=== PATIENT | male | born 1970 | race Caucasian/White ===

== ENCOUNTER 2016-07-08 20:59 | Inpatient (IN) | payer MEDICARE, OTHER ==
[2016-07-08] MEDS ORDERED: LEVOFLOXACIN 750MG-D5W PMX 750 MG in DEXTROSE/WATER 1 150ML.BAG IVPB STA (21:14)
[2016-07-08] MEDS ORDERED: SODIUM CHLORIDE 0.9% 2,000 ML IV STA (21:15)
[2016-07-08] MEDS ORDERED: DEXTROSE 50%-WATER 50 ML SYRINGE IVP STA (21:16)
[2016-07-08] MEDS ORDERED: SODIUM CHLORIDE 0.9% 1,000 ML IV ONE (21:19)
--- NOTE | 2016-07-08 21:19 | XR ---
EXAMINATION TYPE: XR chest 1V DATE OF EXAM: 07/08/2016 9:13 PM COMPARISON: 07/25/15 HISTORY: Chest pain TECHNIQUE: Single frontal view of the chest is obtained. FINDINGS: There is no focal air space opacity, pleural effusion, or pneumothorax seen. There is evidence of cardiomegaly. Pacer device is in place. The osseous structures are intact. IMPRESSION: 1. Cardiomegaly without evidence for acute pulmonary disease.
[2016-07-08] MEDS: ONDANSETRON 4 MG/2 ML VIAL IVP STA ×2 (21:41→22:38)
[2016-07-08 21:43] LABS: Calcium 8.8 mg/dL (8.4-10.2); Magnesium 2.4 mg/dL (1.6-2.3); Phosphorous 7.9 mg/dL (2.5-4.5); Potassium 5.1 mmol/L (3.5-5.1); Total Bilirubin 7.2 mg/dL (0.2-1.3); Total Protein 6.6 g/dL (6.3-8.2)
[2016-07-08 21:44] LABS: Basophils % (A) 0 %; CH 32.3; CHCM 31.7; Eosinophils % (A) 0 %; HDW 2.86; HGB 13.6 gm/dL (13.0-17.5); Hypochromasia Slight; Luc # (Auto) 0.19; Luc % (Auto) 2; Lymphocytes % (A) 22 %; MCH 32.5 pg (25.0-35.0); MCHC 31.7 g/dL (31.0-37.0); MCV 102.4 fL (80.0-100.0); Macrocytosis Slight; Mean Platelet Volume 9.5; Monocytes # (A) 0.6 k/uL (0-1.0); Monocytes % (A) 6 %; Neutrophils # (A) 6.3 k/uL (1.3-7.7); Neutrophils % (A) 69 %; RDW 14.5 % (11.5-15.5); WBC 9.1 k/uL (3.8-10.6); WBC (Perox) 9.18
--- NOTE | 2016-07-08 21:52 | ED ---
SOB HPI - General Chief Complaint: Shortness of Breath Stated Complaint: DINAH Time Seen by Provider: 07/08/16 21:17 Source: patient, family, EMS Mode of arrival: EMS Limitations: altered mental status - History of Present Illness Initial Comments: This patient is a 45-year-old man with history of cardiomyopathy and congestive heart failure, who comes into the emergency department by ambulance to be evaluated for shortness of breath. The patient does appear moderately delirious and most of the history I was able to obtain comes from the patient's parents. They state that the patient had a routine cardiology appointment at [facility] on Wednesday. While he was at the appointment the physician there felt that he was dehydrated and gave him IV fluids for about 2 hours, and he was released home following. Since that time the patient has not been very active, spending most of the his time resting. The following day he started having a little bit of shortness of breath and he was also having some dry heaves his parents report. He has not been out of bed much since that time and is respiratory status worsened tonight so they called the ambulance. The patient is denying chest pain. He is not having a productive cough. He denies fever. He also denies abdominal pain, change in bowel movements, but he does acknowledge having nausea and multiple rounds of vomiting. MD Complaint: shortness of breath -: days(s) - Related Data Home Medications Medication Instructions Recorded Confirmed Carvedilol [Coreg] 3.125 mg PO BID 07/25/15 07/25/15 Digoxin [Lanoxin] 250 mcg PO DAILY 07/25/15 07/25/15 Lisinopril [Prinivil] 5 mg PO DAILY 07/25/15 07/25/15 Potassium Chloride ER [K-Dur 20] 20 meq PO DAILY 07/25/15 07/25/15 Spironolactone [Aldactone] 25 mg PO DAILY 07/25/15 07/25/15 Torsemide [Demadex] 40 mg PO DAILY 07/25/15 07/25/15 Warfarin [Coumadin] 10 mg PO MOWEFR 07/25/15 07/26/15 Warfarin [Coumadin] 7.5 mg PO SUTUTHSA 07/26/15 07/26/15 Previous Rx's Medication Instructions Recorded HYDROcodone/APAP 5-325MG [Olpe 1 tab PO Q6HR PRN #20 tab 07/28/15 5-325] Pantoprazole [Protonix] 40 mg PO AC-BRKFST #30 tablet. 07/28/15 metroNIDAZOLE [Flagyl] 500 mg PO TID #21 tab 07/28/15 Allergies Allergy/AdvReac Type Severity Reaction Status Date / Time codeine Allergy Unknown Dyspnea Verified 07/08/16 22:15 Penicillins Allergy Unknown Dyspnea Verified 07/08/16 22:15 Review of Systems ROS Statement: Those systems with pertinent positive or pertinent negative responses have been documented in the HPI. ROS Other: All systems not noted in ROS Statement are negative. Limitations: ROS unobtainable due to patients medical condition Constitutional: Denies: fever Respiratory: Reports: cough, dyspnea. Denies: hemoptysis Cardiovascular: Denies: chest pain, palpitations, orthopnea, edema Gastrointestinal: Reports: nausea, vomiting. Denies: abdominal pain, diarrhea, melena, hematochezia Genitourinary: Denies: dysuria Musculoskeletal: Denies: back pain Neurological: Denies: headache Past Medical History Past Medical History: Atrial Fibrillation, Heart Failure, Pneumonia History of Any Multi-Drug Resistant Organisms: None Reported Past Surgical History: Cholecystectomy Additional Past Surgical History / Comment(s): pacemaker/defib, cardiac cath 2016 Past Anesthesia/Blood Transfusion Reactions: No Reported Reaction Past Psychological History: No Psychological Hx Reported Smoking Status: Current every day smoker Past Alcohol Use History: None Reported Past Drug Use History: None Reported - Past Family History Mother Family Medical History: Congestive Heart Failure (CHF) Father Family Medical History: Hyperlipidemia General Exam Limitations: no limitations General appearance: alert, in distress, cachectic, other (This patient is a middle-aged white man who appears older than his stated age, and does appear to be in respiratory distress, being moderately tachypneic. He also appears dehydrated.) Head exam: Present: atraumatic, normocephalic Eye exam: Present: normal appearance, PERRL. Absent: scleral icterus, conjunctival injection ENT exam: Present: mucous membranes dry Neck exam: Present: normal inspection, full ROM Respiratory exam: Present: respiratory distress, rhonchi. Absent: wheezes, rales, stridor, accessory muscle use, decreased breath sounds, prolonged expiratory Cardiovascular Exam: Present: tachycardia, normal heart sounds. Absent: systolic murmur, diastolic murmur, rubs, gallop GI/Abdominal exam: Present: soft. Absent: distended, tenderness, guarding, rebound, mass Extremities exam: Present: normal inspection. Absent: normal capillary refill ( Capillary refill is delayed), pedal edema, calf tenderness Back exam: Absent: CVA tenderness (R), CVA tenderness (L) Neurological exam: Present: alert. Absent: motor sensory deficit Skin exam: Present: dry, intact, mottled, other (Skin is cool and mottled). Absent: rash, cyanosis, diaphoretic, erythema, urticaria, vesicles, petechiae, pallor Course Vital Signs 07/08/16 07/08/16 07/08/16 21:06 21:21 21:30 Temperature 100.6 F H Pulse Rate 123 H 119 H Pulse Rate [ 112 H Strapping Machine Tender ] Respiratory 24 24 Rate Blood Pressure 82/54 111/75 O2 Sat by Pulse Oximetry 07/08/16 07/08/16 07/08/16 22:00 22:08 23:18 Temperature 98.5 F Pulse Rate 118 H 111 H Pulse Rate [ Strapping Machine Tender ] Respiratory 26 H 24 24 Rate Blood Pressure 121/57 185/102 O2 Sat by Pulse 100 96 Oximetry 07/09/16 07/09/16 07/09/16 00:14 00:31 01:13 Temperature 98.2 F Pulse Rate 108 H 107 H 106 H Pulse Rate [ Strapping Machine Tender ] Respiratory 26 H 24 20 Rate Blood Pressure 92/62 104/55 98/68 O2 Sat by Pulse 98 97 100 Oximetry 07/09/16 07/09/16 07/09/16 02:19 03:00 03:40 Temperature 98.1 F 97.9 F Pulse Rate 101 H 100 100 Pulse Rate [ Strapping Machine Tender ] Respiratory 24 20 20 Rate Blood Pressure 76/52 125/75 105/53 O2 Sat by Pulse 97 99 98 Oximetry 07/09/16 07/09/16 07/09/16 04:17 04:23 04:38 Temperature Pulse Rate 96 99 95 Pulse Rate [ Strapping Machine Tender ] Respiratory 20 20 Rate Blood Pressure 89/55 94/56 88/52 O2 Sat by Pulse 100 99 Oximetry 07/09/16 07/09/16 07/09/16 04:53 05:08 05:23 Temperature 97.4 F L Pulse Rate 96 97 93 Pulse Rate [ Strapping Machine Tender ] Respiratory 20 20 20 Rate Blood Pressure 83/55 90/59 93/72 O2 Sat by Pulse 98 99 96 Oximetry 07/09/16 07/09/16 07/09/16 05:47 05:53 06:07 Temperature Pulse Rate 97 95 97 Pulse Rate [ Strapping Machine Tender ] Respiratory 20 20 20 Rate Blood Pressure 97/57 95/62 103/70 O2 Sat by Pulse 98 95 97 Oximetry 07/09/16 07/09/16 06:23 06:38 Temperature Pulse Rate 98 97 Pulse Rate [ Strapping Machine Tender ] Respiratory 20 20 Rate Blood Pressure 96/68 95/65 O2 Sat by Pulse 94 L 97 Oximetry Procedures - Central Line Placement Right Femoral Consent Obtained: verbal consent Time Out Performed: Yes Patient Placed on Monitor/Pulse Ox: Yes Prep: mask, gown, gloves Central Line Prep: Chlorhexidine scrub Local Anesthesia Used: Lidocaine 1% Central Line Lumen Inserted: triple Central Line Position: good blood return, all ports aspirated, flushed, capped, sutured in place with 2-0 silk Dressing Applied: Tegaderm Patient Tolerated Procedure: well Additional Comments: Patient continued to have some oozing from the site of the central line insertion. I did remove the dressing, apply some skin adhesive at the insertion site which stop the oozing, and then replace the sterile dressing after cleansing began with chlorhexidine. - Sepsis Sepsis Focused Exam #1 Sepsis Focused Exam Date: 07/09/16 Sepsis Focused Exam Time: 02:30 Sepsis Focused Exam Complete: Yes Vital Signs & RN Notes Reviewed: Yes Capillary Refill: < 2 Seconds: Fingers, > 2 Seconds: Toes Peripheral Pulses: Weak: Radial (R), Posterior Tibialis (R) Skin Color: Mottled Respiratory Exam: rhonchi Cardiovascular Exam: tachycardia Medical Decision Making - Medical Decision Making patient is a 45-year-old man with underlying cardiomyopathy, who presents emergency Department with what appears to be severe sepsis. The patient received fluid resuscitation and broad-spectrum antibiotics. The patient's blood pressure did respond to fluids initially and then it did trend hypotensive again. In light of this a central line was placed and the patient had additional fluids and pressors started. Patient case discussed with the third rail installer, with the admitting physician, and recommendations are incorporated. Patient initially not producing urine however after fluids we did obtain urine that does appear to show significant pyuria. The patient's serial exams do appear to be improving. The mottling of the skin is improving and his mentation is better. Patient admitted for further ICU care. Remains in critical but slightly improved condition. - Lab Data Result diagrams: 07/08/16 21:03 07/08/16 21:03 Lab Results 07/08/16 07/08/16 07/08/16 Range/Units 21:03 21:03 21:03 WBC 9.1 (3.8-10.6) k/uL RBC 4.20 L (4.30-5.90) m/uL Hgb 13.6 (13.0-17.5) gm/dL Hct 43.0 (39.0-53.0) % MCV 102.4 H (80.0-100.0) fL MCH 32.5 (25.0-35.0) pg MCHC 31.7 (31.0-37.0) g/dL RDW 14.5 (11.5-15.5) % Plt Count 169 (150-450) k/uL Neutrophils % 69 % Lymphocytes % 22 % Monocytes % 6 % Eosinophils % 0 % Basophils % 0 % Neutrophils # 6.3 (1.3-7.7) k/uL Lymphocytes # 2.0 (1.0-4.8) k/uL Monocytes # 0.6 (0-1.0) k/uL Eosinophils # 0.0 (0-0.7) k/uL Basophils # 0.0 (0-0.2) k/uL Hypochromasia Slight Macrocytosis Slight PT (9.0-12.0) sec INR (<1.1) APTT (22.0-30.0) sec D-Dimer 3.99 H (<0.60) mg/L FEU Sample Site ABG pH (7.35-7.45) ABG pCO2 (35-45) mmHg ABG pO2 (83-108) mmHg ABG HCO3 (21-25) mmol/L ABG Total CO2 (19-24) mmol/L ABG O2 Saturation (94-97) % ABG Base Excess mmol/L FiO2 % Sodium (137-145) mmol/L Potassium (3.5-5.1) mmol/L Chloride (98-107) mmol/L Carbon Dioxide (22-30) mmol/L Anion Gap mmol/L BUN (9-20) mg/dL Creatinine (0.66-1.25) mg/dL Est GFR (MDRD) Af Amer (>60 ml/min/1.73 sqM) Est GFR (MDRD) Non-Af (>60 ml/min/1.73 sqM) Glucose (74-99) mg/dL POC Glucose (mg/dL) (75-99) mg/dL POC Glu Staff Nurse ID Plasma Lactic Acid Magdi (0.7-2.0) mmol/L Calcium (8.4-10.2) mg/dL Phosphorus (2.5-4.5) mg/dL Magnesium (1.6-2.3) mg/dL Total Bilirubin (0.2-1.3) mg/dL AST (17-59) U/L ALT (21-72) U/L Alkaline Phosphatase (38-126) U/L Total Creatine Kinase 494 H (55-170) U/L CK-MB (CK-2) 5.0 H* (0.0-2.4) ng/mL CK-MB (CK-2) Rel Index 1.0 Troponin I 0.079 H* (0.000-0.034) ng/mL NT-Pro-B Natriuret Pep pg/mL Total Protein (6.3-8.2) g/dL Albumin (3.5-5.0) g/dL Amylase (30-110) U/L Lipase (23-300) U/L Urine Color Urine Appearance (Clear) Urine pH (5.0-8.0) Ur Specific [place] (1.001-1.035) Urine Protein (Negative) Urine Glucose (UA) (Negative) Urine Ketones (Negative) Urine Blood (Negative) Urine Nitrite (Negative) Urine Bilirubin (Negative) Urine Urobilinogen (<2.0) mg/dL Ur Leukocyte Esterase (Negative) Urine RBC (0-5) /hpf Urine WBC (0-5) /hpf Ur Squamous Epith Cells (0-4) /hpf Urine Bacteria (None) /hpf Digoxin ng/mL Serum Alcohol mg/dL Blood Type Blood Type Recheck Antibody Screen Spec Expiration Date 07/08/16 07/08/16 07/08/16 Range/Units 21:03 21:03 21:03 WBC (3.8-10.6) k/uL RBC (4.30-5.90) m/uL Hgb (13.0-17.5) gm/dL Hct (39.0-53.0) % MCV (80.0-100.0) fL MCH (25.0-35.0) pg MCHC (31.0-37.0) g/dL RDW (11.5-15.5) % Plt Count (150-450) k/uL Neutrophils % % Lymphocytes % % Monocytes % % Eosinophils % % Basophils % % Neutrophils # (1.3-7.7) k/uL Lymphocytes # (1.0-4.8) k/uL Monocytes # (0-1.0) k/uL Eosinophils # (0-0.7) k/uL Basophils # (0-0.2) k/uL Hypochromasia Macrocytosis PT (9.0-12.0) sec INR (<1.1) APTT (22.0-30.0) sec D-Dimer (<0.60) mg/L FEU Sample Site ABG pH (7.35-7.45) ABG pCO2 (35-45) mmHg ABG pO2 (83-108) mmHg ABG HCO3 (21-25) mmol/L ABG Total CO2 (19-24) mmol/L ABG O2 Saturation (94-97) % ABG Base Excess mmol/L FiO2 % Sodium 133 L (137-145) mmol/L Potassium 5.1 (3.5-5.1) mmol/L Chloride 100 (98-107) mmol/L Carbon Dioxide 8 L* (22-30) mmol/L Anion Gap 25 mmol/L BUN 32 H (9-20) mg/dL Creatinine 1.80 H (0.66-1.25) mg/dL Est GFR (MDRD) Af Amer 49 (>60 ml/min/1.73 sqM) Est GFR (MDRD) Non-Af 41 (>60 ml/min/1.73 sqM) Glucose 59 L (74-99) mg/dL POC Glucose (mg/dL) (75-99) mg/dL POC Glu Staff Nurse ID Plasma Lactic Acid Magdi 13.6 H* (0.7-2.0) mmol/L Calcium 8.8 (8.4-10.2) mg/dL Phosphorus 7.9 H (2.5-4.5) mg/dL Magnesium 2.4 H (1.6-2.3) mg/dL Total Bilirubin 7.2 H (0.2-1.3) mg/dL AST 578 H (17-59) U/L ALT 490 H (21-72) U/L Alkaline Phosphatase 86 (38-126) U/L Total Creatine Kinase (55-170) U/L CK-MB (CK-2) (0.0-2.4) ng/mL CK-MB (CK-2) Rel Index Troponin I (0.000-0.034) ng/mL NT-Pro-B Natriuret Pep 04617 pg/mL Total Protein 6.6 (6.3-8.2) g/dL Albumin 4.0 (3.5-5.0) g/dL Amylase 42 (30-110) U/L Lipase 145 (23-300) U/L Urine Color Urine Appearance (Clear) Urine pH (5.0-8.0) Ur Specific Whitefield (1.001-1.035) Urine Protein (Negative) Urine Glucose (UA) (Negative) Urine Ketones (Negative) Urine Blood (Negative) Urine Nitrite (Negative) Urine Bilirubin (Negative) Urine Urobilinogen (<2.0) mg/dL Ur Leukocyte Esterase (Negative) Urine RBC (0-5) /hpf Urine WBC (0-5) /hpf Ur Squamous Epith Cells (0-4) /hpf Urine Bacteria (None) /hpf Digoxin ng/mL Serum Alcohol mg/dL Blood Type Blood Type Recheck Antibody Screen Spec Expiration Date 07/08/16 07/08/16 07/08/16 Range/Units 21:03 21:03 22:00 WBC (3.8-10.6) k/uL RBC (4.30-5.90) m/uL Hgb (13.0-17.5) gm/dL Hct (39.0-53.0) % MCV (80.0-100.0) fL MCH (25.0-35.0) pg MCHC (31.0-37.0) g/dL RDW (11.5-15.5) % Plt Count (150-450) k/uL Neutrophils % % Lymphocytes % % Monocytes % % Eosinophils % % Basophils % % Neutrophils # (1.3-7.7) k/uL Lymphocytes # (1.0-4.8) k/uL Monocytes # (0-1.0) k/uL Eosinophils # (0-0.7) k/uL Basophils # (0-0.2) k/uL Hypochromasia Macrocytosis PT 55.1 H (9.0-12.0) sec INR 5.5 H* (<1.1) APTT 25.9 (22.0-30.0) sec D-Dimer (<0.60) mg/L FEU Sample Site ABG pH (7.35-7.45) ABG pCO2 (35-45) mmHg ABG pO2 (83-108) mmHg ABG HCO3 (21-25) mmol/L ABG Total CO2 (19-24) mmol/L ABG O2 Saturation (94-97) % ABG Base Excess mmol/L FiO2 % Sodium (137-145) mmol/L Potassium (3.5-5.1) mmol/L Chloride (98-107) mmol/L Carbon Dioxide (22-30) mmol/L Anion Gap mmol/L BUN (9-20) mg/dL Creatinine (0.66-1.25) mg/dL Est GFR (MDRD) Af Amer (>60 ml/min/1.73 sqM) Est GFR (MDRD) Non-Af (>60 ml/min/1.73 sqM) Glucose (74-99) mg/dL POC Glucose (mg/dL) (75-99) mg/dL POC Glu Staff Nurse ID Plasma Lactic Acid Magdi (0.7-2.0) mmol/L Calcium (8.4-10.2) mg/dL Phosphorus (2.5-4.5) mg/dL Magnesium (1.6-2.3) mg/dL Total Bilirubin (0.2-1.3) mg/dL AST (17-59) U/L ALT (21-72) U/L Alkaline Phosphatase (38-126) U/L Total Creatine Kinase (55-170) U/L CK-MB (CK-2) (0.0-2.4) ng/mL CK-MB (CK-2) Rel Index Troponin I (0.000-0.034) ng/mL NT-Pro-B Natriuret Pep pg/mL Total Protein (6.3-8.2) g/dL Albumin (3.5-5.0) g/dL Amylase (30-110) U/L Lipase (23-300) U/L Urine Color Urine Appearance (Clear) Urine pH (5.0-8.0) Ur Specific [place] (1.001-1.035) Urine Protein (Negative) Urine Glucose (UA) (Negative) Urine Ketones (Negative) Urine Blood (Negative) Urine Nitrite (Negative) Urine Bilirubin (Negative) Urine Urobilinogen (<2.0) mg/dL Ur Leukocyte Esterase (Negative) Urine RBC (0-5) /hpf Urine WBC (0-5) /hpf Ur Squamous Epith Cells (0-4) /hpf Urine Bacteria (None) /hpf Digoxin 0.5 ng/mL Serum Alcohol <10 mg/dL Blood Type B Positive Blood Type Recheck B Pos Antibody Screen NEGATIVE Spec Expiration Date 07/11/2016230207/08/16 07/09/16 07/09/16 Range/Units 23:21 01:10 02:15 WBC (3.8-10.6) k/uL RBC (4.30-5.90) m/uL Hgb (13.0-17.5) gm/dL Hct (39.0-53.0) % MCV (80.0-100.0) fL MCH (25.0-35.0) pg MCHC (31.0-37.0) g/dL RDW (11.5-15.5) % Plt Count (150-450) k/uL Neutrophils % % Lymphocytes % % Monocytes % % Eosinophils % % Basophils % % Neutrophils # (1.3-7.7) k/uL Lymphocytes # (1.0-4.8) k/uL Monocytes # (0-1.0) k/uL Eosinophils # (0-0.7) k/uL Basophils # (0-0.2) k/uL Hypochromasia Macrocytosis PT (9.0-12.0) sec INR (<1.1) APTT (22.0-30.0) sec D-Dimer (<0.60) mg/L FEU Sample Site ABG pH (7.35-7.45) ABG pCO2 (35-45) mmHg ABG pO2 (83-108) mmHg ABG HCO3 (21-25) mmol/L ABG Total CO2 (19-24) mmol/L ABG O2 Saturation (94-97) % ABG Base Excess mmol/L FiO2 % Sodium (137-145) mmol/L Potassium (3.5-5.1) mmol/L Chloride (98-107) mmol/L Carbon Dioxide (22-30) mmol/L Anion Gap mmol/L BUN (9-20) mg/dL Creatinine (0.66-1.25) mg/dL Est GFR (MDRD) Af Amer (>60 ml/min/1.73 sqM) Est GFR (MDRD) Non-Af (>60 ml/min/1.73 sqM) Glucose (74-99) mg/dL POC Glucose (mg/dL) 107 H (75-99) mg/dL POC Glu Staff Nurse ID Lyly Mcpherson Plasma Lactic Acid Magdi 14.4 H* (0.7-2.0) mmol/L Calcium (8.4-10.2) mg/dL Phosphorus (2.5-4.5) mg/dL Magnesium (1.6-2.3) mg/dL Total Bilirubin (0.2-1.3) mg/dL AST (17-59) U/L ALT (21-72) U/L Alkaline Phosphatase (38-126) U/L Total Creatine Kinase (55-170) U/L CK-MB (CK-2) (0.0-2.4) ng/mL CK-MB (CK-2) Rel Index Troponin I (0.000-0.034) ng/mL NT-Pro-B Natriuret Pep pg/mL Total Protein (6.3-8.2) g/dL Albumin (3.5-5.0) g/dL Amylase (30-110) U/L Lipase (23-300) U/L Urine Color Dark Red Urine Appearance Turbid (Clear) Urine pH 6.5 (5.0-8.0) Ur Specific [place] 1.024 (1.001-1.035) Urine Protein 3+ H (Negative) Urine Glucose (UA) 1+ H (Negative) Urine Ketones Negative (Negative) Urine Blood Large H (Negative) Urine Nitrite Negative (Negative) Urine Bilirubin Negative (Negative) Urine Urobilinogen <2.0 (<2.0) mg/dL Ur Leukocyte Esterase Large H (Negative) Urine RBC >182 H (0-5) /hpf Urine WBC >182 H (0-5) /hpf Ur Squamous Epith Cells 9 H (0-4) /hpf Urine Bacteria Few H (None) /hpf Digoxin ng/mL Serum Alcohol mg/dL Blood Type Blood Type Recheck Antibody Screen Spec Expiration Date 07/09/16 07/09/16 Range/Units 02:40 02:54 WBC (3.8-10.6) k/uL RBC (4.30-5.90) m/uL Hgb (13.0-17.5) gm/dL Hct (39.0-53.0) % MCV (80.0-100.0) fL MCH (25.0-35.0) pg MCHC (31.0-37.0) g/dL RDW (11.5-15.5) % Plt Count (150-450) k/uL Neutrophils % % Lymphocytes % % Monocytes % % Eosinophils % % Basophils % % Neutrophils # (1.3-7.7) k/uL Lymphocytes # (1.0-4.8) k/uL Monocytes # (0-1.0) k/uL Eosinophils # (0-0.7) k/uL Basophils # (0-0.2) k/uL Hypochromasia Macrocytosis PT (9.0-12.0) sec INR (<1.1) APTT (22.0-30.0) sec D-Dimer (<0.60) mg/L FEU Sample Site rbrac ABG pH 7.13 L* (7.35-7.45) ABG pCO2 17 L* (35-45) mmHg ABG pO2 108 (83-108) mmHg ABG HCO3 5 L* (21-25) mmol/L ABG Total CO2 6 L (19-24) mmol/L ABG O2 Saturation 96.0 (94-97) % ABG Base Excess -22.3 mmol/L FiO2 32 % Sodium (137-145) mmol/L Potassium (3.5-5.1) mmol/L Chloride (98-107) mmol/L Carbon Dioxide (22-30) mmol/L Anion Gap mmol/L BUN (9-20) mg/dL Creatinine (0.66-1.25) mg/dL Est GFR (MDRD) Af Amer (>60 ml/min/1.73 sqM) Est GFR (MDRD) Non-Af (>60 ml/min/1.73 sqM) Glucose (74-99) mg/dL POC Glucose (mg/dL) (75-99) mg/dL POC Glu Staff Nurse ID Plasma Lactic Acid Magdi (0.7-2.0) mmol/L Calcium (8.4-10.2) mg/dL Phosphorus (2.5-4.5) mg/dL Magnesium (1.6-2.3) mg/dL Total Bilirubin (0.2-1.3) mg/dL AST (17-59) U/L ALT (21-72) U/L Alkaline Phosphatase (38-126) U/L Total Creatine Kinase (55-170) U/L CK-MB (CK-2) (0.0-2.4) ng/mL CK-MB (CK-2) Rel Index Troponin I 0.108 H* (0.000-0.034) ng/mL NT-Pro-B Natriuret Pep pg/mL Total Protein (6.3-8.2) g/dL Albumin (3.5-5.0) g/dL Amylase (30-110) U/L Lipase (23-300) U/L Urine Color Urine Appearance (Clear) Urine pH (5.0-8.0) Ur Specific [place] (1.001-1.035) Urine Protein (Negative) Urine Glucose (UA) (Negative) Urine Ketones (Negative) Urine Blood (Negative) Urine Nitrite (Negative) Urine Bilirubin (Negative) Urine Urobilinogen (<2.0) mg/dL Ur Leukocyte Esterase (Negative) Urine RBC (0-5) /hpf Urine WBC (0-5) /hpf Ur Squamous Epith Cells (0-4) /hpf Urine Bacteria (None) /hpf Digoxin ng/mL Serum Alcohol mg/dL Blood Type Blood Type Recheck Antibody Screen Spec Expiration Date - EKG Data -: EKG Interpreted by Ca EKG shows normal: sinus rhythm, axis (Normal), intervals (Normal), ST-T waves ( There are T inversions in the inferior leads suggestive of possible inferior ischemia.) Rate: tachycardia (Rate approximately 122 bpm) Interpretation: other (Possible old lateral infarct) Critical Care Time Critical Care Time: Yes (75 minutes) Disposition Clinical Impression: Severe sepsis, Elevated troponin I measurement, Lactic acidosis, Abdominal pain , Vomiting, Coumadin toxicity, Acute renal failure (ARF), Elevated transaminase level, Urinary tract infection Disposition: ADMITTED IP TO THIS HOSP Condition: Critical
[2016-07-08] MEDS ORDERED: RX INFO: IV CONTRAST WAS GIVEN 1 EACH MISC MISCELLANE PRN (22:07)
[2016-07-08 22:10] LABS: Troponin I 0.079 ng/mL (0.000-0.034)
[2016-07-08 22:16] LABS: Partial Thromboplastin Time 25.9 sec (22.0-30.0)
[2016-07-08 22:21] LABS: Prothrombin Time 55.1 sec (9.0-12.0)
[2016-07-08 22:25] LABS: INR 5.5 (<1.1)
[2016-07-08] MEDS: TOPICAL SKIN ADHESIVE 1 EACH AMP TOPICAL ONE (22:41)
[2016-07-08 22:51] LABS: Alcohol <10 mg/dL; Digoxin 0.5 ng/mL
[2016-07-08] MEDS ORDERED: MORPHINE SULFATE 4 MG/ML SYRINGE IV STA (23:04)
[2016-07-08 23:23] LABS: Glucose,Whole Blood 107 mg/dL (75-99)
[2016-07-09] MEDS ORDERED: SODIUM CHLORIDE 0.9% 1,000 ML IV STA (00:21)
--- NOTE | 2016-07-09 00:22 | CT ---
EXAM: CT Angiography Chest With Intravenous Contrast CLINICAL HISTORY: Reason: Pain TECHNIQUE: Axial computed tomographic angiography images of the chest with intravenous contrast using pulmonary embolism protocol. CTDI is 110.60 mGy and DLP is 253.70 mGy-cm. This CT exam was performed using one or more of the following dose reduction techniques: automated exposure control, adjustment of the mA and/or kV according to patient size, and/or use of iterative reconstruction technique. MIP reconstructed images were created and reviewed. COMPARISON: None. FINDINGS: Pulmonary arteries: No evidence of central or segmental PE. Assessment of the subsegmental branches is more limited. Aorta: Evaluation of the thoracic aorta is limited by the absence of enhancement at time of scanning. There is no evidence of thoracic aortic aneurysm however. Lungs: Dependent changes, right greater than left, with mild emphysema present. There is probably a calcified granuloma within the superior segment of the right lower lobe along with calcified mediastinal nodes. Pleural space: Moderate right and small left pleural effusions. No pneumothorax. Heart: Marked, four-chamber cardiomegaly with significant reflux into the suprahepatic IVC and hepatic veins implying the presence of impaired right-sided cardiac function. No significant pericardial effusion. Bones/joints: No acute fracture. Lymph nodes: There is multifocal mediastinal adenopathy. For example, prevascular nodes measure up to 15 mm in short axis diameter. Intraperitoneal space: Note is made of upper abdominal ascites. Tubes, lines and devices: There is a left-sided defibrillator present. IMPRESSION: 1. No evidence of central or segmental PE. 2. Moderate right and small left pleural effusions. Given the presence of marked cardiomegaly, this suggests a component of mild CHF/volume overload. 3. Additional findings as above includes the presence of emphysema, and nonspecific multifocal mediastinal adenopathy.
--- NOTE | 2016-07-09 00:30 | CT ---
EXAM: CT Abdomen and Pelvis With Intravenous Contrast CLINICAL HISTORY: Reason: Pain TECHNIQUE: Axial computed tomography images of the abdomen and pelvis with intravenous contrast. CTDI is 12.20 mGy and DLP is 488.0 mGy-cm. This CT exam was performed using one or more of the following dose reduction techniques: automated exposure control, adjustment of the mA and/or kV according to patient size, and/or use of iterative reconstruction technique. COMPARISON: 07/27/15 CT FINDINGS: Lower thorax: Moderate right and small left pleural effusions along with marked cardiomegaly and defibrillator as noted on separate chest CT. ABDOMEN: Note that scanning was performed in arterial phase, with additional venous phase imaging obtained through the upper abdomen. Liver: There is reflux of contrast into the IVC and hepatic veins. No focal hepatic lesion is seen with mild hepatomegaly present. Gallbladder and bile ducts: Prior cholecystectomy. No ductal dilation. Pancreas: Unremarkable. No mass. No ductal dilation. Spleen: Tiny splenic granulomata are again present. Adrenals: Unremarkable. No mass. Kidneys and ureters: Kidneys appear symmetric without stone or hydronephrosis seen. Stomach and bowel: Mildly distended air and fluid-filled stomach. No dilated small or large bowel loops are seen. Appendix: No findings to suggest acute appendicitis. PELVIS: Bladder: Alfonso catheter within decompressed urinary bladder. Reproductive: Unremarkable as visualized. ABDOMEN and PELVIS: Intraperitoneal space: There is now a small volume of ascites present within the abdomen and pelvis. No free air. Bones/joints: Bones are stable including old healed left-sided pubic rami fractures. Vasculature: Atherosclerotic calcification without evidence of abdominal aortic aneurysm. In general, the iliac and visualized femoral arterial systems are small caliber throughout, and decreased in caliber from the prior exam. Lymph nodes: No definite adenopathy is seen. IMPRESSION: 1. New small volume of abdominal and pelvic ascites. 2. Of note, arterial caliber within the iliac and femoral arterial systems in general is relatively diminished compared to the prior exam, perhaps a manifestation of the patient's cardiac impairment. 3. Additional findings as above.
[2016-07-09] MEDS ORDERED: IV VANCOMYCIN PER PHARMACY 1 EACH MISC MISCELLANE PRN (02:11)
[2016-07-09] MEDS ORDERED: VANCOMYCIN 1,250 MG in SODIUM CHLORIDE 0.9% 250 ML IVPB STA (02:26)
[2016-07-09 02:44] LABS: Appearance,Urine Turbid (Clear); Bacteria,Urine Few /hpf; Bilirubin,Urine Negative (Negative); Glucose,Urine (UA) 1+ (Negative); Ketones,Urine Negative (Negative); Leukocyte Esterase,Urine Large (Negative); Nitrite,Urine Negative (Negative); PH, Urine 6.5 (5.0-8.0); Particle Count 69540; Protein,Urine 3+ (Negative); RBC,Urine >182 /hpf (0-5); Specific Gravity,Urine 1.024 (1.001-1.035); Squamous Epithelial Cell,Urine 9 /hpf (0-4); UA Billing (MACRO vs. MICRO) MICRO; Urobilinogen,Urine <2.0 mg/dL (<2.0); WBC,Urine >182 /hpf (0-5)
[2016-07-09 02:49] LABS: ABG Base Excess -22.3 mmol/L; ABG HCO3 5 mmol/L (21-25); ABG PCO2 17 mmHg (35-45); ABG PH 7.13 (7.35-7.45); ABG PO2 108 mmHg (83-108); ABG TCO2 6 mmol/L (19-24)
[2016-07-09] MEDS ORDERED: SODIUM CHLORIDE 0.9% 2,000 ML IV ONE (03:04)
[2016-07-09] MEDS ORDERED: NOREPINEPHRIN 4 MG-0.9% NS PMX 4 MG/250 ML ML IV ONE (03:04)
[2016-07-09] MEDS ORDERED: MORPHINE SULFATE 4 MG/ML SYRINGE IV STA (03:06)
[2016-07-09] MEDS ORDERED: ACETAMINOPHEN SUPPOSITORY 650 MG SUPP RECTAL PRN (03:07)
[2016-07-09] MEDS ORDERED: HYDROcodone/APAP 5-325MG 1 EACH TAB PO PRN (03:07)
[2016-07-09] MEDS ORDERED: NALOXONE 0.4 MG/ML 1 ML VIAL IV PRN (03:07)
[2016-07-09] MEDS ORDERED: ACETAMINOPHEN TAB 325 MG TAB PO PRN (03:07)
[2016-07-09] MEDS: TOPICAL SKIN ADHESIVE 1 EACH AMP TOPICAL ONE (03:37)
[2016-07-09] MEDS: SODIUM CHLORIDE 0.9% 1,000 ML IV SCH ×3 (03:38→14:17)
[2016-07-09 03:49] LABS: Glucose,Whole Blood 87 mg/dL (75-99)
[2016-07-09 05:05] LABS: Glucose,Whole Blood 80 mg/dL (75-99)
[2016-07-09 07:14] LABS: Glucose,Whole Blood 64 mg/dL (75-99)
[2016-07-09 08:37] LABS: Glucose,Whole Blood 126 mg/dL (75-99)
[2016-07-09] MEDS: FAMOTIDINE 20 MG/2 ML VIAL IV SCH ×2 (12:03→20:33)
[2016-07-09] MEDS: DOCUSATE 100 MG CAP PO SCH ×2 (12:03→20:33)
[2016-07-09] MEDS ORDERED: PHYTONADIONE 5 MG in SODIUM CHLORIDE 0.9% 50 ML IVPB STA ×2 (12:36→23:43)
--- NOTE | 2016-07-09 13:05 | P.CNPUL ---
History of Present Illness Consult date: 07/09/16 Reason for consult: dyspnea Chief complaint: Sepsis History of present illness: 44-year-old male patient, advanced cardiomyopathy of a nonischemic type, in addition to a previous history of chronic atrial fibrillation, alcoholism, pancreatitis, who has an AICD in place, and he is being followed up by cardiology at [facility]. The patient was last seen at [facility] few days ago. The patient has a routine appointment artery was felt to be hypotensive and dehydrated. He was given IV fluids for about 2 hours and then he was released home. Subsequently, the patient had become again short of breath and he was having dry heaves and for that reason he came into the hospital where he was found to have significant abnormalities. The patient was found to be hypotensive. At the same time was found to have severe metabolic acidosis of a anion gap type and this was essentially lactic acidosis. Urine was cloudy and 30 and a Alfonso catheter was inserted and the urinalysis quite abnormal. In addition, the patient had been Coumadin toxic and he was in acute kidney failure with a creatinine of 1.8. Overnight, the patient was given IV fluids. He received IV fluid, triple-lumen catheter was inserted and the patient was started on pressors for hypotension currently the patient's blood pressure is stable on 5 mics of levo fed for blood pressure support. Troponins were mildly positive with 0.07 and 0.1 respectively 2, proBNP level was markedly elevated at 56,000, blood gases showed severe metabolic acidosis and the CAT scan of the chest showed COPD with small better pleural effusions and there was evidence of any pulmonary embolism. The CAT scan of the abdomen and pelvis also showed small volume of abdominal ascites and the patient had hepatomegaly and evidence of right-sided heart failure. The patient was seen and evaluated this morning. He is doing well. He is alert and awake. His urine output remains low. No nausea. No vomiting. No change in mental status. No chest pain. No shortness of breath. He feels much better and improved compared to yesterday. No hemoptysis. No pleurisy. No other complaints otherwise. Review of Systems A 12 point review of system was done and the positive findings are most above history of present illness. The patient denied having any dysuria fixed urgency. No bloody urine. No nausea or vomiting. No significant abdominal pain. No chest pain. Shortness of breath is improving. Past Medical History Past Medical History: Atrial Fibrillation, Heart Failure, Pneumonia Additional Past Medical History / Comment(s): Severe cardiomyopathy with an ejection fraction of less than 20%, previous history of AICD placement, chronic atrial fibrillation, history of alcoholism and pancreatitis, history cholecystectomy for history of biliary dyskinesia and gangrene, hypertension History of Any Multi-Drug Resistant Organisms: None Reported Past Surgical History: AICD, Cholecystectomy Additional Past Surgical History / Comment(s): 2009 AICD, cardiac cath 2016, vasectomy. Past Anesthesia/Blood Transfusion Reactions: No Reported Reaction Type of Cardiac Device: AICD Device Placement Date:: 2008 Past Psychological History: No Psychological Hx Reported Smoking Status: Current every day smoker Past Alcohol Use History: None Reported Additional Past Alcohol Use History / Comment(s): Pt started smoking in 1986 and is down to 10 cigarettes a day. He quit drinking in 2008. Past Drug Use History: None Reported - Past Family History Mother Family Medical History: Congestive Heart Failure (CHF) Father Family Medical History: Hyperlipidemia Medications and Allergies Home Medications Medication Instructions Recorded Confirmed Type Carvedilol [Coreg] 6.25 mg PO BID 07/25/15 07/09/16 History Lisinopril [Prinivil] 2.5 mg PO DAILY 07/25/15 07/09/16 History Warfarin [Coumadin] 10 mg PO MOWE 07/25/15 07/09/16 History Cetirizine HCl [Zyrtec] 10 mg PO DAILY 07/09/16 07/09/16 History Digoxin [Lanoxin] 125 mcg PO DAILY 07/09/16 07/09/16 History Warfarin [Coumadin] 7.5 mg PO SUTUTHFRSA 07/09/16 07/09/16 History Allergies Allergy/AdvReac Type Severity Reaction Status Date / Time codeine Allergy Unknown Dyspnea Verified 07/09/16 09:22 Penicillins Allergy Unknown Dyspnea Verified 07/09/16 09:22 Physical Exam Vitals: Vital Signs Temp Pulse Pulse Resp BP Pulse Ox 07/09/16 12:08 104 H 18 107/84 98 07/09/16 11:53 98 18 101/80 99 07/09/16 11:38 98.2 F 96 18 103/78 99 07/09/16 11:23 96 18 103/78 95 07/09/16 11:08 98 18 105/76 96 05/18/17 10:53 98 18 99/75 96 05/18/17 10:38 98 18 97/76 94 L 05/18/17 10:23 96 18 102/72 95 05/18/17 10:08 98.0 F 96 18 103/72 97 05/18/17 09:53 94 18 102/69 94 L 05/18/17 09:23 94 18 102/71 94 L 05/18/17 09:08 98.0 F 92 18 109/69 96 05/18/17 08:52 97 H 99/71 96 05/18/17 08:38 96 18 95/63 97 05/18/17 08:23 94 18 95/71 97 05/18/17 08:08 97.5 F L 92 18 96/71 99 05/18/17 07:53 94 18 94/67 96 05/18/17 07:38 92 18 100/68 100 05/18/17 07:23 98 18 98/67 100 05/18/17 07:09 94 18 83/64 100 05/18/17 06:38 97 20 95/65 97 05/18/17 06:23 98 20 96/68 94 L 05/18/17 06:07 97 20 103/70 97 05/18/17 05:53 95 20 95/62 95 05/18/17 05:47 97 20 97/57 98 05/18/17 05:23 93 20 93/72 96 05/18/17 05:08 97.4 F L 97 20 90/59 99 05/18/17 04:53 96 20 83/55 98 05/18/17 04:38 95 20 88/52 99 05/18/17 04:23 99 94/56 05/18/17 04:17 96 20 89/55 100 05/18/17 03:40 97.9 F 100 20 105/53 98 05/18/17 03:00 100 20 125/75 99 05/18/17 02:19 98.1 F 101 H 24 76/52 97 05/18/17 01:13 98.2 F 106 H 20 98/68 100 05/18/17 00:31 107 H 24 104/55 97 05/18/17 00:14 108 H 26 H 92/62 98 05/17/17 23:18 98.5 F 111 H 24 185/102 96 07/08/16 22:08 118 H 24 121/57 100 07/08/16 22:00 26 H 07/08/16 21:30 112 H 07/08/16 21:21 119 H 24 111/75 07/08/16 21:06 100.6 F H 123 H 24 82/54 Intake and Output 07/08/16 07/09/16 07/09/16 22:59 06:59 14:59 Output Total 200 Balance -200 Output: Urine 200 Other: Weight 66.678 kg Thin and frail nonacute distress communicating awake and alert.Head exam was generally normal. There was no scleral icterus or corneal arcus. Mucous membranes were moist. Examination of the neck shows some mild JVDs no goiter or neck masses. No thrush no oral lesions. Mucous members are dry. Lung sounds are diminished in lung bases bilaterally otherwise there is no crackles wheezes or rhonchi. Pacemaker pocket condition over the left anterior chest which is currently intact. Heart sounds are tachycardic pulses +2. No significant murmurs appreciated. Abdomen is slightly distended soft. No direct tenderness rebound tensile guarding. Extremities show diminished pulses in the dorsalis pedis and the posterior tibialis. The feet are cold. Diminished pulses in the popliteal area. No cyanosis. No clubbing. Neurologically the patient is awake and alert. Results - Laboratory Findings CBC and BMP: 07/08/16 21:03 07/08/16 21:03 ABG ABG pH 7.13 (7.35-7.45) L* 07/09/16 02:40 ABG pCO2 17 mmHg (35-45) L* 07/09/16 02:40 ABG pO2 108 mmHg (83-108) 07/09/16 02:40 ABG O2 Saturation 96.0 % (94-97) 07/09/16 02:40 PT/INR, D-dimer PT 55.1 sec (9.0-12.0) H 07/08/16 21:03 INR 5.5 (<1.1) H* 07/08/16 21:03 D-Dimer 3.99 mg/L FEU (<0.60) H 07/08/16 21:03 Abnormal lab findings: Abnormal Labs 07/08/16 07/08/16 07/08/16 21:03 21:03 21:03 RBC 4.20 L MCV 102.4 H PT INR D-Dimer 3.99 H ABG pH ABG pCO2 ABG HCO3 ABG Total CO2 Sodium Carbon Dioxide BUN Creatinine Glucose POC Glucose (mg/dL) Plasma Lactic Acid Magdi Phosphorus Magnesium Total Bilirubin AST ALT Total Creatine Kinase 494 H CK-MB (CK-2) 5.0 H* Troponin I 0.079 H* Urine Protein Urine Glucose (UA) Urine Blood Ur Leukocyte Esterase Urine RBC Urine WBC Ur Squamous Epith Cells Urine Bacteria 07/08/16 07/08/16 07/08/16 21:03 21:03 21:03 RBC MCV PT 55.1 H INR 5.5 H* D-Dimer ABG pH ABG pCO2 ABG HCO3 ABG Total CO2 Sodium 133 L Carbon Dioxide 8 L* BUN 32 H Creatinine 1.80 H Glucose 59 L POC Glucose (mg/dL) Plasma Lactic Acid Magdi 13.6 H* Phosphorus 7.9 H Magnesium 2.4 H Total Bilirubin 7.2 H AST 578 H ALT 490 H Total Creatine Kinase CK-MB (CK-2) Troponin I Urine Protein Urine Glucose (UA) Urine Blood Ur Leukocyte Esterase Urine RBC Urine WBC Ur Squamous Epith Cells Urine Bacteria 07/08/16 07/08/16 07/09/16 21:04 23:21 01:10 RBC MCV PT INR D-Dimer ABG pH ABG pCO2 ABG HCO3 ABG Total CO2 Sodium Carbon Dioxide BUN Creatinine Glucose POC Glucose (mg/dL) 64 L 107 H Plasma Lactic Acid Magdi 14.4 H* Phosphorus Magnesium Total Bilirubin AST ALT Total Creatine Kinase CK-MB (CK-2) Troponin I Urine Protein Urine Glucose (UA) Urine Blood Ur Leukocyte Esterase Urine RBC Urine WBC Ur Squamous Epith Cells Urine Bacteria 07/09/16 07/09/16 07/09/16 02:15 02:40 02:54 RBC MCV PT INR D-Dimer ABG pH 7.13 L* ABG pCO2 17 L* ABG HCO3 5 L* ABG Total CO2 6 L Sodium Carbon Dioxide BUN Creatinine Glucose POC Glucose (mg/dL) Plasma Lactic Acid Magdi Phosphorus Magnesium Total Bilirubin AST ALT Total Creatine Kinase CK-MB (CK-2) Troponin I 0.108 H* Urine Protein 3+ H Urine Glucose (UA) 1+ H Urine Blood Large H Ur Leukocyte Esterase Large H Urine RBC >182 H Urine WBC >182 H Ur Squamous Epith Cells 9 H Urine Bacteria Few H 07/09/16 07/09/16 05:18 08:34 RBC MCV PT INR D-Dimer ABG pH ABG pCO2 ABG HCO3 ABG Total CO2 Sodium Carbon Dioxide BUN Creatinine Glucose POC Glucose (mg/dL) 126 H Plasma Lactic Acid Magdi 12.0 H* Phosphorus Magnesium Total Bilirubin AST ALT Total Creatine Kinase CK-MB (CK-2) Troponin I Urine Protein Urine Glucose (UA) Urine Blood Ur Leukocyte Esterase Urine RBC Urine WBC Ur Squamous Epith Cells Urine Bacteria - Diagnostic Findings Chest x-ray: image reviewed CT scan - chest: image reviewed Assessment and Plan Plan: Assessment 1 shock, likely a combination of septic and cardiogenic in nature. The decompensating fact that although seems to be septic and I'm suspicious that the patient may have an underlying urine checked infection . Alternative sources of infection cannot be completely excluded. The patient is currently hypotensive and pressor dependent. He was resuscitated IV fluids and clinically improved 2 hypotension secondary to above 3 severe lactic acidosis 4 advanced cardiomyopathy with an ejection fraction of less than 20% 5 chronic atrial fibrillation 6 Coumadin toxicity without evidence of any acute bleeding 7 acute kidney injury creatinine is up to 1.8 and the patient is oliguric secondary to above 8 history of alcoholism 9 small and chronic bilateral lower lobe pleural effusion related to heart failure 10 history of pancreatitis 11 troponin leak secondary to above Plan More this patient to the intensive care unit. Continued IV fluids with normal saline today to 100 mL an hour. Cover the patient with a combination of Levaquin and vancomycin. Urine cultures. Blood cultures. Keep pressors with 5 mics of norepinephrine infusion. Repeat lactic acid level levels. Repeated blood work. Give the patient 5 mg of vitamin K and repeat the PT/INR. Watch for any signs of fluid overload as the patient is being resuscitated IV fluids. We'll continue to follow.
[2016-07-09 15:52] LABS: CH 31.8; CHCM 30.9; HCT 40.6 % (39.0-53.0); HGB 12.5 gm/dL (13.0-17.5); Hypochromasia Moderate; MCH 31.7 pg (25.0-35.0); MCHC 30.7 g/dL (31.0-37.0); MCV 103.3 fL (80.0-100.0); Macrocytosis Slight; Mean Platelet Volume 9.6; RBC 3.93 m/uL (4.30-5.90); RDW 14.5 % (11.5-15.5); WBC 20.1 k/uL (3.8-10.6); WBC (Perox) 21.08
--- NOTE | 2016-07-09 15:53 | P.HPIM ---
History of Present Illness H&P Date: 07/09/16 Chief Complaint: Septic shock/urinary tract infection. 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 with a previous medical history significant for nonischemic cardiomyopathy post-AICD placement, under the care of cardiology clinic at the [facility], chronic atrial fibrillation, hyperlipidemia, pancreatic that is, history of gangrenous cholecystitis post lap-chip, patient was at the [facility] cardiology clinic about a few days ago I believe was for regular follow -up and he was felt at that time the patient was dehydrated , subsequently the patient was given 1 L of normal saline over 2 hours, the patient was released home, at about the same time patient started to feel sick with low-grade temperature associated with nausea and dry heaves, patient ended up coming to the ER because of that he was found to have a severe profound lactic acidosis with severe hypertension, his bicarb level was around 8 patient was complaining of significant diarrhea over the last few days prior to the admission to the hospital, patient did receive 3 L of normal saline, and he was placed on normal saline at 100 mL an hour he was given a dose of vancomycin as well as Levaquin, urine culture as well as blood culture were obtained, and patient was admitted to the intensive care unit, he was hypotensive started on Levophed at 5 mics per minute, Dr. Newman saw the patient and he was accepted to the intensive care unit. Review of Systems Constitutional: Reports anorexia, Reports fatigue, Reports fever, Reports malaise, Reports weakness, Reports weight loss Eyes: denies blurred vision, denies bulging eye, denies decreased vision, denies diplopia Ears: deny: decreased hearing Ears, nose, mouth and throat: Denies dental pain, Denies dysphagia, Denies neck lump, Denies sore throat Cardiovascular: Reports decreased exercise tolerance, Reports dyspnea on exertion, Reports irregular heart beat, Reports shortness of breath, Denies chest pain, Denies high blood pressure, Denies syncope Respiratory: Denies congestion, Denies cough, Denies cough with sputum, Denies home oxygen, Denies sleep apnea, Denies snoring, Denies wheezing Gastrointestinal: Reports change in bowel habits, Reports diarrhea, Reports excessive gas, Reports loss of appetite, Reports nausea, Denies abdominal pain, Denies bloating, Denies hematochezia, Denies indigestion, Denies melena, Denies vomiting Genitourinary: Reports dysuria, Reports nocturia, Reports testicular pain, Denies hematuria Musculoskeletal: Denies myalgias Musculoskeletal: absent: ankle pain, ankle stiffness, ankle swelling, elbow pain , elbow stiffness, elbow swelling, foot pain, foot stiffness, foot swelling, hand pain, hand stiffness, hand swelling, hip pain, hip stiffness, hip swelling , knee pain, knee stiffness, knee swelling, shoulder pain, shoulder stiffness, shoulder swelling, wrist pain, wrist stiffness, wrist swelling Integumentary: Denies pruritus, Denies rash Neurological: Denies numbness, Denies weakness Psychiatric: Denies anxiety, Denies depression Endocrine: Denies fatigue, Denies weight change Past Medical History Past Medical History: Atrial Fibrillation, Heart Failure, Hyperlipidemia, Osteoarthritis (OA), Pneumonia Additional Past Medical History / Comment(s): Pt diagnosed with cardiomyopathy end of 2007 and had episode of respiratory failure with intubation/ventilation. He is followed at the [facility]. Other hx: pericardial effusion. History of Any Multi-Drug Resistant Organisms: None Reported Past Surgical History: AICD, Cholecystectomy Additional Past Surgical History / Comment(s): 2009 AICD, cardiac cath 2016, vasectomy. Past Anesthesia/Blood Transfusion Reactions: No Reported Reaction Type of Cardiac Device: AICD Device Placement Date:: 2008 Past Psychological History: No Psychological Hx Reported Smoking Status: Current every day smoker (Patient smokes about 10 cigars every day and he started when he was 11-year-old.) Past Alcohol Use History: None Reported (Patient used to drink about 12-24 beers daily basis and he quit in 2007.) Additional Past Alcohol Use History / Comment(s): Pt started smoking in 1986 and is down to 10 cigarettes a day. He quit drinking in 2008. Past Drug Use History: None Reported - Past Family History Mother Family Medical History: Congestive Heart Failure (CHF) (Mother is 69-year-old has history of congestive heart failure so is his grandmother.) Father Family Medical History: Coronary Artery Disease (CAD) (Father 7-year-old with history of CAD post CABG with hyperlipidemia.), Hyperlipidemia Brother(s) Family Medical History: No Reported History, Musculoskeletal Disorder (Patient has 3 brothers one of them with lupus and other one with spinal stenosis third one is healthy) Sister(s) Family Medical History: No Reported History (Patient has one sister who is overweight.) Son(s) Family Medical History: No Reported History (Patient has 2 sons no major medical problems) Daughter(s) Family Medical History: No Reported History (One daughter no major medical problems) Medications and Allergies Home Medications Medication Instructions Recorded Confirmed Type Carvedilol [Coreg] 6.25 mg PO BID 07/25/15 07/09/16 History Lisinopril [Prinivil] 2.5 mg PO DAILY 07/25/15 07/09/16 History Warfarin [Coumadin] 10 mg PO MOWE 07/25/15 07/09/16 History Cetirizine HCl [Zyrtec] 10 mg PO DAILY 07/09/16 07/09/16 History Digoxin [Lanoxin] 125 mcg PO DAILY 07/09/16 07/09/16 History Warfarin [Coumadin] 7.5 mg PO SUTUTHFRSA 07/09/16 07/09/16 History Allergies Allergy/AdvReac Type Severity Reaction Status Date / Time codeine Allergy Unknown Dyspnea Verified 07/09/16 09:22 Penicillins Allergy Unknown Dyspnea Verified 07/09/16 09:22 Physical Exam Vitals: Vital Signs Temp Pulse Pulse Resp BP Pulse Ox 07/09/16 12:08 104 H 18 107/84 98 07/09/16 11:53 98 18 101/80 99 07/09/16 11:38 98.2 F 96 18 103/78 99 07/09/16 11:23 96 18 103/78 95 07/09/16 11:08 98 18 105/76 96 07/09/16 10:53 98 18 99/75 96 07/09/16 10:38 98 18 97/76 94 L 07/09/16 10:23 96 18 102/72 95 07/09/16 10:08 98.0 F 96 18 103/72 97 07/09/16 09:53 94 18 102/69 94 L 07/09/16 09:23 94 18 102/71 94 L 07/09/16 09:08 98.0 F 92 18 109/69 96 07/09/16 08:52 97 H 99/71 96 07/09/16 08:38 96 18 95/63 97 07/09/16 08:23 94 18 95/71 97 07/09/16 08:08 97.5 F L 92 18 96/71 99 07/09/16 07:53 94 18 94/67 96 07/09/16 07:38 92 18 100/68 100 07/09/16 07:23 98 18 98/67 100 07/09/16 07:09 94 18 83/64 100 07/09/16 06:38 97 20 95/65 97 07/09/16 06:23 98 20 96/68 94 L 07/09/16 06:07 97 20 103/70 97 07/09/16 05:53 95 20 95/62 95 07/09/16 05:47 97 20 97/57 98 07/09/16 05:23 93 20 93/72 96 07/09/16 05:08 97.4 F L 97 20 90/59 99 07/09/16 04:53 96 20 83/55 98 07/09/16 04:38 95 20 88/52 99 07/09/16 04:23 99 94/56 07/09/16 04:17 96 20 89/55 100 07/09/16 03:40 97.9 F 100 20 105/53 98 07/09/16 03:00 100 20 125/75 99 07/09/16 02:19 98.1 F 101 H 24 76/52 97 07/09/16 01:13 98.2 F 106 H 20 98/68 100 07/09/16 00:31 107 H 24 104/55 97 07/09/16 00:14 108 H 26 H 92/62 98 07/08/16 23:18 98.5 F 111 H 24 185/102 96 07/08/16 22:08 118 H 24 121/57 100 07/08/16 22:00 26 H 07/08/16 21:30 112 H 07/08/16 21:21 119 H 24 111/75 07/08/16 21:06 100.6 F H 123 H 24 82/54 Intake and Output 07/08/16 07/09/16 07/09/16 22:59 06:59 14:59 Output Total 200 Balance -200 Output: Urine 200 Other: Weight 66.678 kg - Constitutional General appearance: mild distress, thin - EENT Eyes: anicteric sclerae, EOMI, PERRLA, no ptosis, no scleral icterus, normal appearance ENT: hearing grossly normal, normal oropharynx, no thrush Ears: bilateral: normal - Neck Neck: no lymphadenopathy, normal ROM, no rigidity, no stridor, no thyromegaly Carotids: bilateral: upstroke normal Thyroid: bilateral: normal size - Respiratory Respiratory: bilateral: diminished, negative: dullness, rales, rhonchi, wheezing , prolonged expiration - Cardiovascular Rhythm: irregularly irregular Heart sounds: normal: S1, S2 Abnormal Heart Sounds: systolic murmur, no diastolic murmur, no rub, S3 Gallop, no click - Gastrointestinal General gastrointestinal: normal bowel sounds, soft, no splenomegaly, no tenderness, no umbilical hernia, no ventral hernia (Bilateral direct inguinal hernia) - Integumentary Integumentary: normal, normal turgor - Neurologic Neurologic: CNII-XII intact - Musculoskeletal Musculoskeletal: generalized weakness, strength equal bilaterally - Psychiatric Psychiatric: A&O x's 3, appropriate affect, intact judgment & insight Results CBC & Chem 7: 07/08/16 21:03 07/08/16 21:03 Labs: Abnormal Lab Results - Last 24 Hours (Table) 07/08/16 07/08/16 07/08/16 Range/Units 21:03 21:03 21:03 RBC 4.20 L (4.30-5.90) m/uL MCV 102.4 H (80.0-100.0) fL PT (9.0-12.0) sec INR (<1.1) D-Dimer 3.99 H (<0.60) mg/L FEU ABG pH (7.35-7.45) ABG pCO2 (35-45) mmHg ABG HCO3 (21-25) mmol/L ABG Total CO2 (19-24) mmol/L Sodium (137-145) mmol/L Carbon Dioxide (22-30) mmol/L BUN (9-20) mg/dL Creatinine (0.66-1.25) mg/dL Glucose (74-99) mg/dL POC Glucose (mg/dL) (75-99) mg/dL Plasma Lactic Acid Magdi (0.7-2.0) mmol/L Phosphorus (2.5-4.5) mg/dL Magnesium (1.6-2.3) mg/dL Total Bilirubin (0.2-1.3) mg/dL AST (17-59) U/L ALT (21-72) U/L Total Creatine Kinase 494 H (55-170) U/L CK-MB (CK-2) 5.0 H* (0.0-2.4) ng/mL Troponin I 0.079 H* (0.000-0.034) ng/mL Urine Protein (Negative) Urine Glucose (UA) (Negative) Urine Blood (Negative) Ur Leukocyte Esterase (Negative) Urine RBC (0-5) /hpf Urine WBC (0-5) /hpf Ur Squamous Epith Cells (0-4) /hpf Urine Bacteria (None) /hpf 07/08/16 07/08/16 07/08/16 Range/Units 21:03 21:03 21:03 RBC (4.30-5.90) m/uL MCV (80.0-100.0) fL PT 55.1 H (9.0-12.0) sec INR 5.5 H* (<1.1) D-Dimer (<0.60) mg/L FEU ABG pH (7.35-7.45) ABG pCO2 (35-45) mmHg ABG HCO3 (21-25) mmol/L ABG Total CO2 (19-24) mmol/L Sodium 133 L (137-145) mmol/L Carbon Dioxide 8 L* (22-30) mmol/L BUN 32 H (9-20) mg/dL Creatinine 1.80 H (0.66-1.25) mg/dL Glucose 59 L (74-99) mg/dL POC Glucose (mg/dL) (75-99) mg/dL Plasma Lactic Acid Magdi 13.6 H* (0.7-2.0) mmol/L Phosphorus 7.9 H (2.5-4.5) mg/dL Magnesium 2.4 H (1.6-2.3) mg/dL Total Bilirubin 7.2 H (0.2-1.3) mg/dL AST 578 H (17-59) U/L ALT 490 H (21-72) U/L Total Creatine Kinase (55-170) U/L CK-MB (CK-2) (0.0-2.4) ng/mL Troponin I (0.000-0.034) ng/mL Urine Protein (Negative) Urine Glucose (UA) (Negative) Urine Blood (Negative) Ur Leukocyte Esterase (Negative) Urine RBC (0-5) /hpf Urine WBC (0-5) /hpf Ur Squamous Epith Cells (0-4) /hpf Urine Bacteria (None) /hpf 07/08/16 07/08/16 07/09/16 Range/Units 21:04 23:21 01:10 RBC (4.30-5.90) m/uL MCV (80.0-100.0) fL PT (9.0-12.0) sec INR (<1.1) D-Dimer (<0.60) mg/L FEU ABG pH (7.35-7.45) ABG pCO2 (35-45) mmHg ABG HCO3 (21-25) mmol/L ABG Total CO2 (19-24) mmol/L Sodium (137-145) mmol/L Carbon Dioxide (22-30) mmol/L BUN (9-20) mg/dL Creatinine (0.66-1.25) mg/dL Glucose (74-99) mg/dL POC Glucose (mg/dL) 64 L 107 H (75-99) mg/dL Plasma Lactic Acid Magdi 14.4 H* (0.7-2.0) mmol/L Phosphorus (2.5-4.5) mg/dL Magnesium (1.6-2.3) mg/dL Total Bilirubin (0.2-1.3) mg/dL AST (17-59) U/L ALT (21-72) U/L Total Creatine Kinase (55-170) U/L CK-MB (CK-2) (0.0-2.4) ng/mL Troponin I (0.000-0.034) ng/mL Urine Protein (Negative) Urine Glucose (UA) (Negative) Urine Blood (Negative) Ur Leukocyte Esterase (Negative) Urine RBC (0-5) /hpf Urine WBC (0-5) /hpf Ur Squamous Epith Cells (0-4) /hpf Urine Bacteria (None) /hpf 07/09/16 07/09/16 07/09/16 Range/Units 02:15 02:40 02:54 RBC (4.30-5.90) m/uL MCV (80.0-100.0) fL PT (9.0-12.0) sec INR (<1.1) D-Dimer (<0.60) mg/L FEU ABG pH 7.13 L* (7.35-7.45) ABG pCO2 17 L* (35-45) mmHg ABG HCO3 5 L* (21-25) mmol/L ABG Total CO2 6 L (19-24) mmol/L Sodium (137-145) mmol/L Carbon Dioxide (22-30) mmol/L BUN (9-20) mg/dL Creatinine (0.66-1.25) mg/dL Glucose (74-99) mg/dL POC Glucose (mg/dL) (75-99) mg/dL Plasma Lactic Acid Magdi (0.7-2.0) mmol/L Phosphorus (2.5-4.5) mg/dL Magnesium (1.6-2.3) mg/dL Total Bilirubin (0.2-1.3) mg/dL AST (17-59) U/L ALT (21-72) U/L Total Creatine Kinase (55-170) U/L CK-MB (CK-2) (0.0-2.4) ng/mL Troponin I 0.108 H* (0.000-0.034) ng/mL Urine Protein 3+ H (Negative) Urine Glucose (UA) 1+ H (Negative) Urine Blood Large H (Negative) Ur Leukocyte Esterase Large H (Negative) Urine RBC >182 H (0-5) /hpf Urine WBC >182 H (0-5) /hpf Ur Squamous Epith Cells 9 H (0-4) /hpf Urine Bacteria Few H (None) /hpf 07/09/16 07/09/16 Range/Units 05:18 08:34 RBC (4.30-5.90) m/uL MCV (80.0-100.0) fL PT (9.0-12.0) sec INR (<1.1) D-Dimer (<0.60) mg/L FEU ABG pH (7.35-7.45) ABG pCO2 (35-45) mmHg ABG HCO3 (21-25) mmol/L ABG Total CO2 (19-24) mmol/L Sodium (137-145) mmol/L Carbon Dioxide (22-30) mmol/L BUN (9-20) mg/dL Creatinine (0.66-1.25) mg/dL Glucose (74-99) mg/dL POC Glucose (mg/dL) 126 H (75-99) mg/dL Plasma Lactic Acid Magdi 12.0 H* (0.7-2.0) mmol/L Phosphorus (2.5-4.5) mg/dL Magnesium (1.6-2.3) mg/dL Total Bilirubin (0.2-1.3) mg/dL AST (17-59) U/L ALT (21-72) U/L Total Creatine Kinase (55-170) U/L CK-MB (CK-2) (0.0-2.4) ng/mL Troponin I (0.000-0.034) ng/mL Urine Protein (Negative) Urine Glucose (UA) (Negative) Urine Blood (Negative) Ur Leukocyte Esterase (Negative) Urine RBC (0-5) /hpf Urine WBC (0-5) /hpf Ur Squamous Epith Cells (0-4) /hpf Urine Bacteria (None) /hpf Thrombosis Risk Factor Assmnt - DVT/VTE Prophylaxis DVT/VTE Prophylaxis: Pharmacologic Prophylaxis ordered, Mechanical Prophylaxis ordered - Choose All That Apply Any of the Below Risk Factors Present?: Yes Each Factor Represents 1 point: Age 41-60 years, Sepsis (< 1month) Other Risk Factors: No Other congenital or acquired thrombophilia - If yes, enter type in comment: No Thrombosis Risk Factor Assessment Total Risk Factor Score: 2 Thrombosis Risk Factor Assessment Level: Low Risk Assessment and Plan Plan: Assessment and plan: 1. Septic shock and possible cardiogenic shock. The likely source is urinary tract infection, continue IV fluid resuscitation with normal saline 100 mL an hour, vancomycin, Levaquin, norepinephrine, ICU consult, monitor the patient very closely, check stool for C. diff toxins a and B, monitor the patient for significant severe nonischemic cardiopathy. 2. Acute kidney injury with profound metabolic acidosis due to lactic acidosis. Continue IV fluid resuscitation, monitor CMP, lactic acid, monitor magnesium or phosphorus. 3. Coumadin toxicity. Monitor the patient PT and INR in the next 24 hours there is no obvious bleeding. 4. Severe lactic acidosis. Continue IV fluid resuscitation, continue norepinephrine drip, continue IV antibiotic, repeat lactic acid next 6 hours. 5. Severe nonischemic cardiomyopathy with mild troponin leak thought to be due to septic shock and demand ischemia. Monitor the patient very closely. 6. History of chronic pancreatitis in the past due to alcoholism. Patient had quit alcohol in 2007. 7. History of gangrenous cholecystitis post cholecystectomy. 8. Bilateral direct inguinal hernias. Day to follow-up with general surgery as an outpatient with the patient is better. 9. DVT prophylaxis. Bilateral knee-high JUDY hose and SCDs. 10. GI prophylaxis. Continue Pepcid 20 mg push every 12 hours. 11. Patient is full code. 12. Admit to inpatient. Estimate length of stay 2 midnights.
[2016-07-09 16:08] LABS: Add Differential Manual Differential; Calcium 7.2 mg/dL (8.4-10.2); Potassium 5.3 mmol/L (3.5-5.1); Total Bilirubin 6.4 mg/dL (0.2-1.3); Total Protein 5.3 g/dL (6.3-8.2)
[2016-07-09 16:09] LABS: Nucleated Red Blood Cells 0 /100 WBC (0-0); Polychromasia Present; Total Cells Counted 100
[2016-07-09] MEDS: MORPHINE SULFATE 4 MG/ML SYRINGE IV PRN (17:48)
[2016-07-09 18:11] LABS: Glucose,Whole Blood 167 mg/dL (75-99)
[2016-07-09] MEDS: VANCOMYCIN 1,000 MG in SODIUM CHLORIDE 0.9% 250 ML IVPB SCH (18:27)
[2016-07-09] MEDS: FUROSEMIDE 10 MG/ML 10 ML VIAL IV STA ×2 (19:55→19:57)
[2016-07-09] MEDS: NOREPINEPHRIN 16 MG-0.9%NS PMX 16 MG/250 ML ML IV SCH (19:57)
[2016-07-09] MEDS ORDERED: LEVOFLOXACIN 500MG-D5W PMX 500 MG in DEXTROSE/WATER 1 100ML.BAG IVPB SCH (21:00)
[2016-07-09 22:15] LABS: Basophils % (A) 0 %; CH 32.3; CHCM 31.8; Eosinophils # (A) 0.1 k/uL (0-0.7); Eosinophils % (A) 0 %; HCT 39.1 % (39.0-53.0); HDW 2.94; HGB 12.6 gm/dL (13.0-17.5); Hypochromasia Slight; Luc # (Auto) 0.14; Luc % (Auto) 1; Lymphocytes % (A) 5 %; MCHC 32.2 g/dL (31.0-37.0); MCV 102.4 fL (80.0-100.0); Macrocytosis Slight; Mean Platelet Volume 10.3; Monocytes # (A) 0.8 k/uL (0-1.0); Monocytes % (A) 4 %; Neutrophils % (A) 90 %; RBC 3.82 m/uL (4.30-5.90); RDW 14.5 % (11.5-15.5); WBC (Perox) 21.03
[2016-07-09 22:24] LABS: Calcium 6.6 mg/dL (8.4-10.2); Phosphorous 6.8 mg/dL (2.5-4.5); Potassium 5.5 mmol/L (3.5-5.1)
[2016-07-09 22:26] LABS: Partial Thromboplastin Time 39.8 sec (22.0-30.0)
[2016-07-09 22:35] LABS: Prothrombin Time 67.6 sec (9.0-12.0)
[2016-07-09 22:41] LABS: INR 6.6 (<1.1)
--- NOTE | 2016-07-09 23:50 | P.CONS ---
History of Present Illness - Reason for Consult Consult date: 07/09/16 - Chief Complaint Sepsis - History of Present Illness 44-year-old male who is medically disabled because of his cardiomyopathy is nonischemic type. He relates occurred after some type of infection years ago. Follows at the [facility] heart failure, cardiac support team. He relates this is an ongoing smoker has not been a candidate for any type of left ventricular assist device or transplant. He does have arrhythmia and has a AICD in place. Patient relates that he has markedly worsened his status over the last short period of time. Becoming much more short of breath and weak. He also developed nausea and emesis. At presentation evidence of hypotension, profound lactic acidosis. Potential urinary tract infection and pneumonia. As well as alteration of his renal status with acute renal failure. With resuscitation is improving but there is also concerns to elevated BNP and troponins. Markedly abnormal liver function tests were also noted. Infectious disease consultation for pneumonia. Review of Systems Patient feels very poorly. Weak tired and short of breath HEENT:Denies headache or acute visual change. Denies sinus or mouth discomforts. Denies neck stiffness or pain. Denies significant oral cavity pain. Denies difficulty on swallowing. Poor teeth Lungs: As per the HPI has shortness of breath cough without hemoptysis. He has chronic shortness of breath however Cardiovascular: Patient is noted is having shortness of breath. He has cough and orthopnea and dyspnea on exertion. He has some chronic chest pain is without change. Gastrointestinal:Denies nausea, vomiting, diarrhea, constipation, hematemesis, melena, hematochezia. No no significant change of bowel habit noticed. Musculoskeletal: denies significant myalgias or arthralgias. No new joint swelling. Chronic back pain. Skin is without new rash or breakdown Neuro: Denies headache or visual change. Denies any new onset weakness or difficulty with ambulation. Denies falls or seizures. Psychiatric: Anxiety and depression Endocrine: Chronic fatigue has been having weight loss. Past Medical History Past Medical History: Atrial Fibrillation, Heart Failure, Hyperlipidemia, Osteoarthritis (OA), Pneumonia Additional Past Medical History / Comment(s): Pt diagnosed with cardiomyopathy end of 2007 and had episode of respiratory failure with intubation/ventilation. He is followed at the [facility]. Other hx: pericardial effusion. History of Any Multi-Drug Resistant Organisms: None Reported Past Surgical History: AICD, Cholecystectomy Additional Past Surgical History / Comment(s): 2009 AICD, cardiac cath 2016, vasectomy. Past Anesthesia/Blood Transfusion Reactions: No Reported Reaction Type of Cardiac Device: AICD Device Placement Date:: 2008 Past Psychological History: No Psychological Hx Reported Additional Psychological History / Comment(s): Follows a [facility] there is not a candidate for LVAD or transplant because of his tobacco use did not relate to other drug use but is of concern. 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 No experience. Pet dog at home Smoking Status: Current every day smoker (Patient smokes about 10 cigars every day and he started when he was 11-year-old.) Past Alcohol Use History: None Reported (Patient used to drink about 12-24 beers daily basis and he quit in 2007.) Additional Past Alcohol Use History / Comment(s): Pt started smoking in 1986 and is down to 10 cigarettes a day. He quit drinking in 2008. Past Drug Use History: None Reported - Past Family History Mother Family Medical History: Congestive Heart Failure (CHF) (Mother is 69-year-old has history of congestive heart failure so is his grandmother.) Father Family Medical History: Coronary Artery Disease (CAD) (Father 7-year-old with history of CAD post CABG with hyperlipidemia.), Hyperlipidemia Brother(s) Family Medical History: No Reported History, Musculoskeletal Disorder (Patient has 3 brothers one of them with lupus and other one with spinal stenosis third one is healthy) Sister(s) Family Medical History: No Reported History (Patient has one sister who is overweight.) Son(s) Family Medical History: No Reported History (Patient has 2 sons no major medical problems) Daughter(s) Family Medical History: No Reported History (One daughter no major medical problems) Medications and Allergies Home Medications and Allergies Comment(s): Current Medications Acetaminophen (Tylenol Suppository) 650 mg RECTAL Q4HR PRN PRN Reason: Fever And/ Or Mild Pain Acetaminophen (Tylenol Tab) 650 mg PO Q4HR PRN PRN Reason: Fever and/or Mild Pain Hydrocodone Bitart/Acetaminophen ([place] 5-325) 1 each PO Q4HR PRN PRN Reason: Mild Pain scale 5 Docusate Sodium (Colace) 100 mg PO BID LENNIE Last Admin: 07/09/16 20:33 Dose: 100 mg Famotidine (Pepcid) 20 mg IV Q12HR [facility] Last Admin: 07/09/16 20:33 Dose: 20 mg Sodium Chloride (Saline 0.9%) 1,000 mls @ 100 mls/hr IV .Q10H [facility] Last Admin: 07/09/16 14:17 Dose: 100 mls/hr Vancomycin HCl 1,000 mg/ (Sodium Chloride) 250 mls @ 125 mls/hr IVPB Q16H [facility] Last Admin: 07/09/16 18:27 Dose: 125 mls/hr Levofloxacin 500 mg/ IV (Solution) 100 mls @ 100 mls/hr IVPB Q24H [facility] Last Admin: 07/09/16 22:06 Dose: 100 mls/hr Norepinephrine Bitartrate (Levophed-0.9% Nacl 16 Mg/250ml Pmx) 16 mg in 250 mls @ 0 mls/hr IV .Q0M LENNIE; Titrate PRN Reason: Protocol Last Admin: 07/09/16 19:57 Dose: 5 mcg/min, 4.688 mls/hr Miscellaneous Information (Rx Info: Iv Contrast Was Given) 1 each MISCELLANE DAILY PRN PRN Reason: Per Protocol Stop: 07/10/16 22:07 Last Admin: 07/09/16 00:22 Dose: 1 each Morphine Sulfate (Morphine Sulfate (Inj)) 3 mg IV Q2HR PRN PRN Reason: Pain Scale 6 to 7 Last Admin: 07/09/16 17:48 Dose: 3 mg Naloxone HCl (Narcan) 0.2 mg IV Q2M PRN PRN Reason: Opioid Reversal Home Medications Medication Instructions Recorded Confirmed Type Carvedilol [Coreg] 6.25 mg PO BID 07/25/15 07/09/16 History Lisinopril [Prinivil] 2.5 mg PO DAILY 07/25/15 07/09/16 History Warfarin [Coumadin] 10 mg PO MOWE 07/25/15 07/09/16 History Cetirizine HCl [Zyrtec] 10 mg PO DAILY 07/09/16 07/09/16 History Digoxin [Lanoxin] 125 mcg PO DAILY 07/09/16 07/09/16 History Warfarin [Coumadin] 7.5 mg PO SUTUTHFRSA 07/09/16 07/09/16 History Allergies Allergy/AdvReac Type Severity Reaction Status Date / Time codeine Allergy Unknown Dyspnea Verified 07/09/16 18:25 Penicillins Allergy Unknown Dyspnea Verified 07/09/16 18:25 Physical Exam Vitals: Vital Signs Temp Pulse Resp BP Pulse Ox 07/09/16 22:00 137 H 17 104/72 96 07/09/16 21:30 102 H 29 H 92/80 93 L 07/09/16 21:00 96.4 F L 100 19 87/54 94 L 17 20:30 103 H 19 101/51 93 L 1817 20:00 128 H 27 H 85/54 93 L 07/09/16 19:00 103 H 23 93 L 07/09/16 18:30 122 H 17 90/75 93 L 07/09/16 18:15 98.0 F 114 H 22 95/70 95 18/17 17:42 98.3 F 106 H 16 106/88 95 17 16:39 97.1 F L 106 H 16 92/70 93 L 07/09/16 15:53 108 H 18 112/83 96 1817 15:33 104 H 18 112/82 96 17 15:13 106 H 18 110/75 95 1817 14:53 102 H 18 85/64 94 L 1817 14:33 104 H 18 88/58 95 18/17 14:13 100 18 107/81 95 07/09/17 13:53 100 18 108/83 94 L 18/17 13:47 100 18 109/84 99 1817 13:45 98.5 F 17 13:38 100 18 108/83 94 L 18/17 13:23 104 H 18 107/76 94 L 1817 13:08 100 18 108/82 95 18/17 12:53 102 H 18 109/80 94 L 18/17 12:38 104 H 18 106/81 99 18/17 12:23 100 18 109/83 96 18/17 12:08 104 H 18 107/84 98 18/17 11:53 98 18 101/80 99 18/17 11:38 98.2 F 96 18 103/78 99 18/17 11:23 96 18 103/78 95 05/18/17 11:08 98 18 105/76 96 05/18/17 10:53 98 18 99/75 96 05/18/17 10:38 98 18 97/76 94 L 05/18/17 10:23 96 18 102/72 95 05/18/17 10:08 98.0 F 96 18 103/72 97 05/18/17 09:53 94 18 102/69 94 L 05/18/17 09:23 94 18 102/71 94 L 05/18/17 09:08 98.0 F 92 18 109/69 96 05/18/17 08:52 97 H 99/71 96 05/18/17 08:38 96 18 95/63 97 05/18/17 08:23 94 18 95/71 97 05/18/17 08:08 97.5 F L 92 18 96/71 99 05/18/17 07:53 94 18 94/67 96 05/18/17 07:38 92 18 100/68 100 05/18/17 07:23 98 18 98/67 100 0518/17 07:09 94 18 83/64 100 05/18/17 06:38 97 20 95/65 97 05/18/17 06:23 98 20 96/68 94 L 05/18/17 06:07 97 20 103/70 97 05/18/17 05:53 95 20 95/62 95 05/18/17 05:47 97 20 97/57 98 05/18/17 05:23 93 20 93/72 96 05/18/17 05:08 97.4 F L 97 20 90/59 99 05/18/17 04:53 96 20 83/55 98 05/18/17 04:38 95 20 88/52 99 05/18/17 04:23 99 94/56 05/18/17 04:17 96 20 89/55 100 05/18/17 03:40 97.9 F 100 20 105/53 98 05/18/17 03:00 100 20 125/75 99 05/18/17 02:19 98.1 F 101 H 24 76/52 97 05/18/17 01:13 98.2 F 106 H 20 98/68 100 05/18/17 00:31 107 H 24 104/55 97 05/18/17 00:14 108 H 26 H 92/62 98 Intake and Output 07/09/16 07/09/16 07/10/16 14:59 22:59 06:59 Intake Total 640 Output Total 200 550 Balance -200 90 Intake: Intake, IV Titration 400 Amount Sodium Chloride 0.9% 1, 400 000 ml @ 100 mls/hr IV . Q10H [facility] Rx#:[id number] Oral 240 Output: Urine 200 550 45-year-old male who looks much older than his stated age. He is a very thin nearly cachectic build. Poor hygiene. HEENT: Anicteric conjunctiva are pink and moist nasal mucosa grossly intact without significant lesions, there is no thrush. Very poor dentition but no thrush Neck: The neck is supple without significant lymphadenopathy or thyromegaly. Lungs: Symmetrical air entry with evidence of crackles throughout the lung olivas. Bibasilar crackles are heard. Heart: Irregular with an audible S1 and S2 positive S4 2/6 Tollett murmur left sternal border the radius to the axillas heard. PMI is nondisplaced. Abdomen: Positive bowel sounds soft and nontender without palpable masses or organomegaly. There was no guarding or rebound. Extremities: Extremities have some generalized edema. Lower extremities have 2 + edema. No open lesions are seen Neuro: Awake alert oriented to person place and time. There are no acute new gross focal sensory motor deficits. Results CBC & Chem 7: 07/09/16 22:00 07/09/16 22:00 Labs: Abnormal Lab Results - Last 24 Hours (Table) 07/08/16 07/09/16 07/09/16 Range/Units 21:04 01:10 02:15 WBC (3.8-10.6) k/uL RBC (4.30-5.90) m/uL Hgb (13.0-17.5) gm/dL MCV (80.0-100.0) fL MCHC (31.0-37.0) g/dL Plt Count (150-450) k/uL Neutrophils # (1.3-7.7) k/uL Neutrophils # (Manual) (1.3-7.7) k/uL PT (9.0-12.0) sec INR (<1.1) APTT (22.0-30.0) sec ABG pH (7.35-7.45) ABG pCO2 (35-45) mmHg ABG HCO3 (21-25) mmol/L ABG Total CO2 (19-24) mmol/L Sodium (137-145) mmol/L Potassium (3.5-5.1) mmol/L Carbon Dioxide (22-30) mmol/L BUN (9-20) mg/dL Creatinine (0.66-1.25) mg/dL Glucose (74-99) mg/dL POC Glucose (mg/dL) 64 L (75-99) mg/dL Plasma Lactic Acid Madgi 14.4 H* (0.7-2.0) mmol/L Calcium (8.4-10.2) mg/dL Phosphorus (2.5-4.5) mg/dL Total Bilirubin (0.2-1.3) mg/dL AST (17-59) U/L ALT (21-72) U/L Troponin I (0.000-0.034) ng/mL Total Protein (6.3-8.2) g/dL Albumin (3.5-5.0) g/dL Urine Protein 3+ H (Negative) Urine Glucose (UA) 1+ H (Negative) Urine Blood Large H (Negative) Ur Leukocyte Esterase Large H (Negative) Urine RBC >182 H (0-5) /hpf Urine WBC >182 H (0-5) /hpf Ur Squamous Epith Cells 9 H (0-4) /hpf Urine Bacteria Few H (None) /hpf 07/09/16 07/09/16 07/09/16 Range/Units 02:40 02:54 05:18 WBC (3.8-10.6) k/uL RBC (4.30-5.90) m/uL Hgb (13.0-17.5) gm/dL MCV (80.0-100.0) fL MCHC (31.0-37.0) g/dL Plt Count (150-450) k/uL Neutrophils # (1.3-7.7) k/uL Neutrophils # (Manual) (1.3-7.7) k/uL PT (9.0-12.0) sec INR (<1.1) APTT (22.0-30.0) sec ABG pH 7.13 L* (7.35-7.45) ABG pCO2 17 L* (35-45) mmHg ABG HCO3 5 L* (21-25) mmol/L ABG Total CO2 6 L (19-24) mmol/L Sodium (137-145) mmol/L Potassium (3.5-5.1) mmol/L Carbon Dioxide (22-30) mmol/L BUN (9-20) mg/dL Creatinine (0.66-1.25) mg/dL Glucose (74-99) mg/dL POC Glucose (mg/dL) (75-99) mg/dL Plasma Lactic Acid Magdi 12.0 H* (0.7-2.0) mmol/L Calcium (8.4-10.2) mg/dL Phosphorus (2.5-4.5) mg/dL Total Bilirubin (0.2-1.3) mg/dL AST (17-59) U/L ALT (21-72) U/L Troponin I 0.108 H* (0.000-0.034) ng/mL Total Protein (6.3-8.2) g/dL Albumin (3.5-5.0) g/dL Urine Protein (Negative) Urine Glucose (UA) (Negative) Urine Blood (Negative) Ur Leukocyte Esterase (Negative) Urine RBC (0-5) /hpf Urine WBC (0-5) /hpf Ur Squamous Epith Cells (0-4) /hpf Urine Bacteria (None) /hpf 07/09/16 07/09/16 07/09/16 Range/Units 08:34 15:17 15:17 WBC 20.1 H (3.8-10.6) k/uL RBC 3.93 L (4.30-5.90) m/uL Hgb 12.5 L (13.0-17.5) gm/dL MCV 103.3 H (80.0-100.0) fL MCHC 30.7 L (31.0-37.0) g/dL Plt Count 82 L D (150-450) k/uL Neutrophils # (1.3-7.7) k/uL Neutrophils # (Manual) 18.1 H (1.3-7.7) k/uL PT (9.0-12.0) sec INR (<1.1) APTT (22.0-30.0) sec ABG pH (7.35-7.45) ABG pCO2 (35-45) mmHg ABG HCO3 (21-25) mmol/L ABG Total CO2 (19-24) mmol/L Sodium 126 L (137-145) mmol/L Potassium 5.3 H (3.5-5.1) mmol/L Carbon Dioxide 9 L* (22-30) mmol/L BUN 36 H (9-20) mg/dL Creatinine 2.00 H (0.66-1.25) mg/dL Glucose 201 H (74-99) mg/dL POC Glucose (mg/dL) 126 H (75-99) mg/dL Plasma Lactic Acid Magdi (0.7-2.0) mmol/L Calcium 7.2 L (8.4-10.2) mg/dL Phosphorus (2.5-4.5) mg/dL Total Bilirubin 6.4 H (0.2-1.3) mg/dL AST 5863 H (17-59) U/L ALT 3512 H (21-72) U/L Troponin I (0.000-0.034) ng/mL Total Protein 5.3 L (6.3-8.2) g/dL Albumin 3.0 L (3.5-5.0) g/dL Urine Protein (Negative) Urine Glucose (UA) (Negative) Urine Blood (Negative) Ur Leukocyte Esterase (Negative) Urine RBC (0-5) /hpf Urine WBC (0-5) /hpf Ur Squamous Epith Cells (0-4) /hpf Urine Bacteria (None) /hpf 07/09/16 07/09/16 07/09/16 Range/Units 15:17 18:08 22:00 WBC (3.8-10.6) k/uL RBC (4.30-5.90) m/uL Hgb (13.0-17.5) gm/dL MCV (80.0-100.0) fL MCHC (31.0-37.0) g/dL Plt Count (150-450) k/uL Neutrophils # (1.3-7.7) k/uL Neutrophils # (Manual) (1.3-7.7) k/uL PT (9.0-12.0) sec INR (<1.1) APTT (22.0-30.0) sec ABG pH (7.35-7.45) ABG pCO2 (35-45) mmHg ABG HCO3 (21-25) mmol/L ABG Total CO2 (19-24) mmol/L Sodium 125 L (137-145) mmol/L Potassium 5.5 H (3.5-5.1) mmol/L Carbon Dioxide 11 L (22-30) mmol/L BUN 37 H (9-20) mg/dL Creatinine 2.25 H (0.66-1.25) mg/dL Glucose 124 H (74-99) mg/dL POC Glucose (mg/dL) 167 H (75-99) mg/dL Plasma Lactic Acid Magdi 5.4 H* (0.7-2.0) mmol/L Calcium 6.6 L (8.4-10.2) mg/dL Phosphorus 6.8 H (2.5-4.5) mg/dL Total Bilirubin (0.2-1.3) mg/dL AST (17-59) U/L ALT (21-72) U/L Troponin I (0.000-0.034) ng/mL Total Protein (6.3-8.2) g/dL Albumin (3.5-5.0) g/dL Urine Protein (Negative) Urine Glucose (UA) (Negative) Urine Blood (Negative) Ur Leukocyte Esterase (Negative) Urine RBC (0-5) /hpf Urine WBC (0-5) /hpf Ur Squamous Epith Cells (0-4) /hpf Urine Bacteria (None) /hpf 07/09/16 07/09/16 07/09/16 Range/Units 22:00 22:00 22:00 WBC 20.0 H (3.8-10.6) k/uL RBC 3.82 L (4.30-5.90) m/uL Hgb 12.6 L (13.0-17.5) gm/dL MCV 102.4 H (80.0-100.0) fL MCHC (31.0-37.0) g/dL Plt Count 85 L (150-450) k/uL Neutrophils # 18.0 H (1.3-7.7) k/uL Neutrophils # (Manual) (1.3-7.7) k/uL PT 67.6 H (9.0-12.0) sec INR 6.6 H* (<1.1) APTT 39.8 H (22.0-30.0) sec ABG pH (7.35-7.45) ABG pCO2 (35-45) mmHg ABG HCO3 (21-25) mmol/L ABG Total CO2 (19-24) mmol/L Sodium (137-145) mmol/L Potassium (3.5-5.1) mmol/L Carbon Dioxide (22-30) mmol/L BUN (9-20) mg/dL Creatinine (0.66-1.25) mg/dL Glucose (74-99) mg/dL POC Glucose (mg/dL) (75-99) mg/dL Plasma Lactic Acid Magdi 4.8 H* (0.7-2.0) mmol/L Calcium (8.4-10.2) mg/dL Phosphorus (2.5-4.5) mg/dL Total Bilirubin (0.2-1.3) mg/dL AST (17-59) U/L ALT (21-72) U/L Troponin I (0.000-0.034) ng/mL Total Protein (6.3-8.2) g/dL Albumin (3.5-5.0) g/dL Urine Protein (Negative) Urine Glucose (UA) (Negative) Urine Blood (Negative) Ur Leukocyte Esterase (Negative) Urine RBC (0-5) /hpf Urine WBC (0-5) /hpf Ur Squamous Epith Cells (0-4) /hpf Urine Bacteria (None) /hpf Microbiology - Last 24 Hours (Table) 07/08/16 21:03 Blood Culture - Preliminary Blood No Growth after 24 hours 07/09/16 02:15 Urine Culture - Preliminary Urine,Voided Laboratory Results WBC 20.0 k/uL (3.8-10.6) H 07/09/16 22:00 RBC 3.82 m/uL (4.30-5.90) L 07/09/16 22:00 Hgb 12.6 gm/dL (13.0-17.5) L 07/09/16 22:00 Hct 39.1 % (39.0-53.0) 07/09/16 22:00 MCV 102.4 fL (80.0-100.0) H 07/09/16 22:00 MCH 33.0 pg (25.0-35.0) 07/09/16 22:00 MCHC 32.2 g/dL (31.0-37.0) 07/09/16 22:00 RDW 14.5 % (11.5-15.5) 07/09/16 22:00 Plt Count 85 k/uL (150-450) L 07/09/16 22:00 Neutrophils % 90 % 07/09/16 22:00 Neutrophils % (Manual) 90.0 % 07/09/16 15:17 Lymphocytes % 5 % 07/09/16 22:00 Lymphocytes % (Manual) 5.0 % 07/09/16 15:17 Monocytes % 4 % 07/09/16 22:00 Monocytes % (Manual) 5.0 % 07/09/16 15:17 Eosinophils % 0 % 07/09/16 22:00 Basophils % 0 % 07/09/16 22:00 Neutrophils # 18.0 k/uL (1.3-7.7) H 07/09/16 22:00 Neutrophils # (Manual) 18.1 k/uL (1.3-7.7) H 07/09/16 15:17 Lymphocytes # 1.0 k/uL (1.0-4.8) 07/09/16 22:00 Lymphocytes # (Manual) 1.0 k/uL (1.0-4.8) 07/09/16 15:17 Monocytes # 0.8 k/uL (0-1.0) 07/09/16 22:00 Monocytes # (Manual) 1.0 k/uL (0-1.0) 07/09/16 15:17 Eosinophils # 0.1 k/uL (0-0.7) 07/09/16 22:00 Basophils # 0.0 k/uL (0-0.2) 07/09/16 22:00 Nucleated RBCs 0 /100 WBC (0-0) 07/09/16 15:17 Polychromasia Present 07/09/16 15:17 Hypochromasia Slight 07/09/16 22:00 Macrocytosis Slight 07/09/16 22:00 PT 67.6 sec (9.0-12.0) H 07/09/16 22:00 INR 6.6 (<1.1) H* 07/09/16 22:00 APTT 39.8 sec (22.0-30.0) H 07/09/16 22:00 D-Dimer 3.99 mg/L FEU (<0.60) H 07/08/16 21:03 Sample Site [facility] 07/09/16 02:40 ABG pH 7.13 (7.35-7.45) L* 07/09/16 02:40 ABG pCO2 17 mmHg (35-45) L* 07/09/16 02:40 ABG pO2 108 mmHg (83-108) 07/09/16 02:40 ABG HCO3 5 mmol/L (21-25) L* 07/09/16 02:40 ABG Total CO2 6 mmol/L (19-24) L 07/09/16 02:40 ABG O2 Saturation 96.0 % (94-97) 07/09/16 02:40 ABG Base Excess -22.3 mmol/L 07/09/16 02:40 FiO2 32 % 07/09/16 02:40 Sodium 125 mmol/L (137-145) L 07/09/16 22:00 Potassium 5.5 mmol/L (3.5-5.1) H 07/09/16 22:00 Chloride 99 mmol/L (98-107) 07/09/16 22:00 Carbon Dioxide 11 mmol/L (22-30) L 07/09/16 22:00 Anion Gap 15 mmol/L 07/09/16 22:00 BUN 37 mg/dL (9-20) H 07/09/16 22:00 Creatinine 2.25 mg/dL (0.66-1.25) H 07/09/16 22:00 Est GFR (MDRD) Af Amer 38 (>60 ml/min/1.73 sqM) 07/09/16 22:00 Est GFR (MDRD) Non-Af 31 (>60 ml/min/1.73 sqM) 07/09/16 22:00 Glucose 124 mg/dL (74-99) H 07/09/16 22:00 POC Glucose (mg/dL) 167 mg/dL (75-99) H 07/09/16 18:08 POC Glu [employer] Teacher ID [place], [place] 07/09/16 18:08 Plasma Lactic Acid Magdi 4.8 mmol/L (0.7-2.0) H* 07/09/16 22:00 Calcium 6.6 mg/dL (8.4-10.2) L 07/09/16 22:00 Phosphorus 6.8 mg/dL (2.5-4.5) H 07/09/16 22:00 Magnesium 2.4 mg/dL (1.6-2.3) H 07/08/16 21:03 Total Bilirubin 6.4 mg/dL (0.2-1.3) H 07/09/16 15:17 AST 5863 U/L (17-59) H 07/09/16 15:17 ALT 3512 U/L (21-72) H 07/09/16 15:17 Alkaline Phosphatase 77 U/L (38-126) 07/09/16 15:17 Total Creatine Kinase 494 U/L (55-170) H 07/08/16 21:03 CK-MB (CK-2) 5.0 ng/mL (0.0-2.4) H* 07/08/16 21:03 CK-MB (CK-2) Rel Index 1.0 07/08/16 21:03 Troponin I 0.108 ng/mL (0.000-0.034) H* 07/09/16 02:54 NT-Pro-B Natriuret Pep 75871 pg/mL 07/08/16 21:03 Total Protein 5.3 g/dL (6.3-8.2) L 07/09/16 15:17 Albumin 3.0 g/dL (3.5-5.0) L 07/09/16 15:17 Amylase 42 U/L (30-110) 07/08/16 21:03 Lipase 145 U/L (23-300) 07/08/16 21:03 Urine Color Dark Red 07/09/16 02:15 Urine Appearance Turbid (Clear) 07/09/16 02:15 Urine pH 6.5 (5.0-8.0) 07/09/16 02:15 Ur Specific [place] 1.024 (1.001-1.035) 07/09/16 02:15 Urine Protein 3+ (Negative) H 07/09/16 02:15 Urine Glucose (UA) 1+ (Negative) H 07/09/16 02:15 Urine Ketones Negative (Negative) 07/09/16 02:15 Urine Blood Large (Negative) H 07/09/16 02:15 Urine Nitrite Negative (Negative) 07/09/16 02:15 Urine Bilirubin Negative (Negative) 07/09/16 02:15 Urine Urobilinogen <2.0 mg/dL (<2.0) 07/09/16 02:15 Ur Leukocyte Esterase Large (Negative) H 07/09/16 02:15 Urine RBC >182 /hpf (0-5) H 07/09/16 02:15 Urine WBC >182 /hpf (0-5) H 07/09/16 02:15 Ur Squamous Epith Cells 9 /hpf (0-4) H 07/09/16 02:15 Urine Bacteria Few /hpf (None) H 07/09/16 02:15 Digoxin 0.5 ng/mL 07/08/16 22:00 Serum Alcohol <10 mg/dL 07/08/16 22:00 Blood Type B Positive 07/08/16 21:03 Blood Type Recheck B Pos 07/08/16 21:03 Antibody Screen NEGATIVE 07/08/16 21:03 Spec Expiration Date 07/11/2016 - 230207/08/16 21:03 Microbiology 07/08/16 21:03 Blood Blood Culture - Preliminary No Growth after 24 hours 07/09/16 02:15 Urine,Voided Urine Culture - Preliminary Assessment and Plan (1) Severe sepsis Narrative/Plan: 45-year-old male presents to hospital with profound weakness. Has a known history of nonischemic cardiomyopathy. At presentation there is evidence of potential congestive heart failure. Concerns for significant pneumonia with sepsis. Profound lactic acidosis with hypoperfusion. Evidence of potential cardiac injury, renal insufficiency as well as acute hepatic injury are all noted. Perfusion is improved at this point in time is being followed by pulmonary critical care. Concerns to sepsis and is on antibiotic therapy with Levaquin and vancomycin. Cultures are in process. Patient is improved. Acute hepatitis panel was requested because of the markedly abnormal liver function tests. Blood and sputum cultures are process. Lactic acidosis is a 14 is now improved to 4.8. INR markedly elevated. Prognosis is poor. Status: Acute (2) Nonischemic cardiomyopathy Status: Acute (3) Lactic acidosis Status: Acute (4) Hepatitis Status: Acute
[2016-07-10] MEDS: SODIUM CHLORIDE 0.9% 1,000 ML IV SCH ×2 (00:31→09:52)
[2016-07-10 00:39] LABS: Magnesium 1.7 mg/dL (1.6-2.3)
[2016-07-10 00:46] LABS: Prealbumin 7 mg/dL (18-36)
[2016-07-10 04:06] LABS: Hepatitis B Surface Ag Index 0.04
[2016-07-10 04:12] LABS: Hepatitis B Core IgM Index 0.02
[2016-07-10 04:24] LABS: Hepatitis C Virus IgG Index 0.02
[2016-07-10 05:32] LABS: ABG PCO2 20 mmHg (35-45); ABG PH 7.26 (7.35-7.45)
[2016-07-10 05:33] LABS: ABG Base Excess -17.1 mmol/L; ABG HCO3 9 mmol/L (21-25); ABG PO2 82 mmHg (83-108); ABG TCO2 9 mmol/L (19-24)
[2016-07-10 06:08] LABS: Calcium 7.3 mg/dL (8.4-10.2); Magnesium 1.8 mg/dL (1.6-2.3); Potassium 5.9 mmol/L (3.5-5.1); Total Bilirubin 6.8 mg/dL (0.2-1.3); Total Protein 5.6 g/dL (6.3-8.2)
[2016-07-10 06:10] LABS: CH 32.3; CHCM 32.7; HCT 37.8 % (39.0-53.0); HDW 3.21; HGB 12.9 gm/dL (13.0-17.5); MCHC 34.2 g/dL (31.0-37.0); MCV 99.4 fL (80.0-100.0); Macrocytosis Slight; Mean Platelet Volume 9.9; RBC 3.81 m/uL (4.30-5.90); RDW 14.5 % (11.5-15.5); WBC (Perox) 23.22
[2016-07-10 06:16] LABS: Prothrombin Time 68.3 sec (9.0-12.0)
[2016-07-10] MEDS ORDERED: Magnesium Replacement Protocol 1 EACH MISC MISCELLANE PRN (06:30)
[2016-07-10] MEDS: MAGNESIUM SULFATE-D5W PMX 1 GM in DEXTROSE/WATER 1 100ML.BAG IVPB SCH ×2 (06:56→08:35)
[2016-07-10 07:11] LABS: INR 6.7 (<1.1)
[2016-07-10 07:28] LABS: WBC 25.5 k/uL (3.8-10.6)
--- NOTE | 2016-07-10 08:28 | XR ---
EXAMINATION TYPE: XR chest 1V DATE OF EXAM: 07/10/2016 6:42 AM COMPARISON: 07/08/2016 INDICATION: Short of breath TECHNIQUE: Single frontal view of the chest is obtained. FINDINGS: The heart size is enlarged. The pulmonary vasculature is normal. Right lower lobe infiltrate is present. Correlate for pneumonia. Retrocardiac infiltrate may be present. There is silhouetting the left diaphragm. Pacemaker overlies left chest. IMPRESSION: 1. Right lower lobe infiltrate. Correlate for pneumonia. 2. Cardiomegaly
[2016-07-10] MEDS: FAMOTIDINE 20 MG/2 ML VIAL IV SCH (08:35)
[2016-07-10] MEDS: DOCUSATE 100 MG CAP PO SCH ×2 (08:35→20:29)
[2016-07-10] MEDS: VANCOMYCIN 1,000 MG in SODIUM CHLORIDE 0.9% 250 ML IVPB SCH (08:35)
[2016-07-10 08:36] LABS: Add Differential Manual Differential
[2016-07-10 08:39] LABS: Nucleated Red Blood Cells 0 /100 WBC (0-0); Total Cells Counted 200
[2016-07-10 08:40] LABS: Polychromasia Present
[2016-07-10] MEDS ORDERED: ONDANSETRON 4 MG/2 ML VIAL IVP PRN (09:01)
[2016-07-10] MEDS ORDERED: SODIUM POLYSTYRENE SULFONATE 15 GM/60 ML BOTTLE PO STA (09:18)
[2016-07-10] MEDS: MEROPENEM 1 GM in SODIUM CHLORIDE 0.9% 100 ML IVPB SCH ×2 (09:52→20:29)
[2016-07-10] MEDS: MORPHINE SULFATE 4 MG/ML SYRINGE IV PRN ×2 (10:12→23:11)
[2016-07-10] MEDS ORDERED: INSULIN REGULAR 100 UNIT/ML VIAL IV ONE (11:40)
[2016-07-10] MEDS ORDERED: DEXTROSE 50%-WATER 50 ML SYRINGE IVP STA (11:47)
--- NOTE | 2016-07-10 12:01 | ECHOF ---
Referral Reason:chf MEASUREMENTS -------- HEIGHT: 185.4 cm WEIGHT: 78.9 kg BP: 97/78 RVIDd: 4.0 cm (< 3.3) IVSd: 1.0 cm (0.6 - 1.1) LVIDd: 7.8 cm (3.9 - 5.3) LVPWd: 1.3 cm (0.6 - 1.1) IVSs: 1.3 cm LVIDs: 7.0 cm LVPWs: 1.4 cm LA Diam: 6.2 cm (2.7 - 3.8) LAESV Index (A-L): 115.07 ml/m Ao Diam: 4.2 cm (2.0 - 3.7) AV Cusp: 3.0 cm (1.5 - 2.6) MV EXCURSION: 18.438 mm (> 18.000) MV EF SLOPE: 144 mm/s (70 - 150) EPSS: 2.6 cm MV E Beltran: 1.63 m/s MV DecT: 78 ms MV A Beltran: 0.48 m/s MV E/A Ratio: 3.37 AR PHT: 554 ms RAP: 15.00 mmHg RVSP: 61.93 mmHg FINDINGS -------- This was a technically excellent study. The left ventricle is severely dilated. There is borderline concentric left ventricular hypertrophy. Overall left ventricular systolic function is severely impaired with, an EF between 20 - 25 %. The right ventricle is severely enlarged. LA is severely dilated >40 ml/m2 The right atrium is mildly enlarged. The aortic valve is trileaflet and appears structurally normal. There is mild aortic regurgitation. Severe mitral regurgitation is present. Severe tricuspid regurgitation present. There is severe pulmonary hypertension. The right ventricular systolic pressure, as measured by Doppler, is 61.93mmHg. Moderate pulmonic regurgitation. The aortic root is dilated measuring 4.2cm. The inferior vena cava is dilated with no significant inspiratory collapse which is consistent estimated right atrial pressure of >15 mmHg. The pericardium is normal. CONCLUSIONS -------- 1. This was a technically excellent study. 2. Severe mitral regurgitation is present. 3. Severe tricuspid regurgitation present. 4. There is severe pulmonary hypertension. 5. The right ventricular systolic pressure, as measured by Doppler, is 61.93mmHg. 6. Moderate pulmonic regurgitation. 7. The aortic root is dilated measuring 4.2cm. 8. The inferior vena cava is dilated with no significant inspiratory collapse which is consistent estimated right atrial pressure of >15 mmHg. 9. The pericardium is normal. 10. The left ventricle is severely dilated. 11. There is borderline concentric left ventricular hypertrophy. 12. Overall left ventricular systolic function is severely impaired with, an EF between 20 - 25 %. 13. The right ventricle is severely enlarged. 14. LA is severely dilated >40 ml/m2 15. The right atrium is mildly enlarged. 16. The aortic valve is trileaflet and appears structurally normal. 17. There is mild aortic regurgitation. PERIANESTHESIA RN: Makayla Carney RDCS
[2016-07-10] MEDS: DEXTROSE 5% IN WATER 1,000 ML with SODIUM BICARB (1 MEQ/ML) 150 ML IV SCH (12:10)
[2016-07-10 14:04] LABS: Glucose,Whole Blood 188 mg/dL (75-99)
--- NOTE | 2016-07-10 14:49 | PN ---
Mr. 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 Mayorga. He came here a feeling very dizzy and lightheaded and was found to be hypertensive. He was treated with IV fluids. He continues to have sinus tachycardia, which gets worse when he moves around. He denied any chest discomfort. He is lying comfortably in bed at this time. On examination, his blood pressure is 114/88 mmHg, pulse rate in the 107 beats a minute. Head and neck examination is normal. Heart sounds S1, S2 are normal, he has an ICD in place. Extremities are warm, no edema. IMPRESSION: 1. Alcoholic cardiomyopathy. 2. Severe congestive heart failure. 3. Hypertension, possibly a combination of sepsis and dehydration during sinus tachycardia. I have just checked TSH level and add low-dose beta blockers and follow up with physician at [facility]. Please call as needed.
[2016-07-10 15:09] LABS: Hepatitis C Virus IgG Ab Negative (Negative)
--- NOTE | 2016-07-10 15:10 | P.PN ---
Subjective This is a 45-year-old male one of Dr. Medrano with a previous medical history significant for nonischemic cardiomyopathy post-AICD placement, under the care of cardiology clinic at the [facility], chronic atrial fibrillation, hyperlipidemia, pancreatic that is, history of gangrenous cholecystitis post lap-chip, patient was at the [facility] cardiology clinic about a few days ago I believe was for regular follow -up and he was felt at that time the patient was dehydrated , subsequently the patient was given 1 L of normal saline over 2 hours, the patient was released home, at about the same time patient started to feel sick with low-grade temperature associated with nausea and dry heaves, patient ended up coming to the ER because of that he was found to have a severe profound lactic acidosis with severe hypertension, his bicarb level was around 8 patient was complaining of significant diarrhea over the last few days prior to the admission to the hospital, patient did receive 3 L of normal saline, and he was placed on normal saline at 100 mL an hour he was given a dose of vancomycin as well as Levaquin, urine culture as well as blood culture were obtained, and patient was admitted to the intensive care unit, he was hypotensive started on Levophed at 5 mics per minute, Dr. Newman saw the patient and he was accepted to the intensive care unit. 07/10: WBC is increased to 25.5 and platelet count currently at 86. INR is at 6.7 and he is status post vitamin K 5 mg 2 doses. The third dose of vitamin K has been ordered today. Electrolytes are worsened with sodium of 123, potassium 5.9. CO2 is 10. BUN 40 creatinine 2.4 which has increased and consult added for Dr. Monte. Liver function tests are all higher today. Pre- albumin was 7. His hepatitis panel was negative. He continues to be hypotensive and is on levo fed at 8 g. Zofran has been added for nausea. Regarding thrombocytopenia, Pepcid has been changed to Protonix and Dr. Paz is changed Zosyn to meropenem. Objective - Vital Signs Vital signs: Vital Signs Temp 96.5 F L 07/10/16 08:00 Pulse 98 07/10/16 08:30 Resp 27 H 07/10/16 08:30 BP 97/78 07/10/16 08:30 Pulse Ox 94 L 07/10/16 08:30 Intake & Output 07/09/16 07/10/16 07/10/16 18:59 06:59 18:59 Intake Total 100 2343.985 460 Output Total 600 660 55 Balance -500 1683.985 405 Weight 79.1 kg Intake: Intake, IV Titration 100 1343.985 300 Amount Magnesium Sulfate-D5w Pmx 100 1 gm In Dextrose/Water 1 100ml.bag @ 100 mls/hr IVPB Q1H LENNIE Rx#: [id number] Norepinephrin 16 mg-0.9% 93.985 Ns Pmx 16 mg In 250 ml @ Titrate IV .Q0M LENNIE Rx#: [id number] Phytonadione 5 mg In 50 Sodium Chloride 0.9% 50 ml @ 100 mls/hr IVPB ONCE STA Rx#:[id number] Sodium Chloride 0.9% 1, 100 1200 200 000 ml @ 100 mls/hr IV . Q10H LENNIE Rx#:[id number] Oral 1000 160 Output: Urine 600 660 55 Other: Voiding Method Indwelling Catheter # Bowel Movements 0 - Exam General appearance: mild distress, thin - EENT Eyes: anicteric sclerae, EOMI, PERRLA, no ptosis, no scleral icterus, normal appearance ENT: hearing grossly normal, normal oropharynx, no thrush Ears: bilateral: normal - Neck Neck: no lymphadenopathy, normal ROM, no rigidity, no stridor, no thyromegaly Carotids: bilateral: upstroke normal Thyroid: bilateral: normal size - Respiratory Respiratory: bilateral: diminished, negative: dullness, rales, rhonchi, wheezing , prolonged expiration - Cardiovascular Rhythm: irregularly irregular Heart sounds: normal: S1, S2 Abnormal Heart Sounds: systolic murmur, no diastolic murmur, no rub, S3 Gallop, no click - Gastrointestinal General gastrointestinal: normal bowel sounds, soft, no splenomegaly, no tenderness, no umbilical hernia, no ventral hernia (Bilateral direct inguinal hernia) - Integumentary Integumentary: normal, normal turgor - Neurologic Neurologic: CNII-XII intact - Musculoskeletal Musculoskeletal: generalized weakness, strength equal bilaterally - Psychiatric Psychiatric: A&O x's 3, appropriate affect, intact judgment & insight - Labs CBC & Chem 7: 07/10/16 05:30 07/10/16 05:30 Labs: Abnormal Lab Results - Last 24 Hours (Table) 07/09/16 07/09/16 07/09/16 Range/Units 15:17 15:17 15:17 WBC 20.1 H (3.8-10.6) k/uL RBC 3.93 L (4.30-5.90) m/uL Hgb 12.5 L (13.0-17.5) gm/dL Hct (39.0-53.0) % MCV 103.3 H (80.0-100.0) fL MCHC 30.7 L (31.0-37.0) g/dL Plt Count 82 L D (150-450) k/uL Neutrophils # (1.3-7.7) k/uL Neutrophils # (Manual) 18.1 H (1.3-7.7) k/uL Lymphocytes # (Manual) (1.0-4.8) k/uL PT (9.0-12.0) sec INR (<1.1) APTT (22.0-30.0) sec ABG pH (7.35-7.45) ABG pCO2 (35-45) mmHg ABG pO2 (83-108) mmHg ABG HCO3 (21-25) mmol/L ABG Total CO2 (19-24) mmol/L Sodium 126 L (137-145) mmol/L Potassium 5.3 H (3.5-5.1) mmol/L Carbon Dioxide 9 L* (22-30) mmol/L BUN 36 H (9-20) mg/dL Creatinine 2.00 H (0.66-1.25) mg/dL Glucose 201 H (74-99) mg/dL POC Glucose (mg/dL) (75-99) mg/dL Plasma Lactic Acid Magdi 5.4 H* (0.7-2.0) mmol/L Calcium 7.2 L (8.4-10.2) mg/dL Phosphorus (2.5-4.5) mg/dL Total Bilirubin 6.4 H (0.2-1.3) mg/dL AST 5863 H (17-59) U/L ALT 3512 H (21-72) U/L Total Protein 5.3 L (6.3-8.2) g/dL Albumin 3.0 L (3.5-5.0) g/dL Prealbumin (18-36) mg/dL 07/09/16 07/09/16 07/09/16 Range/Units 18:08 22:00 22:00 WBC 20.0 H (3.8-10.6) k/uL RBC 3.82 L (4.30-5.90) m/uL Hgb 12.6 L (13.0-17.5) gm/dL Hct (39.0-53.0) % MCV 102.4 H (80.0-100.0) fL MCHC (31.0-37.0) g/dL Plt Count 85 L (150-450) k/uL Neutrophils # 18.0 H (1.3-7.7) k/uL Neutrophils # (Manual) (1.3-7.7) k/uL Lymphocytes # (Manual) (1.0-4.8) k/uL PT (9.0-12.0) sec INR (<1.1) APTT (22.0-30.0) sec ABG pH (7.35-7.45) ABG pCO2 (35-45) mmHg ABG pO2 (83-108) mmHg ABG HCO3 (21-25) mmol/L ABG Total CO2 (19-24) mmol/L Sodium 125 L (137-145) mmol/L Potassium 5.5 H (3.5-5.1) mmol/L Carbon Dioxide 11 L (22-30) mmol/L BUN 37 H (9-20) mg/dL Creatinine 2.25 H (0.66-1.25) mg/dL Glucose 124 H (74-99) mg/dL POC Glucose (mg/dL) 167 H (75-99) mg/dL Plasma Lactic Acid Magdi (0.7-2.0) mmol/L Calcium 6.6 L (8.4-10.2) mg/dL Phosphorus 6.8 H (2.5-4.5) mg/dL Total Bilirubin (0.2-1.3) mg/dL AST (17-59) U/L ALT (21-72) U/L Total Protein (6.3-8.2) g/dL Albumin (3.5-5.0) g/dL Prealbumin (18-36) mg/dL 07/09/16 07/09/16 07/10/16 Range/Units 22:00 22:00 00:15 WBC (3.8-10.6) k/uL RBC (4.30-5.90) m/uL Hgb (13.0-17.5) gm/dL Hct (39.0-53.0) % MCV (80.0-100.0) fL MCHC (31.0-37.0) g/dL Plt Count (150-450) k/uL Neutrophils # (1.3-7.7) k/uL Neutrophils # (Manual) (1.3-7.7) k/uL Lymphocytes # (Manual) (1.0-4.8) k/uL PT 67.6 H (9.0-12.0) sec INR 6.6 H* (<1.1) APTT 39.8 H (22.0-30.0) sec ABG pH (7.35-7.45) ABG pCO2 (35-45) mmHg ABG pO2 (83-108) mmHg ABG HCO3 (21-25) mmol/L ABG Total CO2 (19-24) mmol/L Sodium (137-145) mmol/L Potassium (3.5-5.1) mmol/L Carbon Dioxide (22-30) mmol/L BUN (9-20) mg/dL Creatinine (0.66-1.25) mg/dL Glucose (74-99) mg/dL POC Glucose (mg/dL) (75-99) mg/dL Plasma Lactic Acid Magdi 4.8 H* (0.7-2.0) mmol/L Calcium (8.4-10.2) mg/dL Phosphorus (2.5-4.5) mg/dL Total Bilirubin (0.2-1.3) mg/dL AST (17-59) U/L ALT (21-72) U/L Total Protein (6.3-8.2) g/dL Albumin (3.5-5.0) g/dL Prealbumin 7 L (18-36) mg/dL 07/10/16 07/10/16 07/10/16 Range/Units 05:15 05:30 05:30 WBC 25.5 H* (3.8-10.6) k/uL RBC 3.81 L (4.30-5.90) m/uL Hgb 12.9 L (13.0-17.5) gm/dL Hct 37.8 L (39.0-53.0) % MCV (80.0-100.0) fL MCHC (31.0-37.0) g/dL Plt Count 86 L (150-450) k/uL Neutrophils # (1.3-7.7) k/uL Neutrophils # (Manual) 23.7 H (1.3-7.7) k/uL Lymphocytes # (Manual) 0.9 L (1.0-4.8) k/uL PT (9.0-12.0) sec INR (<1.1) APTT (22.0-30.0) sec ABG pH 7.26 L (7.35-7.45) ABG pCO2 20 L* (35-45) mmHg ABG pO2 82 L (83-108) mmHg ABG HCO3 9 L* (21-25) mmol/L ABG Total CO2 9 L (19-24) mmol/L Sodium 123 L (137-145) mmol/L Potassium 5.9 H (3.5-5.1) mmol/L Carbon Dioxide 10 L* (22-30) mmol/L BUN 40 H (9-20) mg/dL Creatinine 2.40 H (0.66-1.25) mg/dL Glucose (74-99) mg/dL POC Glucose (mg/dL) (75-99) mg/dL Plasma Lactic Acid Magdi (0.7-2.0) mmol/L Calcium 7.3 L (8.4-10.2) mg/dL Phosphorus 7.0 H (2.5-4.5) mg/dL Total Bilirubin 6.8 H (0.2-1.3) mg/dL AST 6171 H (17-59) U/L ALT 4472 H (21-72) U/L Total Protein 5.6 L (6.3-8.2) g/dL Albumin 3.2 L (3.5-5.0) g/dL Prealbumin (18-36) mg/dL 07/10/16 Range/Units 05:30 WBC (3.8-10.6) k/uL RBC (4.30-5.90) m/uL Hgb (13.0-17.5) gm/dL Hct (39.0-53.0) % MCV (80.0-100.0) fL MCHC (31.0-37.0) g/dL Plt Count (150-450) k/uL Neutrophils # (1.3-7.7) k/uL Neutrophils # (Manual) (1.3-7.7) k/uL Lymphocytes # (Manual) (1.0-4.8) k/uL PT 68.3 H (9.0-12.0) sec INR 6.7 H* (<1.1) APTT (22.0-30.0) sec ABG pH (7.35-7.45) ABG pCO2 (35-45) mmHg ABG pO2 (83-108) mmHg ABG HCO3 (21-25) mmol/L ABG Total CO2 (19-24) mmol/L Sodium (137-145) mmol/L Potassium (3.5-5.1) mmol/L Carbon Dioxide (22-30) mmol/L BUN (9-20) mg/dL Creatinine (0.66-1.25) mg/dL Glucose (74-99) mg/dL POC Glucose (mg/dL) (75-99) mg/dL Plasma Lactic Acid Magdi (0.7-2.0) mmol/L Calcium (8.4-10.2) mg/dL Phosphorus (2.5-4.5) mg/dL Total Bilirubin (0.2-1.3) mg/dL AST (17-59) U/L ALT (21-72) U/L Total Protein (6.3-8.2) g/dL Albumin (3.5-5.0) g/dL Prealbumin (18-36) mg/dL Microbiology - Last 24 Hours (Table) 07/08/16 21:03 Blood Culture - Preliminary Blood No Growth after 24 hours 07/09/16 02:15 Urine Culture - Preliminary Urine,Voided Assessment and Plan Plan: 1. Septic shock and possible cardiogenic shock and multiorgan failure with acute kidney injury, shock liver. The likely source is urinary tract infection , continue IV fluid resuscitation with normal saline 100 mL an hour, vancomycin , meropenem, norepinephrine, ICU consult, monitor the patient very closely, check stool for C. diff toxins a and B, monitor the patient for significant severe nonischemic cardiopathy. 2. Acute kidney injury with profound metabolic acidosis due to lactic acidosis. Continue IV fluid resuscitation, monitor CMP, lactic acid, monitor magnesium or phosphorus. Consult with nephrology 3. Hypercoagulopathy secondary to Coumadin toxicity and sepsis. Monitor the patient PT and INR in the next 24 hours there is no obvious bleeding. Vitamin K. 4. Severe lactic acidosis. Continue IV fluid resuscitation, continue norepinephrine drip, continue IV antibiotic, repeat lactic acid next 6 hours. 5. Severe nonischemic cardiomyopathy with mild troponin leak thought to be due to septic shock and demand ischemia. Monitor the patient very closely. 6. History of chronic pancreatitis in the past due to alcoholism. Patient had quit alcohol in 2007. 7. History of gangrenous cholecystitis post cholecystectomy. 8. Bilateral direct inguinal hernias. Day to follow-up with general surgery as an outpatient with the patient is better. 9. DVT prophylaxis. Bilateral knee-high JUDY hose and SCDs. 10. GI prophylaxis. Continue Pepcid 20 mg push every 12 hours. 11. Thrombocytopenia secondary to sepsis. Pepcid changed to Protonix, Zosyn changed to meropenem. Continue to monitor. Prognosis guarded Impression and plan of care have been directed as dictated by the signing physician. Pamela Lynn nurse practitioner acting as scribe for signing physician.
--- NOTE | 2016-07-10 15:16 | P.PN ---
Subjective 44-year-old male patient, advanced cardiomyopathy of a nonischemic type, in addition to a previous history of chronic atrial fibrillation, alcoholism, pancreatitis, who has an AICD in place, and he is being followed up by cardiology at [facility]. The patient was last seen at [facility] few days ago. The patient has a routine appointment artery was felt to be hypotensive and dehydrated. He was given IV fluids for about 2 hours and then he was released home. Subsequently, the patient had become again short of breath and he was having dry heaves and for that reason he came into the hospital where he was found to have significant abnormalities. The patient was found to be hypotensive. At the same time was found to have severe metabolic acidosis of a anion gap type and this was essentially lactic acidosis. Urine was cloudy and 30 and a Alfonso catheter was inserted and the urinalysis quite abnormal. In addition, the patient had been Coumadin toxic and he was in acute kidney failure with a creatinine of 1.8. Overnight, the patient was given IV fluids. He received IV fluid, triple-lumen catheter was inserted and the patient was started on pressors for hypotension currently the patient's blood pressure is stable on 5 mics of levo fed for blood pressure support. Troponins were mildly positive with 0.07 and 0.1 respectively 2, proBNP level was markedly elevated at 56,000, blood gases showed severe metabolic acidosis and the CAT scan of the chest showed COPD with small better pleural effusions and there was evidence of any pulmonary embolism. The CAT scan of the abdomen and pelvis also showed small volume of abdominal ascites and the patient had hepatomegaly and evidence of right-sided heart failure. The patient was seen and evaluated this morning. He is doing well. He is alert and awake. His urine output remains low. No nausea. No vomiting. No change in mental status. No chest pain. No shortness of breath. He feels much better and improved compared to yesterday. No hemoptysis. No pleurisy. No other complaints otherwise. On 07/10/2016 the patient is still doing poorly. As mentioned earlier he is in shock and this is likely a combination of septic and cardiogenic shock. The patient developed some leukocytosis and currently is on a combination of Merrem and vancomycin as broad-spectrum antibiotic coverage. I do suspect an underlying urine checked infection with secondary septicemia. Meanwhile, the patient got resuscitated IV fluids and currently is on normal saline at the rate of 100 mL an hour and his urine output is somewhat between 25-30 mL an hour. He has developed an acute kidney injury and also an acute shock liver. Her creatinine is up to 2.2 with a potassium level of 5.9 and underlying metabolic acidosis. Also, the patient is significantly elevated liver function tests secondary to shock liver. Lactic acid levels remain elevated for the reasons mentioned above. The patient also developed coagulopathy which as mentioned could be multifactorial. He was given a total of 5 mg of vitamin K another 10 mg of vitamin K was given. His most recent blood gas show a pH of 7.26 with a pCO2 of 20 and pO2 of 82. Sodium level is down to 123. He has an anion gap metabolic acidosis. Creatinine is up to 2.4 as mentioned. And the patient is a bit uncomfortable and looks to be quite lethargic in bed. Objective - Vital Signs Vital signs: Vital Signs Temp 97.5 F L 07/10/16 12:00 Pulse 107 H 07/10/16 13:30 Resp 24 07/10/16 13:30 BP 114/88 07/10/16 13:30 Pulse Ox 94 L 07/10/16 08:30 Intake & Output 07/09/16 07/10/16 07/10/16 18:59 06:59 18:59 Intake Total 100 2343.985 1310 Output Total 600 660 255 Balance -500 2350.217 2372 Weight 79.1 kg 79.1 kg Intake: Intake, IV Titration 100 2438.684 2849 Amount Magnesium Sulfate-D5w Pmx 200 1 gm In Dextrose/Water 1 100ml.bag @ 100 mls/hr IVPB Q1H LENNIE Rx#: [id number] Meropenem 1 gm In Sodium 100 Chloride 0.9% 100 ml @ 200 mls/hr IVPB Q12HR LENNIE Rx#:[id number] Norepinephrin 16 mg-0.9% 93.985 Ns Pmx 16 mg In 250 ml @ Titrate IV .Q0M LENNIE Rx#: [id number] Phytonadione 5 mg In 50 Sodium Chloride 0.9% 50 ml @ 100 mls/hr IVPB ONCE STA Rx#:[id number] Sodium Chloride 0.9% 1, 100 1200 600 000 ml @ 100 mls/hr IV . Q10H LENNIE Rx#:[id number] Vancomycin 1,000 mg In 250 Sodium Chloride 0.9% 250 ml @ 125 mls/hr IVPB Q16H LENNIE Rx#:[id number] Oral 1000 160 Output: Urine 600 660 255 Other: Voiding Method Indwelling Catheter Indwelling Catheter # Bowel Movements 0 - Exam Thin and frail nonacute distress communicating awake and alert.Head exam was generally normal. There was no scleral icterus or corneal arcus. Mucous membranes were moist. Examination of the neck shows some mild JVDs no goiter or neck masses. No thrush no oral lesions. Mucous members are dry. Lung sounds are diminished in lung bases bilaterally otherwise there is no crackles wheezes or rhonchi. Pacemaker pocket condition over the left anterior chest which is currently intact. Heart sounds are tachycardic pulses +2. No significant murmurs appreciated. Abdomen is slightly distended soft. No direct tenderness rebound tensile guarding. Extremities show diminished pulses in the dorsalis pedis and the posterior tibialis. The feet are cold. Diminished pulses in the popliteal area. No cyanosis. No clubbing. Neurologically the patient is awake and alert. - Labs CBC & Chem 7: 07/10/16 05:30 07/10/16 05:30 Labs: Abnormal Lab Results - Last 24 Hours (Table) 07/09/16 07/09/16 07/09/16 Range/Units 15:17 15:17 15:17 WBC 20.1 H (3.8-10.6) k/uL RBC 3.93 L (4.30-5.90) m/uL Hgb 12.5 L (13.0-17.5) gm/dL Hct (39.0-53.0) % MCV 103.3 H (80.0-100.0) fL MCHC 30.7 L (31.0-37.0) g/dL Plt Count 82 L D (150-450) k/uL Neutrophils # (1.3-7.7) k/uL Neutrophils # (Manual) 18.1 H (1.3-7.7) k/uL Lymphocytes # (Manual) (1.0-4.8) k/uL PT (9.0-12.0) sec INR (<1.1) APTT (22.0-30.0) sec ABG pH (7.35-7.45) ABG pCO2 (35-45) mmHg ABG pO2 (83-108) mmHg ABG HCO3 (21-25) mmol/L ABG Total CO2 (19-24) mmol/L Sodium 126 L (137-145) mmol/L Potassium 5.3 H (3.5-5.1) mmol/L Carbon Dioxide 9 L* (22-30) mmol/L BUN 36 H (9-20) mg/dL Creatinine 2.00 H (0.66-1.25) mg/dL Glucose 201 H (74-99) mg/dL POC Glucose (mg/dL) (75-99) mg/dL Plasma Lactic Acid Magdi 5.4 H* (0.7-2.0) mmol/L Calcium 7.2 L (8.4-10.2) mg/dL Phosphorus (2.5-4.5) mg/dL Total Bilirubin 6.4 H (0.2-1.3) mg/dL AST 5863 H (17-59) U/L ALT 3512 H (21-72) U/L Total Protein 5.3 L (6.3-8.2) g/dL Albumin 3.0 L (3.5-5.0) g/dL Prealbumin (18-36) mg/dL 07/09/16 07/09/16 07/09/16 Range/Units 18:08 22:00 22:00 WBC 20.0 H (3.8-10.6) k/uL RBC 3.82 L (4.30-5.90) m/uL Hgb 12.6 L (13.0-17.5) gm/dL Hct (39.0-53.0) % MCV 102.4 H (80.0-100.0) fL MCHC (31.0-37.0) g/dL Plt Count 85 L (150-450) k/uL Neutrophils # 18.0 H (1.3-7.7) k/uL Neutrophils # (Manual) (1.3-7.7) k/uL Lymphocytes # (Manual) (1.0-4.8) k/uL PT (9.0-12.0) sec INR (<1.1) APTT (22.0-30.0) sec ABG pH (7.35-7.45) ABG pCO2 (35-45) mmHg ABG pO2 (83-108) mmHg ABG HCO3 (21-25) mmol/L ABG Total CO2 (19-24) mmol/L Sodium 125 L (137-145) mmol/L Potassium 5.5 H (3.5-5.1) mmol/L Carbon Dioxide 11 L (22-30) mmol/L BUN 37 H (9-20) mg/dL Creatinine 2.25 H (0.66-1.25) mg/dL Glucose 124 H (74-99) mg/dL POC Glucose (mg/dL) 167 H (75-99) mg/dL Plasma Lactic Acid Magdi (0.7-2.0) mmol/L Calcium 6.6 L (8.4-10.2) mg/dL Phosphorus 6.8 H (2.5-4.5) mg/dL Total Bilirubin (0.2-1.3) mg/dL AST (17-59) U/L ALT (21-72) U/L Total Protein (6.3-8.2) g/dL Albumin (3.5-5.0) g/dL Prealbumin (18-36) mg/dL 07/09/16 07/09/16 07/10/16 Range/Units 22:00 22:00 00:15 WBC (3.8-10.6) k/uL RBC (4.30-5.90) m/uL Hgb (13.0-17.5) gm/dL Hct (39.0-53.0) % MCV (80.0-100.0) fL MCHC (31.0-37.0) g/dL Plt Count (150-450) k/uL Neutrophils # (1.3-7.7) k/uL Neutrophils # (Manual) (1.3-7.7) k/uL Lymphocytes # (Manual) (1.0-4.8) k/uL PT 67.6 H (9.0-12.0) sec INR 6.6 H* (<1.1) APTT 39.8 H (22.0-30.0) sec ABG pH (7.35-7.45) ABG pCO2 (35-45) mmHg ABG pO2 (83-108) mmHg ABG HCO3 (21-25) mmol/L ABG Total CO2 (19-24) mmol/L Sodium (137-145) mmol/L Potassium (3.5-5.1) mmol/L Carbon Dioxide (22-30) mmol/L BUN (9-20) mg/dL Creatinine (0.66-1.25) mg/dL Glucose (74-99) mg/dL POC Glucose (mg/dL) (75-99) mg/dL Plasma Lactic Acid Magdi 4.8 H* (0.7-2.0) mmol/L Calcium (8.4-10.2) mg/dL Phosphorus (2.5-4.5) mg/dL Total Bilirubin (0.2-1.3) mg/dL AST (17-59) U/L ALT (21-72) U/L Total Protein (6.3-8.2) g/dL Albumin (3.5-5.0) g/dL Prealbumin 7 L (18-36) mg/dL 07/10/16 07/10/16 07/10/16 Range/Units 05:15 05:30 05:30 WBC 25.5 H* (3.8-10.6) k/uL RBC 3.81 L (4.30-5.90) m/uL Hgb 12.9 L (13.0-17.5) gm/dL Hct 37.8 L (39.0-53.0) % MCV (80.0-100.0) fL MCHC (31.0-37.0) g/dL Plt Count 86 L (150-450) k/uL Neutrophils # (1.3-7.7) k/uL Neutrophils # (Manual) 23.7 H (1.3-7.7) k/uL Lymphocytes # (Manual) 0.9 L (1.0-4.8) k/uL PT (9.0-12.0) sec INR (<1.1) APTT (22.0-30.0) sec ABG pH 7.26 L (7.35-7.45) ABG pCO2 20 L* (35-45) mmHg ABG pO2 82 L (83-108) mmHg ABG HCO3 9 L* (21-25) mmol/L ABG Total CO2 9 L (19-24) mmol/L Sodium 123 L (137-145) mmol/L Potassium 5.9 H (3.5-5.1) mmol/L Carbon Dioxide 10 L* (22-30) mmol/L BUN 40 H (9-20) mg/dL Creatinine 2.40 H (0.66-1.25) mg/dL Glucose (74-99) mg/dL POC Glucose (mg/dL) (75-99) mg/dL Plasma Lactic Acid Magdi (0.7-2.0) mmol/L Calcium 7.3 L (8.4-10.2) mg/dL Phosphorus 7.0 H (2.5-4.5) mg/dL Total Bilirubin 6.8 H (0.2-1.3) mg/dL AST 6171 H (17-59) U/L ALT 4472 H (21-72) U/L Total Protein 5.6 L (6.3-8.2) g/dL Albumin 3.2 L (3.5-5.0) g/dL Prealbumin (18-36) mg/dL 07/10/16 07/10/16 Range/Units 05:30 14:01 WBC (3.8-10.6) k/uL RBC (4.30-5.90) m/uL Hgb (13.0-17.5) gm/dL Hct (39.0-53.0) % MCV (80.0-100.0) fL MCHC (31.0-37.0) g/dL Plt Count (150-450) k/uL Neutrophils # (1.3-7.7) k/uL Neutrophils # (Manual) (1.3-7.7) k/uL Lymphocytes # (Manual) (1.0-4.8) k/uL PT 68.3 H (9.0-12.0) sec INR 6.7 H* (<1.1) APTT (22.0-30.0) sec ABG pH (7.35-7.45) ABG pCO2 (35-45) mmHg ABG pO2 (83-108) mmHg ABG HCO3 (21-25) mmol/L ABG Total CO2 (19-24) mmol/L Sodium (137-145) mmol/L Potassium (3.5-5.1) mmol/L Carbon Dioxide (22-30) mmol/L BUN (9-20) mg/dL Creatinine (0.66-1.25) mg/dL Glucose (74-99) mg/dL POC Glucose (mg/dL) 188 H (75-99) mg/dL Plasma Lactic Acid Magdi (0.7-2.0) mmol/L Calcium (8.4-10.2) mg/dL Phosphorus (2.5-4.5) mg/dL Total Bilirubin (0.2-1.3) mg/dL AST (17-59) U/L ALT (21-72) U/L Total Protein (6.3-8.2) g/dL Albumin (3.5-5.0) g/dL Prealbumin (18-36) mg/dL Microbiology - Last 24 Hours (Table) 07/09/16 02:15 Urine Culture - Final Urine,Voided 07/08/16 21:03 Blood Culture - Preliminary Blood No Growth after 24 hours Assessment and Plan Plan: Assessment 1 shock, likely a combination of septic and cardiogenic in nature. The decompensating fact that although seems to be septic and I'm suspicious that the patient may have an underlying urine checked infection . Alternative sources of infection cannot be completely excluded. The patient is currently hypotensive and pressor dependent. 2 hypotension secondary to above, currently pressor dependent 3 severe lactic acidosis and mom most likely secondary to sepsis/hypoperfusion 4 advanced cardiomyopathy with an ejection fraction of less than 20% 5 chronic atrial fibrillation 6 Coumadin toxicity without evidence of any acute bleeding. The coagulopathy that was observed could be also be related to an underlying DIC/shock liver 7 acute kidney injury creatinine 8 history of alcoholism 9 small and chronic bilateral lower lobe pleural effusion related to heart failure 10 history of pancreatitis 11 troponin leak secondary to above 12 anion gap metabolic acidosis 13 hyperlipidemia 14 it was I ptosis Plan Unfortunately, the patient is doing poorly. The patient has advanced CAD a myopathy with an ejection fraction of 20-25%, evidence of biventricular failure , evidence of severe mitral regurgitation and moderate degree of pulmonary hypertension. At the same time the patient is septic and hypoperfusing and she is an acute kidney injury and acute liver injury. As such, the patient has evidence of multisystem organ failure which carries a very high mortality risk. We'll continue the fluid resuscitation. Continue antibiotics. 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 Consult ID. Consult nephrology. The patient was given a dose of Lasix yesterday which had modest improvement in his urine output. We'll continue to follow. The patient will be kept in ICU. His coagulation profile. Consider fresh frozen plasma if the coagulopathy gets worse. Awaiting repeat labs. Reviewed her evaluation more than 30 minutes. Time with Patient: Greater than 30
[2016-07-10 18:08] LABS: Potassium 5.2 mmol/L (3.5-5.1)
[2016-07-10] MEDS: SODIUM CHLORIDE 3%(HYPERTONIC) 500 ML IV SCH (19:16)
[2016-07-10 22:49] LABS: Glucose,Whole Blood 127 mg/dL (75-99)
--- NOTE | 2016-07-10 23:29 | P.PN ---
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 He relates occurred after some type of infection years ago. Follows at the [facility] heart failure, cardiac support team. He relates this is an ongoing smoker has not been a candidate for any type of left ventricular assist device or transplant. He does have arrhythmia and has a AICD in place. Patient relates that he has markedly worsened his status over the last short period of time. Becoming much more short of breath and weak. He also developed nausea and emesis. At presentation evidence of hypotension, profound lactic acidosis. Potential urinary tract infection and pneumonia. As well as alteration of his renal status with acute renal failure. With resuscitation is improving but there is also concerns to elevated BNP and troponins. Markedly abnormal liver function tests were also noted. There is been a mild improvement of his acidosis. However continues to have evidence of hepatic failure, acute renal failure, and hypotension. He is regaining ability of an appetite and is able to drink some protein supplement. He is denying nausea or emesis. Does feel very weak overall. Objective - Vital Signs Vital signs: Vital Signs Temp 96.3 F L 07/10/16 20:00 Pulse 107 H 07/10/16 23:00 Resp 26 H 07/10/16 23:23 BP 107/85 07/10/16 23:00 Pulse Ox 96 07/10/16 23:00 Intake & Output 07/10/16 07/10/16 07/11/16 06:59 18:59 06:59 Intake Total 2343.985 1810 600 Output Total 660 455 700 Balance 1589.948 2822 -100 Weight 79.1 kg 79.1 kg Intake: IV 200 Dextrose 5% in Water 1, 200 000 ml @ 100 mls/hr IV . [id number] LENNIE with Sodium Bicarb (1 Meq/ml) 150 ml Rx#:[id number] Intake, IV Titration 9851.083 9634 400 Amount Dextrose 5% in Water 1, 500 100 000 ml @ 100 mls/hr IV . [id number] LENNIE with Sodium Bicarb (1 Meq/ml) 150 ml Rx#:[id number] Magnesium Sulfate-D5w Pmx 200 1 gm In Dextrose/Water 1 100ml.bag @ 100 mls/hr IVPB Q1H LENNIE Rx#: [id number] Meropenem 1 gm In Sodium 100 100 Chloride 0.9% 100 ml @ 200 mls/hr IVPB Q12HR [facility] Rx#:[id number] Norepinephrin 16 mg-0.9% 93.985 Ns Pmx 16 mg In 250 ml @ Titrate IV .Q0M [facility] Rx#: [id number] Phytonadione 5 mg In 50 Sodium Chloride 0.9% 50 ml @ 100 mls/hr IVPB ONCE STA Rx#:[id number] Sodium Chloride 0.9% 1, 1200 600 000 ml @ 100 mls/hr IV . Q10H [facility] Rx#:[id number] Sodium Chloride 3%( 200 Hypertonic) 500 ml @ 50 mls/hr IV .Q10H [facility] Rx#: [id number] Vancomycin 1,000 mg In 250 Sodium Chloride 0.9% 250 ml @ 125 mls/hr IVPB Q16H [facility] Rx#:[id number] Oral 1000 160 Output: Urine 660 455 700 Other: Voiding Method Indwelling Catheter Indwelling Catheter Indwelling Catheter # Bowel Movements 0 - Exam 45-year-old male who looks much older than his stated age. He is a very thin nearly cachectic build. Poor hygiene. HEENT:icteric ,conjunctiva are pink and moist nasal mucosa grossly intact without significant lesions, there is no thrush. Very poor dentition but no thrush Neck: The neck is supple without significant lymphadenopathy or thyromegaly. Lungs: Symmetrical air entry with evidence of crackles throughout the lung olivas. Bibasilar crackles are heard. Heart: Irregular with an audible S1 and S2 positive S4 2/6 Tollett murmur left sternal border the radius to the axillas heard. PMI is nondisplaced. Abdomen: Positive bowel sounds soft and nontender without palpable masses or organomegaly. There was no guarding or rebound. Extremities: Extremities have some generalized edema. Lower extremities have 2 + edema. No open lesions are seen Neuro: Awake alert oriented to person place and time. There are no acute new gross focal sensory motor deficits. - Labs CBC & Chem 7: 07/10/16 05:30 07/10/16 17:35 Labs: Abnormal Lab Results - Last 24 Hours (Table) 07/10/16 07/10/16 07/10/16 Range/Units 00:15 05:15 05:30 WBC 25.5 H* (3.8-10.6) k/uL RBC 3.81 L (4.30-5.90) m/uL Hgb 12.9 L (13.0-17.5) gm/dL Hct 37.8 L (39.0-53.0) % Plt Count 86 L (150-450) k/uL Neutrophils # (Manual) 23.7 H (1.3-7.7) k/uL Lymphocytes # (Manual) 0.9 L (1.0-4.8) k/uL PT (9.0-12.0) sec INR (<1.1) ABG pH 7.26 L (7.35-7.45) ABG pCO2 20 L* (35-45) mmHg ABG pO2 82 L (83-108) mmHg ABG HCO3 9 L* (21-25) mmol/L ABG Total CO2 9 L (19-24) mmol/L Sodium (137-145) mmol/L Potassium (3.5-5.1) mmol/L Chloride (98-107) mmol/L Carbon Dioxide (22-30) mmol/L BUN (9-20) mg/dL Creatinine (0.66-1.25) mg/dL POC Glucose (mg/dL) (75-99) mg/dL Calcium (8.4-10.2) mg/dL Phosphorus (2.5-4.5) mg/dL Total Bilirubin (0.2-1.3) mg/dL AST (17-59) U/L ALT (21-72) U/L Total Protein (6.3-8.2) g/dL Albumin (3.5-5.0) g/dL Prealbumin 7 L (18-36) mg/dL 07/10/16 07/10/16 07/10/16 Range/Units 05:30 05:30 14:01 WBC (3.8-10.6) k/uL RBC (4.30-5.90) m/uL Hgb (13.0-17.5) gm/dL Hct (39.0-53.0) % Plt Count (150-450) k/uL Neutrophils # (Manual) (1.3-7.7) k/uL Lymphocytes # (Manual) (1.0-4.8) k/uL PT 68.3 H (9.0-12.0) sec INR 6.7 H* (<1.1) ABG pH (7.35-7.45) ABG pCO2 (35-45) mmHg ABG pO2 (83-108) mmHg ABG HCO3 (21-25) mmol/L ABG Total CO2 (19-24) mmol/L Sodium 123 L (137-145) mmol/L Potassium 5.9 H (3.5-5.1) mmol/L Chloride (98-107) mmol/L Carbon Dioxide 10 L* (22-30) mmol/L BUN 40 H (9-20) mg/dL Creatinine 2.40 H (0.66-1.25) mg/dL POC Glucose (mg/dL) 188 H (75-99) mg/dL Calcium 7.3 L (8.4-10.2) mg/dL Phosphorus 7.0 H (2.5-4.5) mg/dL Total Bilirubin 6.8 H (0.2-1.3) mg/dL AST 6171 H (17-59) U/L ALT 4472 H (21-72) U/L Total Protein 5.6 L (6.3-8.2) g/dL Albumin 3.2 L (3.5-5.0) g/dL Prealbumin (18-36) mg/dL 07/10/16/ Range/Units 17:35 22:46 WBC (3.8-10.6) k/uL RBC (4.30-5.90) m/uL Hgb (13.0-17.5) gm/dL Hct (39.0-53.0) % Plt Count (150-450) k/uL Neutrophils # (Manual) (1.3-7.7) k/uL Lymphocytes # (Manual) (1.0-4.8) k/uL PT (9.0-12.0) sec INR (<1.1) ABG pH (7.35-7.45) ABG pCO2 (35-45) mmHg ABG pO2 (83-108) mmHg ABG HCO3 (21-25) mmol/L ABG Total CO2 (19-24) mmol/L Sodium 120 L* (137-145) mmol/L Potassium 5.2 H (3.5-5.1) mmol/L Chloride 94 L (98-107) mmol/L Carbon Dioxide 14 L (22-30) mmol/L BUN (9-20) mg/dL Creatinine (0.66-1.25) mg/dL POC Glucose (mg/dL) 127 H (75-99) mg/dL Calcium (8.4-10.2) mg/dL Phosphorus (2.5-4.5) mg/dL Total Bilirubin (0.2-1.3) mg/dL AST (17-59) U/L ALT (21-72) U/L Total Protein (6.3-8.2) g/dL Albumin (3.5-5.0) g/dL Prealbumin (18-36) mg/dL Microbiology - Last 24 Hours (Table) 07/08/16 21:03 Blood Culture - Preliminary Blood No Growth after 48 hours 07/09/16 02:15 Urine Culture - Final Urine,Voided Laboratory Results WBC 25.5 k/uL (3.8-10.6) H* 07/10/16 05:30 RBC 3.81 m/uL (4.30-5.90) L 07/10/16 05:30 Hgb 12.9 gm/dL (13.0-17.5) L 07/10/16 05:30 Hct 37.8 % (39.0-53.0) L 07/10/16 05:30 MCV 99.4 fL (80.0-100.0) 07/10/16 05:30 MCH 34.0 pg (25.0-35.0) 07/10/16 05:30 MCHC 34.2 g/dL (31.0-37.0) 07/10/16 05:30 RDW 14.5 % (11.5-15.5) 07/10/16 05:30 Plt Count 86 k/uL (150-450) L 07/10/16 05:30 Neutrophils % 90 % 07/09/16 22:00 Neutrophils % (Manual) 92.0 % 07/10/16 05:30 Band Neutrophils % 1.0 % 07/10/16 05:30 Lymphocytes % 5 % 07/09/16 22:00 Lymphocytes % (Manual) 3.5 % 07/10/16 05:30 Monocytes % 4 % 07/09/16 22:00 Monocytes % (Manual) 3.5 % 07/10/16 05:30 Eosinophils % 0 % 07/09/16 22:00 Basophils % 0 % 07/09/16 22:00 Neutrophils # 18.0 k/uL (1.3-7.7) H 07/09/16 22:00 Neutrophils # (Manual) 23.7 k/uL (1.3-7.7) H 07/10/16 05:30 Lymphocytes # 1.0 k/uL (1.0-4.8) 07/09/16 22:00 Lymphocytes # (Manual) 0.9 k/uL (1.0-4.8) L 07/10/16 05:30 Monocytes # 0.8 k/uL (0-1.0) 07/09/16 22:00 Monocytes # (Manual) 0.9 k/uL (0-1.0) 07/10/16 05:30 Eosinophils # 0.1 k/uL (0-0.7) 07/09/16 22:00 Basophils # 0.0 k/uL (0-0.2) 07/09/16 22:00 Nucleated RBCs 0 /100 WBC (0-0) 07/10/16 05:30 Polychromasia Present 07/10/16 05:30 Hypochromasia Slight 07/09/16 22:00 Poikilocytosis (manual Present 07/10/16 05:30 Anisocytosis (manual) Present 07/10/16 05:30 Macrocytosis Slight 07/10/16 05:30 PT 68.3 sec (9.0-12.0) H 07/10/16 05:30 INR 6.7 (<1.1) H* 07/10/16 05:30 APTT 39.8 sec (22.0-30.0) H 07/09/16 22:00 D-Dimer 3.99 mg/L FEU (<0.60) H 07/08/16 21:03 Sample Site RRAD 07/10/16 05:15 ABG pH 7.26 (7.35-7.45) L 07/10/16 05:15 ABG pCO2 20 mmHg (35-45) L* 07/10/16 05:15 ABG pO2 82 mmHg (83-108) L 07/10/16 05:15 ABG HCO3 9 mmol/L (21-25) L* 07/10/16 05:15 ABG Total CO2 9 mmol/L (19-24) L 07/10/16 05:15 ABG O2 Saturation 95.0 % (94-97) 07/10/16 05:15 ABG Base Excess -17.1 mmol/L 07/10/16 05:15 FiO2 32 % 07/10/16 05:15 Sodium 120 mmol/L (137-145) L* 07/10/16 17:35 Potassium 5.2 mmol/L (3.5-5.1) H 07/10/16 17:35 Chloride 94 mmol/L (98-107) L 07/10/16 17:35 Carbon Dioxide 14 mmol/L (22-30) L 07/10/16 17:35 Anion Gap 12 mmol/L 07/10/16 17:35 BUN 40 mg/dL (9-20) H 07/10/16 05:30 Creatinine 2.40 mg/dL (0.66-1.25) H 07/10/16 05:30 Est GFR (MDRD) Af Amer 35 (>60 ml/min/1.73 sqM) 07/10/16 05:30 Est GFR (MDRD) Non-Af 29 (>60 ml/min/1.73 sqM) 07/10/16 05:30 Glucose 88 mg/dL (74-99) 07/10/16 05:30 POC Glucose (mg/dL) 127 mg/dL (75-99) H 07/10/16 22:46 POC Glu [employer] ID Joi Lopez 07/10/16 22:46 Osmolality 285 mosm/kg (280-301) 07/10/16 17:35 Plasma Lactic Acid Magdi 4.8 mmol/L (0.7-2.0) H* 07/09/16 22:00 Calcium 7.3 mg/dL (8.4-10.2) L 07/10/16 05:30 Phosphorus 7.0 mg/dL (2.5-4.5) H 07/10/16 05:30 Magnesium 1.8 mg/dL (1.6-2.3) 07/10/16 05:30 Total Bilirubin 6.8 mg/dL (0.2-1.3) H 07/10/16 05:30 AST 6171 U/L (17-59) H 07/10/16 05:30 ALT 4472 U/L (21-72) H 07/10/16 05:30 Alkaline Phosphatase 86 U/L (38-126) 07/10/16 05:30 Total Creatine Kinase 494 U/L (55-170) H 07/08/16 21:03 CK-MB (CK-2) 5.0 ng/mL (0.0-2.4) H* 07/08/16 21:03 CK-MB (CK-2) Rel Index 1.0 07/08/16 21:03 Troponin I 0.108 ng/mL (0.000-0.034) H* 07/09/16 02:54 NT-Pro-B Natriuret Pep 66288 pg/mL 07/08/16 21:03 Total Protein 5.6 g/dL (6.3-8.2) L 07/10/16 05:30 Albumin 3.2 g/dL (3.5-5.0) L 07/10/16 05:30 Prealbumin 7 mg/dL (18-36) L 07/10/16 00:15 Amylase 42 U/L (30-110) 07/08/16 21:03 Lipase 145 U/L (23-300) 07/08/16 21:03 Urine Color Dark Red 07/09/16 02:15 Urine Appearance Turbid (Clear) 07/09/16 02:15 Urine pH 6.5 (5.0-8.0) 07/09/16 02:15 Ur Specific [place] 1.024 (1.001-1.035) 07/09/16 02:15 Urine Protein 3+ (Negative) H 07/09/16 02:15 Urine Glucose (UA) 1+ (Negative) H 07/09/16 02:15 Urine Ketones Negative (Negative) 07/09/16 02:15 Urine Blood Large (Negative) H 07/09/16 02:15 Urine Nitrite Negative (Negative) 07/09/16 02:15 Urine Bilirubin Negative (Negative) 07/09/16 02:15 Urine Urobilinogen <2.0 mg/dL (<2.0) 07/09/16 02:15 Ur Leukocyte Esterase Large (Negative) H 07/09/16 02:15 Urine RBC >182 /hpf (0-5) H 07/09/16 02:15 Urine WBC >182 /hpf (0-5) H 07/09/16 02:15 Ur Squamous Epith Cells 9 /hpf (0-4) H 07/09/16 02:15 Urine Bacteria Few /hpf (None) H 07/09/16 02:15 Digoxin 0.5 ng/mL 07/08/16 22:00 Serum Alcohol <10 mg/dL 07/08/16 22:00 Hepatitis A IgM Ab NEGATIVE 07/10/16 00:15 Hep Bs Antigen Negative 07/10/16 00:15 Hep B Core IgM Ab NEGATIVE 07/10/16 00:15 Hep C IgG Ab Negative (Negative) 07/10/16 00:15 Blood Type B Positive 07/08/16 21:03 Blood Type Recheck B Pos 07/08/16 21:03 Antibody Screen NEGATIVE 07/08/16 21:03 Spec Expiration Date 07/11/2016 - 230207/08/16 21:03 Microbiology 07/08/16 21:03 Blood Blood Culture - Preliminary No Growth after 48 hours 07/09/16 02:15 Urine,Voided Urine Culture - Final Assessment and Plan (1) Severe sepsis Narrative/Plan: 45-year-old male presents to hospital with profound weakness. Has a known history of nonischemic cardiomyopathy. At presentation there is evidence of potential congestive heart failure. Concerns for significant pneumonia with sepsis. Profound lactic acidosis with hypoperfusion. Evidence of potential cardiac injury, renal insufficiency as well as acute hepatic injury are all noted. Perfusion is improved at this point in time is being followed by pulmonary critical care. Concerns to sepsis and is on antibiotic therapy with Levaquin and vancomycin. Cultures are in process. Patient is improved. Acute hepatitis panel was requested because of the markedly abnormal liver function tests. Blood and sputum cultures are process. Lactic acidosis is now improved to 4.8. INR markedly elevated. with the elevated INR levofloxacin Cultures are in process. Ongoing supportive Prognosis remains poor. Status: Acute (2) Nonischemic cardiomyopathy Status: Acute (3) Lactic acidosis Status: Acute (4) Hepatitis Status: Acute
[2016-07-11 04:54] LABS: Basophils % (A) 0 %; CH 32.2; CHCM 32.8; Eosinophils % (A) 0 %; HDW 3.14; HGB 11.8 gm/dL (13.0-17.5); Luc # (Auto) 0.14; Luc % (Auto) 1; Lymphocytes # (A) 0.8 k/uL (1.0-4.8); Lymphocytes % (A) 5 %; MCH 32.6 pg (25.0-35.0); MCHC 32.9 g/dL (31.0-37.0); MCV 98.8 fL (80.0-100.0); Macrocytosis Slight; Mean Platelet Volume 11.1; Monocytes # (A) 0.7 k/uL (0-1.0); Monocytes % (A) 4 %; Neutrophils # (A) 13.7 k/uL (1.3-7.7); Neutrophils % (A) 90 %; RBC 3.64 m/uL (4.30-5.90); RDW 14.7 % (11.5-15.5); WBC 15.3 k/uL (3.8-10.6); WBC (Perox) 16.37
[2016-07-11 04:59] LABS: Partial Thromboplastin Time 43.9 sec (22.0-30.0)
[2016-07-11 05:00] LABS: Calcium 7.5 mg/dL (8.4-10.2); Magnesium 2.3 mg/dL (1.6-2.3); Phosphorous 5.8 mg/dL (2.5-4.5); Potassium 5.6 mmol/L (3.5-5.1); Total Bilirubin 6.6 mg/dL (0.2-1.3); Total Protein 5.2 g/dL (6.3-8.2)
[2016-07-11 05:09] LABS: Prothrombin Time 54.8 sec (9.0-12.0)
[2016-07-11 05:10] LABS: INR 5.5 (<1.1)
[2016-07-11] MEDS ORDERED: VANCOMYCIN TROUGH DUE 1 EACH MISC MISCELLANE ONE (06:00)
--- NOTE | 2016-07-11 08:09 | XR ---
EXAMINATION TYPE: XR chest 1V portable DATE OF EXAM: 07/11/2016 7:10 AM Comparison: 07/10/2016 Clinical History: 45 year-old male shortness of breath. Findings: Left anterior chest wall AICD generator with right atrial and right ventricular leads. Mild to moderate cardiomegaly redemonstrated. There is slight increased, now moderate left pleural ef fusion with adjacent opacity and continued opacity at the right base. Impression: 1. Continued cardiomegaly now with increased moderate left pleural effusion with adjacent atelectasis and/or consolidation. Correlate for CHF/fluid overload as an etiology. 2. Small effusion on the right with stable infiltrate.
[2016-07-11] MEDS: MEROPENEM 1 GM in SODIUM CHLORIDE 0.9% 100 ML IVPB SCH ×2 (08:53→20:50)
[2016-07-11] MEDS: PANTOPRAZOLE 40 MG/10 ML VIAL IVP SCH (08:53)
[2016-07-11] MEDS: DOCUSATE 100 MG CAP PO SCH ×2 (08:54→20:50)
[2016-07-11] MEDS ORDERED: VANCOMYCIN 1,500 MG in SODIUM CHLORIDE 0.9% 250 ML IVPB SCH (09:00)
[2016-07-11] MEDS: NOREPINEPHRIN 16 MG-0.9%NS PMX 16 MG/250 ML ML IV SCH (09:02)
[2016-07-11] MEDS ORDERED: FUROSEMIDE 10 MG/ML 10 ML VIAL IV STA (09:29)
[2016-07-11] MEDS ORDERED: SODIUM BICARB 8.4% 50 ML SYR (1 MEQ/ML) IV STA (09:34)
--- NOTE | 2016-07-11 09:34 | P.NPCON ---
History of Present Illness - Reason for Consult acute renal failure - History of Present Illness Reason for consultation: Acute kidney injury History of present illness: Patient is a 45-year-old male seen in renal consultation for acute kidney injury. His baseline creatinine is 1 and was elevated at 1.8 on admission. Peaked at 2.4 and is little improved at 2.2 today. Patient presented to the hospital with generalized weakness and lethargy. Patient was seen at [facility] a few days ago and at that time he was noted to be dehydrated. He was given some IV fluids and subsequently discharged. He overall condition deteriorated and he presented to the hospital. He underwent a CTA on July 08 which was negative for PE. He does have severe systolic CHF with ejection fraction of 20-25% with severe pulmonary hypertension as well as mitral and tricuspid regurgitation. His lactic acid level was 14 and is 5.8 this morning. He's also noted to be in acute liver injury with AST and ALT over 4000. He's also been quite hypotensive this admission and is currently on 7 mics of levo fed. So maintained on isotonic sodium bicarbonate drip which is running at 100 mL an hour. His urine output is in the range of 50-75 per hour. His sodium level was also low and was down to 120 last night. He did receive 4 hours of 3% saline and sodium level is 121 this morning. He is not eating and drinking much at this time. Patient is laying in bed and is quite lethargic. He is not a reliable historian. Vital signs are stable. General: The patient appeared well nourished and normally developed. HEENT: Head exam is unremarkable. Neck is without jugular venous distension. LUNGS: Diffuse rhonchi. Breath sounds decreased. HEART: Rate and Rhythm are regular. First and second heart sounds normal. No murmurs, rubs or gallops. ABDOMEN: Abdominal exam reveals normal bowel sounds. Non-tender and non- distended. No evidence of peritonitis. EXTREMITITES: 1+ edema. Past Medical History Past Medical History: Atrial Fibrillation, Heart Failure, Hyperlipidemia, Osteoarthritis (OA), Pneumonia Additional Past Medical History / Comment(s): Pt diagnosed with cardiomyopathy end of 2007 and had episode of respiratory failure with intubation/ventilation. He is followed at the [facility]. Other hx: pericardial effusion. History of Any Multi-Drug Resistant Organisms: None Reported Past Surgical History: AICD, Cholecystectomy Additional Past Surgical History / Comment(s): 2009 AICD, cardiac cath 2016, vasectomy. Past Anesthesia/Blood Transfusion Reactions: No Reported Reaction Type of Cardiac Device: AICD Device Placement Date:: 2008 Past Psychological History: No Psychological Hx Reported Additional Psychological History / Comment(s): Follows a [facility] there is not a candidate for LVAD or transplant because of his tobacco use did not relate to other drug use but is of concern. 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 No experience. Pet dog at home Smoking Status: Current every day smoker (Patient smokes about 10 cigars every day and he started when he was 11-year-old.) Past Alcohol Use History: None Reported (Patient used to drink about 12-24 beers daily basis and he quit in 2007.) Additional Past Alcohol Use History / Comment(s): Pt started smoking in 1986 and is down to 10 cigarettes a day. He quit drinking in 2008. Past Drug Use History: None Reported - Past Family History Mother Family Medical History: Congestive Heart Failure (CHF) (Mother is 69-year-old has history of congestive heart failure so is his grandmother.) Father Family Medical History: Coronary Artery Disease (CAD) (Father 7-year-old with history of CAD post CABG with hyperlipidemia.), Hyperlipidemia Brother(s) Family Medical History: No Reported History, Musculoskeletal Disorder (Patient has 3 brothers one of them with lupus and other one with spinal stenosis third one is healthy) Sister(s) Family Medical History: No Reported History (Patient has one sister who is overweight.) Son(s) Family Medical History: No Reported History (Patient has 2 sons no major medical problems) Daughter(s) Family Medical History: No Reported History (One daughter no major medical problems) Medications and Allergies Home Medications Medication Instructions Recorded Confirmed Type Carvedilol [Coreg] 6.25 mg PO BID 07/25/15 07/09/16 History Lisinopril [Prinivil] 2.5 mg PO DAILY 07/25/15 07/09/16 History Warfarin [Coumadin] 10 mg PO MOWE 07/25/15 07/09/16 History Cetirizine HCl [Zyrtec] 10 mg PO DAILY 07/09/16 07/09/16 History Digoxin [Lanoxin] 125 mcg PO DAILY 07/09/16 07/09/16 History Warfarin [Coumadin] 7.5 mg PO SUTUTHFRSA 07/09/16 07/09/16 History Allergies Allergy/AdvReac Type Severity Reaction Status Date / Time codeine Allergy Unknown Dyspnea Verified 07/09/16 18:25 Penicillins Allergy Unknown Dyspnea Verified 07/09/16 18:25 Physical Exam Vitals: Vital Signs Temp Pulse Resp BP Pulse Ox 07/11/16 08:30 107 H 21 111/78 07/11/16 08:00 97.4 F L 108 H 22 107/76 93 L 07/11/16 07:30 106 H 17 104/81 94 L 07/11/16 07:00 108 H 22 98/81 07/11/16 06:30 107 H 22 102/79 94 L 07/11/16 06:00 107 H 21 102/76 94 L 07/11/16 05:30 104 H 17 103/78 95 07/11/16 05:00 106 H 20 94/79 95 07/11/16 04:30 107 H 20 106/78 96 07/11/16 04:00 107 H 20 104/79 92 L 07/11/16 03:30 105 H 23 98/81 91 L 07/11/16 03:03 23 07/11/16 03:00 106 H 23 101/79 93 L 07/11/16 02:30 105 H 20 99/79 93 L 07/11/16 02:00 105 H 21 105/76 93 L 07/11/16 01:30 105 H 18 103/74 93 L 07/11/16 01:00 105 H 21 103/79 94 L 07/11/16 00:30 105 H 18 102/80 92 L 07/11/16 00:06 106 H 17 102/79 92 L 07/11/16 00:00 96.5 F L 105 H 23 102/79 92 L 07/10/16 23:30 104 H 21 103/85 93 L 07/10/16 23:23 26 H 07/10/16 23:00 107 H 26 H 107/85 96 07/10/16 22:30 107 H 26 H 96 07/10/16 22:00 108 H 24 99/83 95 07/10/16 21:30 106 H 24 102/79 95 07/10/16 21:00 107 H 24 99/80 95 07/10/16 20:30 106 H 23 109/70 95 07/10/16 20:00 96.3 F L 105 H 24 106/77 95 07/10/16 19:30 109 H 20 105/83 07/10/16 19:00 106 H 25 H 107/81 07/10/16 18:30 105 H 22 107/79 07/10/16 18:00 106 H 22 107/83 07/10/16 17:30 107 H 25 H 99/87 07/10/16 17:00 105 H 24 104/81 07/10/16 16:30 105 H 23 100/84 07/10/16 16:00 106 H 25 H 102/82 07/10/16 15:30 105 H 24 106/80 07/10/16 15:00 106 H 21 105/86 07/10/16 14:30 106 H 22 100/89 07/10/16 14:00 106 H 19 106/84 07/10/16 13:30 107 H 24 114/88 07/10/16 13:00 103 H 17 108/80 07/10/16 12:30 101 H 22 91/78 07/10/16 12:00 97.5 F L 101 H 25 H 100/74 07/10/16 11:30 101 H 25 H 95/77 07/10/16 11:00 102 H 22 105/80 07/10/16 10:30 101 H 26 H 99/77 07/10/16 10:00 103 H 32 H 105/81 07/10/16 09:30 100 23 97/64 Intake and Output 07/10/16 07/11/16 07/11/16 22:59 06:59 14:59 Intake Total 750 1125 156.015 Output Total 520 785 Balance 230 340 156.015 Intake: IV 100 800 Dextrose 5% in Water 1, 100 800 000 ml @ 100 mls/hr IV . [id number] LENNIE with Sodium Bicarb (1 Meq/ml) 150 ml Rx#:[id number] Intake, IV Titration 650 50 156.015 Amount Dextrose 5% in Water 1, 400 000 ml @ 100 mls/hr IV . [id number] LENNIE with Sodium Bicarb (1 Meq/ml) 150 ml Rx#:[id number] Meropenem 1 gm In Sodium 100 Chloride 0.9% 100 ml @ 200 mls/hr IVPB Q12HR LENNIE Rx#:[id number] Norepinephrin 16 mg-0.9% 156.015 Ns Pmx 16 mg In 250 ml @ Titrate IV .Q0M LENNIE Rx#: [id number] Sodium Chloride 3%( 150 50 Hypertonic) 500 ml @ 50 mls/hr IV .Q10H LENNIE Rx#: [id number] Oral 200 Tube Feeding 75 Output: Urine 520 785 Other: Voiding Method Indwelling Catheter Indwelling Catheter Weight 79.1 kg 86.5 kg Results - Lab Results Most recent lab results ABG pH 7.26 (7.35-7.45) L 07/10/16 05:15 ABG pCO2 20 mmHg (35-45) L* 07/10/16 05:15 ABG pO2 82 mmHg (83-108) L 07/10/16 05:15 ABG HCO3 9 mmol/L (21-25) L* 07/10/16 05:15 ABG O2 Saturation 95.0 % (94-97) 07/10/16 05:15 Calcium 7.5 mg/dL (8.4-10.2) L 07/11/16 04:32 Phosphorus 5.8 mg/dL (2.5-4.5) H 07/11/16 04:32 Magnesium 2.3 mg/dL (1.6-2.3) 07/11/16 04:32 07/11/16 04:32 07/11/16 04:32 Assessment and Plan Plan: Assessment: #1. Nonoliguric acute kidney injury secondary to ischemic ATN secondary to shock which is cardiogenic in nature. There is also concern for sepsis. His baseline creatinine is 1 and peaked at 2.4 this admission. It is down to 2.2 today. #2. Hypervolemic hyponatremia. Sodium level was 120s of last night and is 121 this morning. #3. Volume overload. #4. Systolic CHF with ejection fraction of 20-25% with severe pulmonary hypertension and severe mitral and tricuspid regurgitation. #5. Lactic acidosis secondary to acute liver failure. #6. Hyperkalemia secondary to metabolic acidosis and acute kidney injury. #7. Metabolic acidosis secondary to acute kidney injury as well as lactic acidosis. #8. Coumadin toxicity. Plan: Maintain isotonic sodium bicarbonate drip to be run at 100 mL an hour. I will give him 2 A of sodium bicarbonate IV push in addition. Lasix 100 mg IV once today. Wean vasopressors as tolerated. Avoid nephrotoxic agents and hypotensive episodes. Repeat BMP at 4 PM today. Follow-up cultures. Antibiotics per infectious disease recommendations. Monitor vancomycin levels. Thank you for the consultation. I will continue to follow patient with you during his hospital stay.
[2016-07-11] MEDS: DEXTROSE 5% IN WATER 1,000 ML with SODIUM BICARB (1 MEQ/ML) 150 ML IV SCH ×3 (10:21→23:00)
[2016-07-11] MEDS: SODIUM CHLORIDE 3%(HYPERTONIC) 500 ML IV SCH ×2 (10:21→16:07)
--- NOTE | 2016-07-11 11:54 | PN ---
INTERVAL HISTORY: Patient continues to be lethargic and requiring support with Levophed at 6 mcg/kg per minute. Patient is still in moderate distress in the intensive care unit setting. PHYSICAL EXAMINATION: VITAL SIGNS: 97.4, heart rate of 108, respiratory rate 22, blood pressure 107/76 and saturation 93% on 3 L nasal cannula. GENERAL: Lethargic. Follows simple commands but seems to be difficult to arouse. LUNGS: Diminished bilaterally. HEART: Normal S1, S2. Tachycardic. ABDOMEN: Soft. No tenderness. Bowel sounds positive in all 4 quadrants. LOWER EXTREMITIES: No rash. PSYCH: As above. IMAGING AND LABS: White blood count 15.3, hemoglobin 11.8, platelet 67. INR 5.5. PTT 43.9. Sodium 121, up from 120. Potassium is up to 5.6 from 5.2. Creatinine is down to 2.2 from 2.4 yesterday. Anion gap is 12. Glucose is fluctuating between 119 and 188. Plasma lactic acid, venous, is 5.9. Calcium 7.5. Phosphorus 5.8. Total bilirubin is 6.6. AST and ALT are 4730 and 4725, respectively. Total protein 5.2. Albumin is 3.0. Vancomycin level is 15.4. Hepatitis panel is negative. Urine culture is still negative. Blood cultures are still negative. ASSESSMENT AND PLAN: 1. Septic shock requiring Levophed infusion. 2. Pneumonia. 3. Increased moderate left pleural effusion. 4. Severe electrolyte imbalance. 5. Thrombocytopenia. 6. Elevated liver enzymes with shock liver. 7. Elevated PTT, PT and INR. 8. Leukocytosis. 9. Lactic acidosis. 10. Acute kidney injury. PLAN: We will continue current supportive care. We will continue weaning off Levophed as tolerated. 3% infusion was stopped this morning. Patient's sodium is 121. We will continue with close electrolyte monitoring and replacement. Nephrology on board. I discussed with Dr. Newman from Critical Care current management and patient carries poor prognosis. Will continue with the intensive care unit setting and we will continue close monitoring, follow up on cultures and continue wide-spectrum antibiotics.
--- NOTE | 2016-07-11 12:20 | P.PN ---
Subjective 44-year-old male patient, advanced cardiomyopathy of a nonischemic type, in addition to a previous history of chronic atrial fibrillation, alcoholism, pancreatitis, who has an AICD in place, and he is being followed up by cardiology at [facility]. The patient was last seen at [facility] few days ago. The patient has a routine appointment artery was felt to be hypotensive and dehydrated. He was given IV fluids for about 2 hours and then he was released home. Subsequently, the patient had become again short of breath and he was having dry heaves and for that reason he came into the hospital where he was found to have significant abnormalities. The patient was found to be hypotensive. At the same time was found to have severe metabolic acidosis of a anion gap type and this was essentially lactic acidosis. Urine was cloudy and 30 and a Alfonso catheter was inserted and the urinalysis quite abnormal. In addition, the patient had been Coumadin toxic and he was in acute kidney failure with a creatinine of 1.8. Overnight, the patient was given IV fluids. He received IV fluid, triple-lumen catheter was inserted and the patient was started on pressors for hypotension currently the patient's blood pressure is stable on 5 mics of levo fed for blood pressure support. Troponins were mildly positive with 0.07 and 0.1 respectively 2, proBNP level was markedly elevated at 56,000, blood gases showed severe metabolic acidosis and the CAT scan of the chest showed COPD with small better pleural effusions and there was evidence of any pulmonary embolism. The CAT scan of the abdomen and pelvis also showed small volume of abdominal ascites and the patient had hepatomegaly and evidence of right-sided heart failure. The patient was seen and evaluated this morning. He is doing well. He is alert and awake. His urine output remains low. No nausea. No vomiting. No change in mental status. No chest pain. No shortness of breath. He feels much better and improved compared to yesterday. No hemoptysis. No pleurisy. No other complaints otherwise. On 07/10/2016 the patient is still doing poorly. As mentioned earlier he is in shock and this is likely a combination of septic and cardiogenic shock. The patient developed some leukocytosis and currently is on a combination of Merrem and vancomycin as broad-spectrum antibiotic coverage. I do suspect an underlying urine checked infection with secondary septicemia. Meanwhile, the patient got resuscitated IV fluids and currently is on normal saline at the rate of 100 mL an hour and his urine output is somewhat between 25-30 mL an hour. He has developed an acute kidney injury and also an acute shock liver. Her creatinine is up to 2.2 with a potassium level of 5.9 and underlying metabolic acidosis. Also, the patient is significantly elevated liver function tests secondary to shock liver. Lactic acid levels remain elevated for the reasons mentioned above. The patient also developed coagulopathy which as mentioned could be multifactorial. He was given a total of 5 mg of vitamin K another 10 mg of vitamin K was given. His most recent blood gas show a pH of 7.26 with a pCO2 of 20 and pO2 of 82. Sodium level is down to 123. He has an anion gap metabolic acidosis. Creatinine is up to 2.4 as mentioned. And the patient is a bit uncomfortable and looks to be quite lethargic in bed. On 07/11/2016, the patient is still doing poorly. He is more confused compared to yesterday.He is not agitated. He is moving all 4 extremities and his neurologic exam is nonfocal. The patient remains in a combination of septic and cardiogenic shock. He is hypotensive still on 4 mics of levo fed for blood pressure support. He is currently on a bicarb drip running at and the net fluid balance is positive and the patient is producing approximately 20-30 mL of urine output on an hourly basis. The patient was further given a dose of Lasix 100 mg IV push per nephrology recommendation this morning. Renal function remains impaired with a creatinine of 2.2 and the sodium level of 121. Patient is afebrile. The patient on broad-spectrum antibiotics and currently is on a combination of Merrem and vancomycin. The blood cultures of been negative and the patient's white cell count is down to 15. In terms of his shock liver, the patient's LFTs remained significantly elevated. The numbers are improving and they are downtrending. The correlation profile is still abnormal with a PT of 54, INR of 5.5 and a PTT of 43. Despite his coagulopathy , there is no signs of any acute bleeding. Objective - Vital Signs Vital signs: Vital Signs Temp 97.4 F L 07/11/16 08:00 Pulse 107 H 07/11/16 08:30 Resp 21 07/11/16 08:30 BP 111/78 07/11/16 08:30 Pulse Ox 93 L 07/11/16 08:00 Intake & Output 07/10/16 07/11/16 07/11/16 18:59 06:59 18:59 Intake Total 1810 1575 806.015 Output Total 455 1185 325 Balance 1355 390 481.015 Weight 79.1 kg 86.5 kg Intake: IV 900 300 Dextrose 5% in Water 1, 900 300 000 ml @ 100 mls/hr IV . [id number] LENNIE with Sodium Bicarb (1 Meq/ml) 150 ml Rx#:[id number] Intake, IV Titration 1650 400 506.015 Amount Dextrose 5% in Water 1, 500 100 000 ml @ 100 mls/hr IV . [id number] LENNIE with Sodium Bicarb (1 Meq/ml) 150 ml Rx#:[id number] Magnesium Sulfate-D5w Pmx 200 1 gm In Dextrose/Water 1 100ml.bag @ 100 mls/hr IVPB Q1H [facility] Rx#: [id number] Meropenem 1 gm In Sodium 100 100 100 Chloride 0.9% 100 ml @ 200 mls/hr IVPB Q12HR [facility] Rx#:[id number] Norepinephrin 16 mg-0.9% 156.015 Ns Pmx 16 mg In 250 ml @ Titrate IV .Q0M [facility] Rx#: [id number] Sodium Chloride 0.9% 1, 600 000 ml @ 100 mls/hr IV . Q10H [facility] Rx#:[id number] Sodium Chloride 3%( 200 Hypertonic) 500 ml @ 50 mls/hr IV .Q10H [facility] Rx#: [id number] Vancomycin 1,000 mg In 250 Sodium Chloride 0.9% 250 ml @ 125 mls/hr IVPB Q16H [facility] Rx#:[id number] Vancomycin 1,500 mg In 250 Sodium Chloride 0.9% 250 ml @ 125 mls/hr IVPB Q16H [facility] Rx#:[id number] Oral 160 200 Tube Feeding 75 Output: Urine 455 1185 325 Other: Voiding Method Indwelling Catheter Indwelling Catheter - Exam Thin and frail nonacute distress communicating awake and alert. The patient is confused. He answers simple question and follows simple commands. His neurologic exam is nonfocal and the patient is moving all 4 extremity blood any limitation. No cranial nerve deficits. Head exam was generally normal. There was no scleral icterus or corneal arcus. Mucous membranes were moist. Examination of the neck shows some mild JVDs no goiter or neck masses. No thrush no oral lesions. Mucous members are dry. Lung sounds are diminished in lung bases bilaterally otherwise there is no crackles wheezes or rhonchi. Pacemaker pocket condition over the left anterior chest which is currently intact. Heart sounds are tachycardic and the patient has a positive S1 and S2. No significant murmurs appreciated. Abdomen is slightly distended soft. No direct tenderness rebound tensile guarding. Extremities show diminished pulses in the dorsalis pedis and the posterior tibialis. The feet are cold. Diminished pulses in the popliteal area. No cyanosis. No clubbing. - Labs CBC & Chem 7: 07/11/16 04:32 07/11/16 04:32 Labs: Abnormal Lab Results - Last 24 Hours (Table) 07/10/16 07/10/16 07/10/16 Range/Units 14:01 17:35 22:46 WBC (3.8-10.6) k/uL RBC (4.30-5.90) m/uL Hgb (13.0-17.5) gm/dL Hct (39.0-53.0) % Plt Count (150-450) k/uL Neutrophils # (1.3-7.7) k/uL Lymphocytes # (1.0-4.8) k/uL PT (9.0-12.0) sec INR (<1.1) APTT (22.0-30.0) sec Sodium 120 L* (137-145) mmol/L Potassium 5.2 H (3.5-5.1) mmol/L Chloride 94 L (98-107) mmol/L Carbon Dioxide 14 L (22-30) mmol/L BUN (9-20) mg/dL Creatinine (0.66-1.25) mg/dL Glucose (74-99) mg/dL POC Glucose (mg/dL) 188 H 127 H (75-99) mg/dL Plasma Lactic Acid Magdi (0.7-2.0) mmol/L Calcium (8.4-10.2) mg/dL Phosphorus (2.5-4.5) mg/dL Total Bilirubin (0.2-1.3) mg/dL AST (17-59) U/L ALT (21-72) U/L Total Protein (6.3-8.2) g/dL Albumin (3.5-5.0) g/dL 07/11/16 07/11/16 07/11/16 Range/Units 04:32 04:32 04:32 WBC (3.8-10.6) k/uL RBC (4.30-5.90) m/uL Hgb (13.0-17.5) gm/dL Hct (39.0-53.0) % Plt Count (150-450) k/uL Neutrophils # (1.3-7.7) k/uL Lymphocytes # (1.0-4.8) k/uL PT 54.8 H (9.0-12.0) sec INR 5.5 H* (<1.1) APTT 43.9 H (22.0-30.0) sec Sodium 121 L (137-145) mmol/L Potassium 5.6 H (3.5-5.1) mmol/L Chloride 94 L (98-107) mmol/L Carbon Dioxide 15 L (22-30) mmol/L BUN 46 H (9-20) mg/dL Creatinine 2.20 H (0.66-1.25) mg/dL Glucose 119 H (74-99) mg/dL POC Glucose (mg/dL) (75-99) mg/dL Plasma Lactic Acid Magdi 5.9 H* (0.7-2.0) mmol/L Calcium 7.5 L (8.4-10.2) mg/dL Phosphorus 5.8 H (2.5-4.5) mg/dL Total Bilirubin 6.6 H (0.2-1.3) mg/dL AST 4730 H (17-59) U/L ALT 4725 H (21-72) U/L Total Protein 5.2 L (6.3-8.2) g/dL Albumin 3.0 L (3.5-5.0) g/dL 07/11/16 Range/Units 04:32 WBC 15.3 H (3.8-10.6) k/uL RBC 3.64 L (4.30-5.90) m/uL Hgb 11.8 L (13.0-17.5) gm/dL Hct 36.0 L (39.0-53.0) % Plt Count 67 L (150-450) k/uL Neutrophils # 13.7 H (1.3-7.7) k/uL Lymphocytes # 0.8 L (1.0-4.8) k/uL PT (9.0-12.0) sec INR (<1.1) APTT (22.0-30.0) sec Sodium (137-145) mmol/L Potassium (3.5-5.1) mmol/L Chloride (98-107) mmol/L Carbon Dioxide (22-30) mmol/L BUN (9-20) mg/dL Creatinine (0.66-1.25) mg/dL Glucose (74-99) mg/dL POC Glucose (mg/dL) (75-99) mg/dL Plasma Lactic Acid Magdi (0.7-2.0) mmol/L Calcium (8.4-10.2) mg/dL Phosphorus (2.5-4.5) mg/dL Total Bilirubin (0.2-1.3) mg/dL AST (17-59) U/L ALT (21-72) U/L Total Protein (6.3-8.2) g/dL Albumin (3.5-5.0) g/dL Microbiology - Last 24 Hours (Table) 07/08/16 21:03 Blood Culture - Preliminary Blood No Growth after 48 hours 07/09/16 02:15 Urine Culture - Final Urine,Voided Assessment and Plan Plan: Assessment 1 shock, likely a combination of septic and cardiogenic in nature. The decompensating fact that although seems to be septic and I'm suspicious that the patient may have an underlying urine checked infection . Alternative sources of infection cannot be completely excluded. The patient is currently hypotensive and pressor dependent. Patient remains on 4 g of norepinephrine infusion. 2 hypotension secondary to above, currently pressor dependent 3 severe lactic acidosis and mom most likely secondary to sepsis/hypoperfusion 4 advanced cardiomyopathy ,the patient has advanced cardiomyopathy with an ejection fraction of 20-25%, evidence of biventricular failure, evidence of severe mitral regurgitation and moderate degree of pulmonary hypertension. 5 chronic atrial fibrillation, currently in sinus tachycardia. 6 Coumadin toxicity without evidence of any acute bleeding. The coagulopathy that was observed could be also be related to an underlying DIC/shock liver 7 acute kidney injury 8 history of alcoholism 9 small and chronic bilateral lower lobe pleural effusion related to heart failure 10 history of pancreatitis 11 troponin leak secondary to above 12 anion gap metabolic acidosis 13 hyperlipidemia 14 lactic acidosis 15 altered mental status. Plan The patient carries a very high mortality based on evidence of shock and multisystem organ failure. On today's evaluation was noted to be increasingly confused. We'll check an ammonia level and consider the possibility of an underlying hepatitic encephalopathy. The coagulopathy was noted and the patient will be given at total of 2 units of fresh frozen plasma. The patient is receiving bicarb drip at the rate of 100 cc an hour and this will be continued. Agree on the Lasix to monitor urine output. He has increased edema in lower extremities and the patient has Tamia megaly with increased wheezing left-sided pleural effusion as noted on today's chest x-ray. He is also developing some right-sided pleural effusion. I think it's reasonable to continue diuresing this patient to maintain a equal fluid balance. Continue same antibiotic coverage. Continue meropenem. Continue vancomycin. We'll give the patient another dose of Kayexalate 45 mg by mouth daily anticipating worsening hyperkalemia. We'll continue to follow make further recommendations based on his progress. Prognosis poor baseline above-mentioned comorbidities. Further care evaluation. More than 30 minutes. Time with Patient: Greater than 30
[2016-07-11] MEDS ORDERED: SODIUM POLYSTYRENE SULFONATE 15 GM/60 ML BOTTLE PO STA (12:22)
--- NOTE | 2016-07-11 16:27 | P.PN ---
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 He relates occurred after some type of infection years ago. Follows at the [facility] heart failure, cardiac support team. He relates this is an ongoing smoker has not been a candidate for any type of left ventricular assist device or transplant. He does have arrhythmia and has a AICD in place. Patient relates that he has markedly worsened his status over the last short period of time. Becoming much more short of breath and weak. He also developed nausea and emesis. At presentation evidence of hypotension, profound lactic acidosis. Potential urinary tract infection and pneumonia. As well as alteration of his renal status with acute renal failure. With resuscitation is improving but there is also concerns to elevated BNP and troponins. Markedly abnormal liver function tests were also noted. There is been a mild improvement of his acidosis. However continues to have evidence of hepatic failure, acute renal failure, and hypotension. He is regaining ability of an appetite and is able to drink some protein supplement. He is denying nausea or emesis. Does feel very weak overall. Daughter is present. Family seems to have little understanding about his disease state. Objective - Vital Signs Vital signs: Vital Signs Temp 98.0 F 07/11/16 16:04 Pulse 110 H 07/11/16 16:04 Resp 25 H 07/11/16 16:04 BP 105/78 07/11/16 16:04 Pulse Ox 94 L 07/11/16 16:04 Intake & Output 07/10/16 07/11/16 07/11/16 18:59 06:59 18:59 Intake Total 1810 1575 1724.015 Output Total 455 1185 1375 Balance 1355 390 349.015 Weight 79.1 kg 86.5 kg 86.5 kg Intake: IV 900 700 Dextrose 5% in Water 1, 900 700 000 ml @ 100 mls/hr IV . [id number] LENNIE with Sodium Bicarb (1 Meq/ml) 150 ml Rx#:[id number] Intake, IV Titration 1650 400 506.015 Amount Dextrose 5% in Water 1, 500 100 000 ml @ 100 mls/hr IV . [id number] LENNIE with Sodium Bicarb (1 Meq/ml) 150 ml Rx#:[id number] Magnesium Sulfate-D5w Pmx 200 1 gm In Dextrose/Water 1 100ml.bag @ 100 mls/hr IVPB Q1H LENNIE Rx#: [id number] Meropenem 1 gm In Sodium 100 100 100 Chloride 0.9% 100 ml @ 200 mls/hr IVPB Q12HR LENNIE Rx#:[id number] Norepinephrin 16 mg-0.9% 156.015 Ns Pmx 16 mg In 250 ml @ Titrate IV .Q0M LENNIE Rx#: [id number] Sodium Chloride 0.9% 1, 600 000 ml @ 100 mls/hr IV . Q10H LENNIE Rx#:[id number] Sodium Chloride 3%( 200 Hypertonic) 500 ml @ 50 mls/hr IV .Q10H LENNIE Rx#: [id number] Vancomycin 1,000 mg In 250 Sodium Chloride 0.9% 250 ml @ 125 mls/hr IVPB Q16H LENNIE Rx#:[id number] Vancomycin 1,500 mg In 250 Sodium Chloride 0.9% 250 ml @ 125 mls/hr IVPB Q16H LENNIE Rx#:[id number] Oral 160 200 210 Tube Feeding 75 Blood Product 308 Ffp 24 Cp2d Unit 308 [id number] Ffp 24 Cp2d Unit 0 [id number] Output: Urine 455 1185 1375 Other: Voiding Method Indwelling Catheter Indwelling Catheter Indwelling Catheter # Bowel Movements 0 - Exam 45-year-old male who looks much older than his stated age. He is a very thin nearly cachectic build. Poor hygiene. HEENT:icteric ,conjunctiva are pink and moist nasal mucosa grossly intact without significant lesions, there is no thrush. Very poor dentition but no thrush Neck: The neck is supple without significant lymphadenopathy or thyromegaly. Lungs: Symmetrical air entry with evidence of crackles throughout the lung olivas. Bibasilar crackles are heard. Heart: Irregular with an audible S1 and S2 positive S4 2/6 Tollett murmur left sternal border the radius to the axillas heard. PMI is nondisplaced. Abdomen: Positive bowel sounds soft and nontender without palpable masses or organomegaly. There was no guarding or rebound. Extremities: Extremities have some generalized edema. Lower extremities have 2 + edema. No open lesions are seen Neuro: Awake alert oriented to person place and time. There are no acute new gross focal sensory motor deficits. - Labs CBC & Chem 7: 07/11/16 04:32 07/11/16 04:32 Labs: Abnormal Lab Results - Last 24 Hours (Table) 07/10/16 07/10/16 07/11/16 Range/Units 17:35 22:46 04:32 WBC (3.8-10.6) k/uL RBC (4.30-5.90) m/uL Hgb (13.0-17.5) gm/dL Hct (39.0-53.0) % Plt Count (150-450) k/uL Neutrophils # (1.3-7.7) k/uL Lymphocytes # (1.0-4.8) k/uL PT 54.8 H (9.0-12.0) sec INR 5.5 H* (<1.1) APTT 43.9 H (22.0-30.0) sec Sodium 120 L* (137-145) mmol/L Potassium 5.2 H (3.5-5.1) mmol/L Chloride 94 L (98-107) mmol/L Carbon Dioxide 14 L (22-30) mmol/L BUN (9-20) mg/dL Creatinine (0.66-1.25) mg/dL Glucose (74-99) mg/dL POC Glucose (mg/dL) 127 H (75-99) mg/dL Plasma Lactic Acid Magdi (0.7-2.0) mmol/L Calcium (8.4-10.2) mg/dL Phosphorus (2.5-4.5) mg/dL Total Bilirubin (0.2-1.3) mg/dL AST (17-59) U/L ALT (21-72) U/L Total Protein (6.3-8.2) g/dL Albumin (3.5-5.0) g/dL 07/11/16 07/11/16 07/11/16 Range/Units 04:32 04:32 04:32 WBC 15.3 H (3.8-10.6) k/uL RBC 3.64 L (4.30-5.90) m/uL Hgb 11.8 L (13.0-17.5) gm/dL Hct 36.0 L (39.0-53.0) % Plt Count 67 L (150-450) k/uL Neutrophils # 13.7 H (1.3-7.7) k/uL Lymphocytes # 0.8 L (1.0-4.8) k/uL PT (9.0-12.0) sec INR (<1.1) APTT (22.0-30.0) sec Sodium 121 L (137-145) mmol/L Potassium 5.6 H (3.5-5.1) mmol/L Chloride 94 L (98-107) mmol/L Carbon Dioxide 15 L (22-30) mmol/L BUN 46 H (9-20) mg/dL Creatinine 2.20 H (0.66-1.25) mg/dL Glucose 119 H (74-99) mg/dL POC Glucose (mg/dL) (75-99) mg/dL Plasma Lactic Acid Magdi 5.9 H* (0.7-2.0) mmol/L Calcium 7.5 L (8.4-10.2) mg/dL Phosphorus 5.8 H (2.5-4.5) mg/dL Total Bilirubin 6.6 H (0.2-1.3) mg/dL AST 4730 H (17-59) U/L ALT 4725 H (21-72) U/L Total Protein 5.2 L (6.3-8.2) g/dL Albumin 3.0 L (3.5-5.0) g/dL Microbiology - Last 24 Hours (Table) 07/08/16 21:03 Blood Culture - Preliminary Blood No Growth after 48 hours 07/09/16 02:15 Urine Culture - Final Urine,Voided Laboratory Results WBC 15.3 k/uL (3.8-10.6) H 07/11/16 04:32 RBC 3.64 m/uL (4.30-5.90) L 07/11/16 04:32 Hgb 11.8 gm/dL (13.0-17.5) L 07/11/16 04:32 Hct 36.0 % (39.0-53.0) L 07/11/16 04:32 MCV 98.8 fL (80.0-100.0) 07/11/16 04:32 MCH 32.6 pg (25.0-35.0) 07/11/16 04:32 MCHC 32.9 g/dL (31.0-37.0) 07/11/16 04:32 RDW 14.7 % (11.5-15.5) 07/11/16 04:32 Plt Count 67 k/uL (150-450) L 07/11/16 04:32 Neutrophils % 90 % 07/11/16 04:32 Neutrophils % (Manual) 92.0 % 07/10/16 05:30 Band Neutrophils % 1.0 % 07/10/16 05:30 Lymphocytes % 5 % 07/11/16 04:32 Lymphocytes % (Manual) 3.5 % 07/10/16 05:30 Monocytes % 4 % 07/11/16 04:32 Monocytes % (Manual) 3.5 % 07/10/16 05:30 Eosinophils % 0 % 07/11/16 04:32 Basophils % 0 % 07/11/16 04:32 Neutrophils # 13.7 k/uL (1.3-7.7) H 07/11/16 04:32 Neutrophils # (Manual) 23.7 k/uL (1.3-7.7) H 07/10/16 05:30 Lymphocytes # 0.8 k/uL (1.0-4.8) L 07/11/16 04:32 Lymphocytes # (Manual) 0.9 k/uL (1.0-4.8) L 07/10/16 05:30 Monocytes # 0.7 k/uL (0-1.0) 07/11/16 04:32 Monocytes # (Manual) 0.9 k/uL (0-1.0) 07/10/16 05:30 Eosinophils # 0.0 k/uL (0-0.7) 07/11/16 04:32 Basophils # 0.0 k/uL (0-0.2) 07/11/16 04:32 Nucleated RBCs 0 /100 WBC (0-0) 07/10/16 05:30 Polychromasia Present 07/10/16 05:30 Hypochromasia Slight 07/09/16 22:00 Poikilocytosis (manual Present 07/10/16 05:30 Anisocytosis (manual) Present 07/10/16 05:30 Macrocytosis Slight 07/11/16 04:32 PT 54.8 sec (9.0-12.0) H 07/11/16 04:32 INR 5.5 (<1.1) H* 07/11/16 04:32 APTT 43.9 sec (22.0-30.0) H 07/11/16 04:32 D-Dimer 3.99 mg/L FEU (<0.60) H 07/08/16 21:03 Sample Site RRAD 07/10/16 05:15 ABG pH 7.26 (7.35-7.45) L 07/10/16 05:15 ABG pCO2 20 mmHg (35-45) L* 07/10/16 05:15 ABG pO2 82 mmHg (83-108) L 07/10/16 05:15 ABG HCO3 9 mmol/L (21-25) L* 07/10/16 05:15 ABG Total CO2 9 mmol/L (19-24) L 07/10/16 05:15 ABG O2 Saturation 95.0 % (94-97) 07/10/16 05:15 ABG Base Excess -17.1 mmol/L 07/10/16 05:15 FiO2 32 % 07/10/16 05:15 Sodium 121 mmol/L (137-145) L 07/11/16 04:32 Potassium 5.6 mmol/L (3.5-5.1) H 07/11/16 04:32 Chloride 94 mmol/L (98-107) L 07/11/16 04:32 Carbon Dioxide 15 mmol/L (22-30) L 07/11/16 04:32 Anion Gap 12 mmol/L 07/11/16 04:32 BUN 46 mg/dL (9-20) H 07/11/16 04:32 Creatinine 2.20 mg/dL (0.66-1.25) H 07/11/16 04:32 Est GFR (MDRD) Af Amer 39 (>60 ml/min/1.73 sqM) 07/11/16 04:32 Est GFR (MDRD) Non-Af 32 (>60 ml/min/1.73 sqM) 07/11/16 04:32 Glucose 119 mg/dL (74-99) H 07/11/16 04:32 POC Glucose (mg/dL) 127 mg/dL (75-99) H 07/10/16 22:46 POC Glu Proof Sorter ID Lopez, Joi 07/10/16 22:46 Osmolality 285 mosm/kg (280-301) 07/10/16 17:35 Plasma Lactic Acid Magdi 5.9 mmol/L (0.7-2.0) H* 07/11/16 04:32 Calcium 7.5 mg/dL (8.4-10.2) L 07/11/16 04:32 Phosphorus 5.8 mg/dL (2.5-4.5) H 07/11/16 04:32 Magnesium 2.3 mg/dL (1.6-2.3) 07/11/16 04:32 Total Bilirubin 6.6 mg/dL (0.2-1.3) H 07/11/16 04:32 AST 4730 U/L (17-59) H 07/11/16 04:32 ALT 4725 U/L (21-72) H 07/11/16 04:32 Alkaline Phosphatase 96 U/L (38-126) 07/11/16 04:32 Total Creatine Kinase 494 U/L (55-170) H 07/08/16 21:03 CK-MB (CK-2) 5.0 ng/mL (0.0-2.4) H* 07/08/16 21:03 CK-MB (CK-2) Rel Index 1.0 07/08/16 21:03 Troponin I 0.108 ng/mL (0.000-0.034) H* 07/09/16 02:54 NT-Pro-B Natriuret Pep 91290 pg/mL 07/08/16 21:03 Total Protein 5.2 g/dL (6.3-8.2) L 07/11/16 04:32 Albumin 3.0 g/dL (3.5-5.0) L 07/11/16 04:32 Prealbumin 7 mg/dL (18-36) L 07/10/16 00:15 Amylase 42 U/L (30-110) 07/08/16 21:03 Lipase 145 U/L (23-300) 07/08/16 21:03 Urine Color Dark Red 07/09/16 02:15 Urine Appearance Turbid (Clear) 07/09/16 02:15 Urine pH 6.5 (5.0-8.0) 07/09/16 02:15 Ur Specific [place] 1.024 (1.001-1.035) 07/09/16 02:15 Urine Protein 3+ (Negative) H 07/09/16 02:15 Urine Glucose (UA) 1+ (Negative) H 07/09/16 02:15 Urine Ketones Negative (Negative) 07/09/16 02:15 Urine Blood Large (Negative) H 07/09/16 02:15 Urine Nitrite Negative (Negative) 07/09/16 02:15 Urine Bilirubin Negative (Negative) 07/09/16 02:15 Urine Urobilinogen <2.0 mg/dL (<2.0) 07/09/16 02:15 Ur Leukocyte Esterase Large (Negative) H 07/09/16 02:15 Urine RBC >182 /hpf (0-5) H 07/09/16 02:15 Urine WBC >182 /hpf (0-5) H 07/09/16 02:15 Ur Squamous Epith Cells 9 /hpf (0-4) H 07/09/16 02:15 Urine Bacteria Few /hpf (None) H 07/09/16 02:15 Urine Osmolality 326 mosm/kg (50-1400) 07/11/16 13:00 Ur Random Sodium 61 mmol/L (30-90) 07/11/16 13:00 Vancomycin Trough 15.4 ug/mL 07/11/16 04:32 Digoxin 0.5 ng/mL 07/08/16 22:00 Serum Alcohol <10 mg/dL 07/08/16 22:00 Hepatitis A IgM Ab NEGATIVE 07/10/16 00:15 Hep Bs Antigen Negative 07/10/16 00:15 Hep B Core IgM Ab NEGATIVE 07/10/16 00:15 Hep C IgG Ab Negative (Negative) 07/10/16 00:15 Blood Type B Positive 07/08/16 21:03 Blood Type Recheck B Pos 07/08/16 21:03 Antibody Screen NEGATIVE 07/08/16 21:03 Transfuse Plasma 07/11/16 07/11/16 12:20 Spec Expiration Date 07/11/2016230207/08/16 21:03 Microbiology 07/08/16 21:03 Blood Blood Culture - Preliminary No Growth after 48 hours 07/09/16 02:15 Urine,Voided Urine Culture - Final Assessment and Plan (1) Severe sepsis Narrative/Plan: 45-year-old male presents to hospital with profound weakness. Has a known history of nonischemic cardiomyopathy. At presentation there is evidence of potential congestive heart failure. Concerns for significant pneumonia with sepsis. Profound lactic acidosis with hypoperfusion. Evidence of potential cardiac injury, renal insufficiency as well as acute hepatic injury are all noted. Perfusion is improved at this point in time is being followed by pulmonary critical care. Concerns to sepsis and is on antibiotic therapy with Levaquin and vancomycin. Cultures are in process. Patient is improved. Acute hepatitis panel was requested because of the markedly abnormal liver function tests. Blood and sputum cultures are process. Lactic acidosis is now improved to 4.8. INR markedly elevated. with the elevated INR levofloxacin was discontinued and changed to meropenem. Seems to be tolerating this well. Cultures are in process. Ongoing supportive Prognosis remains poor. Status: Acute (2) Nonischemic cardiomyopathy Status: Acute (3) Lactic acidosis Status: Acute (4) Hepatitis Status: Acute
[2016-07-11] MEDS: MORPHINE SULFATE 4 MG/ML SYRINGE IV PRN (17:20)
[2016-07-11 17:41] LABS: INR 3.7 (<1.1); Partial Thromboplastin Time 35.7 sec (22.0-30.0); Prothrombin Time 36.5 sec (9.0-12.0)
[2016-07-11 17:46] LABS: Calcium 7.4 mg/dL (8.4-10.2); Potassium 4.6 mmol/L (3.5-5.1); Total Bilirubin 7.1 mg/dL (0.2-1.3); Total Protein 5.3 g/dL (6.3-8.2)
[2016-07-12] MEDS: VANCOMYCIN 1,500 MG in SODIUM CHLORIDE 0.9% 250 ML IVPB SCH ×2 (00:05→16:00)
[2016-07-12 05:40] LABS: INR 4.4 (<1.1); Prothrombin Time 43.9 sec (9.0-12.0)
[2016-07-12 05:56] LABS: Basophils % (A) 0 %; CH 32.4; CHCM 33.5; Eosinophils % (A) 0 %; HCT 33.4 % (39.0-53.0); HDW 3.28; HGB 11.4 gm/dL (13.0-17.5); Luc # (Auto) 0.11; Luc % (Auto) 1; Lymphocytes % (A) 9 %; MCH 33.2 pg (25.0-35.0); MCHC 34.1 g/dL (31.0-37.0); MCV 97.2 fL (80.0-100.0); Monocytes # (A) 0.6 k/uL (0-1.0); Monocytes % (A) 5 %; Neutrophils # (A) 9.8 k/uL (1.3-7.7); Neutrophils % (A) 85 %; RBC 3.44 m/uL (4.30-5.90); WBC 11.5 k/uL (3.8-10.6); WBC (Perox) 11.99
[2016-07-12 06:09] LABS: Calcium 7.7 mg/dL (8.4-10.2); Magnesium 2.5 mg/dL (1.6-2.3); Phosphorous 4.6 mg/dL (2.5-4.5); Potassium 4.6 mmol/L (3.5-5.1)
[2016-07-12] MEDS ORDERED: FUROSEMIDE 10 MG/ML 10 ML VIAL IV STA (08:22)
[2016-07-12] MEDS: DOCUSATE 100 MG CAP PO SCH ×2 (09:01→20:41)
[2016-07-12] MEDS: PANTOPRAZOLE 40 MG/10 ML VIAL IVP SCH (09:07)
[2016-07-12 09:19] LABS: Bilirubin, Delta 1.7 mg/dL (0.0-0.2); Total Bilirubin 8.2 mg/dL (0.2-1.3); Total Protein 5.4 g/dL (6.3-8.2)
--- NOTE | 2016-07-12 09:28 | XR ---
EXAMINATION TYPE: XR chest 1V portable DATE OF EXAM: 07/12/2016 9:22 AM COMPARISON: 07/11/2016 INDICATION: Short of breath CHF TECHNIQUE: Single frontal view of the chest is obtained. FINDINGS: The heart size is enlarged. The pulmonary vasculature is normal. Bibasilar infiltrates are present. Small left pleural effusion may be present. Electronic device over lies left chest. IMPRESSION: 1. Cardiomegaly. 2. Bibasilar infiltrates
[2016-07-12] MEDS: PANTOPRAZOLE 40 MG TABLET PO SCH (10:13)
[2016-07-12] MEDS: MEROPENEM 1 GM in SODIUM CHLORIDE 0.9% 100 ML IVPB SCH ×2 (10:13→20:42)
--- NOTE | 2016-07-12 10:49 | P.PN ---
Subjective Patient is seen in follow-up for acute kidney injury. Renal function continues to improve with creatinine down to 2.0 today. His sodium level is also up to 120 at this morning. He did receive 100 of Lasix yesterday morning in his urine output is improved. He is nonoliguric. Patient is not a reliable historian and remains somewhat confused. His oral intake is poor. He has severe cardiomyopathy with ejection fraction of 20-25% with severe pulmonary hypertension as well as mitral and tricuspid regurgitation. He is also noted to be in acute liver injury with an elevated lactic acid level. Vital signs are stable. General: The patient appeared well nourished and normally developed. HEENT: Head exam is unremarkable. Neck is without jugular venous distension. LUNGS: Lungs are clear to auscultation and percussion. Breath sounds decreased. HEART: Rate and Rhythm are regular. First and second heart sounds normal. No murmurs, rubs or gallops. ABDOMEN: Abdominal exam reveals normal bowel sounds. Non-tender and non- distended. No evidence of peritonitis. EXTREMITITES: 1+ edema. Objective - Vital Signs Vital signs: Vital Signs Temp 98.2 F 07/12/16 00:00 Pulse 117 H 07/12/16 09:30 Resp 30 H 07/12/16 09:30 BP 97/71 07/12/16 09:30 Pulse Ox 93 L 07/12/16 09:30 Intake & Output 07/11/16 07/12/16 07/12/16 18:59 06:59 18:59 Intake Total 2362.269 1234.6 200 Output Total 1785 750 350 Balance 577.269 484.6 -150 Weight 86.5 kg 84.2 kg 84.2 kg Intake: IV 1000 1200 200 Dextrose 5% in Water 1, 1000 1200 200 000 ml @ 50 mls/hr IV . Q23H LENNIE with Sodium Bicarb (1 Meq/ml) 150 ml Rx#:[id number] Intake, IV Titration 660.269 34.6 Amount Dextrose 5% in Water 1, 100 000 ml @ 50 mls/hr IV . Q23H LENNIE with Sodium Bicarb (1 Meq/ml) 150 ml Rx#:[id number] Meropenem 1 gm In Sodium 100 Chloride 0.9% 100 ml @ 200 mls/hr IVPB Q12HR LENNIE Rx#:[id number] Norepinephrin 16 mg-0.9% 210.269 34.6 Ns Pmx 16 mg In 250 ml @ Titrate IV .Q0M LENNIE Rx#: [id number] Vancomycin 1,500 mg In 250 Sodium Chloride 0.9% 250 ml @ 125 mls/hr IVPB Q16H LENNIE Rx#:[id number] Oral 210 0 Blood Product 492 Ffp 24 Cp2d Unit 308 [id number] Ffp 24 Cp2d Unit 184 [id number] Output: Urine 1785 750 350 Other: Voiding Method Indwelling Catheter Indwelling Catheter Indwelling Catheter # Bowel Movements 0 0 0 - Labs CBC & Chem 7: 07/12/16 04:30 07/12/16 04:30 Labs: Abnormal Lab Results - Last 24 Hours (Table) 07/10/16 07/11/16 07/11/16 Range/Units 05:30 17:15 17:15 WBC (3.8-10.6) k/uL RBC (4.30-5.90) m/uL Hgb (13.0-17.5) gm/dL Hct (39.0-53.0) % Plt Count 86 L (150-450) k/uL Neutrophils # (1.3-7.7) k/uL PT 36.5 H (9.0-12.0) sec APTT 35.7 H (22.0-30.0) sec Sodium 127 L (137-145) mmol/L Chloride 90 L (98-107) mmol/L Carbon Dioxide 21 L (22-30) mmol/L BUN 50 H (9-20) mg/dL Creatinine 2.21 H (0.66-1.25) mg/dL Glucose 116 H (74-99) mg/dL Plasma Lactic Acid Magdi (0.7-2.0) mmol/L Calcium 7.4 L (8.4-10.2) mg/dL Phosphorus (2.5-4.5) mg/dL Magnesium (1.6-2.3) mg/dL Total Bilirubin 7.1 H (0.2-1.3) mg/dL Conjugated Bilirubin (0.0-0.3) mg/dL Unconjugated Bilirubin (0.0-1.1) mg/dL Delta Bilirubin (0.0-0.2) mg/dL AST 3364 H (17-59) U/L ALT 3930 H (21-72) U/L Total Protein 5.3 L (6.3-8.2) g/dL Albumin 3.1 L (3.5-5.0) g/dL 07/12/16 07/12/16 07/12/16 Range/Units 04:30 04:30 04:30 WBC 11.5 H (3.8-10.6) k/uL RBC 3.44 L (4.30-5.90) m/uL Hgb 11.4 L (13.0-17.5) gm/dL Hct 33.4 L (39.0-53.0) % Plt Count 62 L (150-450) k/uL Neutrophils # 9.8 H (1.3-7.7) k/uL PT 43.9 H (9.0-12.0) sec APTT (22.0-30.0) sec Sodium 128 L (137-145) mmol/L Chloride 90 L (98-107) mmol/L Carbon Dioxide (22-30) mmol/L BUN 53 H (9-20) mg/dL Creatinine 2.00 H (0.66-1.25) mg/dL Glucose 111 H (74-99) mg/dL Plasma Lactic Acid Magdi (0.7-2.0) mmol/L Calcium 7.7 L (8.4-10.2) mg/dL Phosphorus 4.6 H (2.5-4.5) mg/dL Magnesium 2.5 H (1.6-2.3) mg/dL Total Bilirubin (0.2-1.3) mg/dL Conjugated Bilirubin (0.0-0.3) mg/dL Unconjugated Bilirubin (0.0-1.1) mg/dL Delta Bilirubin (0.0-0.2) mg/dL AST (17-59) U/L ALT (21-72) U/L Total Protein (6.3-8.2) g/dL Albumin (3.5-5.0) g/dL 07/12/16 07/12/16 Range/Units 04:30 04:31 WBC (3.8-10.6) k/uL RBC (4.30-5.90) m/uL Hgb (13.0-17.5) gm/dL Hct (39.0-53.0) % Plt Count (150-450) k/uL Neutrophils # (1.3-7.7) k/uL PT (9.0-12.0) sec APTT (22.0-30.0) sec Sodium (137-145) mmol/L Chloride (98-107) mmol/L Carbon Dioxide (22-30) mmol/L BUN (9-20) mg/dL Creatinine (0.66-1.25) mg/dL Glucose (74-99) mg/dL Plasma Lactic Acid Magdi 7.4 H* (0.7-2.0) mmol/L Calcium (8.4-10.2) mg/dL Phosphorus (2.5-4.5) mg/dL Magnesium (1.6-2.3) mg/dL Total Bilirubin 8.2 H (0.2-1.3) mg/dL Conjugated Bilirubin 1.7 H (0.0-0.3) mg/dL Unconjugated Bilirubin 4.8 H (0.0-1.1) mg/dL Delta Bilirubin 1.7 H (0.0-0.2) mg/dL AST 2578 H (17-59) U/L ALT 3853 H (21-72) U/L Total Protein 5.4 L (6.3-8.2) g/dL Albumin 3.2 L (3.5-5.0) g/dL Microbiology - Last 24 Hours (Table) 07/08/16 21:03 Blood Culture - Preliminary Blood No Growth after 72 hours Assessment and Plan Plan: Assessment: #1. Nonoliguric acute kidney injury secondary to ischemic ATN secondary to shock which is cardiogenic in nature. There is also concern for sepsis. His baseline creatinine is 1 and peaked at 2.4 this admission. It is down to 2.0 today. #2. Hypervolemic hyponatremia. Improving with diuresis. #3. Volume overload. #4. Systolic CHF with ejection fraction of 20-25% with severe pulmonary hypertension and severe mitral and tricuspid regurgitation. #5. Lactic acidosis secondary to acute liver failure. #6. Hyperkalemia secondary to metabolic acidosis and acute kidney injury. #7. Metabolic acidosis secondary to acute kidney injury as well as lactic acidosis. #8. Coumadin toxicity. INR 4.4 this morning. Plan: Discontinue sodium bicarbonate drip. For maintenance, continue normal saline at 50 mL an hour. Repeat Lasix 100 mg IV once today. Wean vasopressors as tolerated. Avoid nephrotoxic agents and hypotensive episodes. Follow-up cultures. Antibiotics per infectious disease recommendations. Monitor vancomycin levels.
--- NOTE | 2016-07-12 10:59 | PN ---
INTERVAL HISTORY: Patient continued to be lethargic, confused at the time and following simple commands. Patient is refusing to eat and taking only sips of Ensure with nurse assistance. Patient oxygenation has dropped and increased to 8 liters nasal cannula and the patient had multiple attempts for ABG draw which was unsuccessful. PHYSICAL EXAMINATION: VITAL SIGNS: Heart rate 114, respiratory rate has been ranging between 20 and 30. Blood pressure this morning is 97/71 on 1.6 mcg/kg per minute of Levophed. Saturation is currently 95% on 8 liters nasal cannula. LUNGS: Diminished bilaterally. HEART: Normal S1, S2. ABDOMEN: Soft, no tenderness, positive bowel sounds in all 4 quadrants. EXTREMITIES: Lower extremity no edema. PSYCH: As above. Imaging and labs: CBC showed stable hemoglobin at 11.4. White blood count is 11.5, and platelets stable at 62. PT, PTT, INR showed 3.7 after given fresh frozen plasma yesterday and today is back to 4.4. Sodium improved slightly to 128. Creat has improved slightly to 2.0 and glucose is ranging between 110 and 116. Lactic acid level is 7.4 this morning. Calcium 7.7. Liver enzymes has gone down from 4000 yesterday to 2000 area today including AST and ALT. Ammonia level this morning has improved to 12 and albumin level is 3.2. ASSESSMENT AND PLAN: 1. Septic shock requiring Levophed infusion. 2. Pneumonia. 3. Pleural effusion. 4. Severe electrolyte imbalance. 5. Shock liver. 6. Thrombocytopenia. 7. Elevated PTT, PT and INR. 8. Leukocytosis. 9. Lactic acidosis. 10. Acute kidney injury. PLAN: 1. Patient with worsening in his oxygen level could be related to pleural effusion versus other etiology that needs to be rule out. Attention should she be paid to ABG and possible earlier intubation to avoid cardiac arrest or further complication. Patient still awake, but not following commands. Mentation is poorly described by the nursing staff. I would like to continue monitoring. I discussed the case with Dr. Newman. Will follow-up on the ABG results and we will continue wide spectrum antibiotics. Along with the current IV fluid infusion. We will consider Dobbhoff as a tube feeding if no intubation happens over the next 24 hours. We will continue monitoring liver enzymes, kidney function and electrolyte panel. The patient carries a poor prognosis despite aggressive medical treatment.
--- NOTE | 2016-07-12 11:37 | P.PN ---
Subjective 44-year-old male patient, advanced cardiomyopathy of a nonischemic type, in addition to a previous history of chronic atrial fibrillation, alcoholism, pancreatitis, who has an AICD in place, and he is being followed up by cardiology at [facility]. The patient was last seen at [facility] few days ago. The patient has a routine appointment artery was felt to be hypotensive and dehydrated. He was given IV fluids for about 2 hours and then he was released home. Subsequently, the patient had become again short of breath and he was having dry heaves and for that reason he came into the hospital where he was found to have significant abnormalities. The patient was found to be hypotensive. At the same time was found to have severe metabolic acidosis of a anion gap type and this was essentially lactic acidosis. Urine was cloudy and 30 and a Alfonso catheter was inserted and the urinalysis quite abnormal. In addition, the patient had been Coumadin toxic and he was in acute kidney failure with a creatinine of 1.8. Overnight, the patient was given IV fluids. He received IV fluid, triple-lumen catheter was inserted and the patient was started on pressors for hypotension currently the patient's blood pressure is stable on 5 mics of levo fed for blood pressure support. Troponins were mildly positive with 0.07 and 0.1 respectively 2, proBNP level was markedly elevated at 56,000, blood gases showed severe metabolic acidosis and the CAT scan of the chest showed COPD with small better pleural effusions and there was evidence of any pulmonary embolism. The CAT scan of the abdomen and pelvis also showed small volume of abdominal ascites and the patient had hepatomegaly and evidence of right-sided heart failure. The patient was seen and evaluated this morning. He is doing well. He is alert and awake. His urine output remains low. No nausea. No vomiting. No change in mental status. No chest pain. No shortness of breath. He feels much better and improved compared to yesterday. No hemoptysis. No pleurisy. No other complaints otherwise. On 07/10/2016 the patient is still doing poorly. As mentioned earlier he is in shock and this is likely a combination of septic and cardiogenic shock. The patient developed some leukocytosis and currently is on a combination of Merrem and vancomycin as broad-spectrum antibiotic coverage. I do suspect an underlying urine checked infection with secondary septicemia. Meanwhile, the patient got resuscitated IV fluids and currently is on normal saline at the rate of 100 mL an hour and his urine output is somewhat between 25-30 mL an hour. He has developed an acute kidney injury and also an acute shock liver. Her creatinine is up to 2.2 with a potassium level of 5.9 and underlying metabolic acidosis. Also, the patient is significantly elevated liver function tests secondary to shock liver. Lactic acid levels remain elevated for the reasons mentioned above. The patient also developed coagulopathy which as mentioned could be multifactorial. He was given a total of 5 mg of vitamin K another 10 mg of vitamin K was given. His most recent blood gas show a pH of 7.26 with a pCO2 of 20 and pO2 of 82. Sodium level is down to 123. He has an anion gap metabolic acidosis. Creatinine is up to 2.4 as mentioned. And the patient is a bit uncomfortable and looks to be quite lethargic in bed. On 07/11/2016, the patient is still doing poorly. He is more confused compared to yesterday.He is not agitated. He is moving all 4 extremities and his neurologic exam is nonfocal. The patient remains in a combination of septic and cardiogenic shock. He is hypotensive still on 4 mics of levo fed for blood pressure support. He is currently on a bicarb drip running at and the net fluid balance is positive and the patient is producing approximately 20-30 mL of urine output on an hourly basis. The patient was further given a dose of Lasix 100 mg IV push per nephrology recommendation this morning. Renal function remains impaired with a creatinine of 2.2 and the sodium level of 121. Patient is afebrile. The patient on broad-spectrum antibiotics and currently is on a combination of Merrem and vancomycin. The blood cultures of been negative and the patient's white cell count is down to 15. In terms of his shock liver, the patient's LFTs remained significantly elevated. The numbers are improving and they are downtrending. The correlation profile is still abnormal with a PT of 54, INR of 5.5 and a PTT of 43. Despite his coagulopathy , there is no signs of any acute bleeding. On 07/12/2016 the patient is being seen in follow-up. Neurologically he is still the same. He is on and off confused and agitated and restless in bed. The patient as mentioned was in a combination of septic shock and cardiogenic shock and multisystem organ failure. He also suffered an acute kidney injury and a shock liver. Overall, the patient is hemodynamically being supported with few mics of levo fed for blood pressure support. His urine output is fluctuating and it's roughly is at 40 mL an hour which improved with the morning Lasix to the patient received. I give the patient 100 mg IV Lasix IV push and I kept on his maintenance fluid down to 50 mL an hour due to concerns of volume overload knowing that today's chest x-ray was getting quite congested and the patient developed bilateral pleural effusions and he was becoming more hypoxic and he was on 8 L of oxygen nasal cannula. He responded to diuretics and his urine output is up to 75 mL an hour. Meanwhile, his shock liver is improving and his LFTs are down trending at this point. He is ammonia level is nonelevated. His lactic acid is still elevated at 7.0. He is on a bicarb infusion still. The patient is still coagulopathic. He received a total of 2 units of fresh frozen plasma yesterday. INR dropped down to 3.7 and currently is up to 4.4. He is not showing any signs of bleeding at this point. His renal function is slightly better compared to yesterday and creatinine is down to 2.0. Sodium level is up to 128. No significant leukocytosis. Objective - Vital Signs Vital signs: Vital Signs Temp 98.2 F 07/12/16 00:00 Pulse 117 H 07/12/16 09:30 Resp 30 H 07/12/16 09:30 BP 97/71 07/12/16 09:30 Pulse Ox 93 L 07/12/16 09:30 Intake & Output 07/11/16 07/12/16 07/12/16 18:59 06:59 18:59 Intake Total 2362.269 1234.6 200 Output Total 1785 750 350 Balance 577.269 484.6 -150 Weight 86.5 kg 84.2 kg 84.2 kg Intake: IV 1000 1200 200 Dextrose 5% in Water 1, 1000 1200 200 000 ml @ 50 mls/hr IV . Q23H [facility] with Sodium Bicarb (1 Meq/ml) 150 ml Rx#:[id number] Intake, IV Titration 660.269 34.6 Amount Dextrose 5% in Water 1, 100 000 ml @ 50 mls/hr IV . Q23H [facility] with Sodium Bicarb (1 Meq/ml) 150 ml Rx#:[id number] Meropenem 1 gm In Sodium 100 Chloride 0.9% 100 ml @ 200 mls/hr IVPB Q12HR [facility] Rx#:[id number] Norepinephrin 16 mg-0.9% 210.269 34.6 Ns Pmx 16 mg In 250 ml @ Titrate IV .Q0M [facility] Rx#: [id number] Vancomycin 1,500 mg In 250 Sodium Chloride 0.9% 250 ml @ 125 mls/hr IVPB Q16H [facility] Rx#:[id number] Oral 210 0 Blood Product 492 Ffp 24 Cp2d Unit 308 [id number] Ffp 24 Cp2d Unit 184 [id number] Output: Urine 1785 750 350 Other: Voiding Method Indwelling Catheter Indwelling Catheter Indwelling Catheter # Bowel Movements 0 0 0 - Exam Thin and frail nonacute distress communicating awake and alert. The patient is confused. He answers simple question and follows simple commands. His neurologic exam is nonfocal and the patient is moving all 4 extremity blood any limitation. No cranial nerve deficits. Head exam was generally normal. There was no scleral icterus or corneal arcus. Mucous membranes were moist. Examination of the neck shows some mild JVDs no goiter or neck masses. No thrush no oral lesions. Mucous members are dry. Lung sounds are diminished in lung bases bilaterally otherwise there is no crackles wheezes or rhonchi. Pacemaker pocket condition over the left anterior chest which is currently intact. Heart sounds are tachycardic and the patient has a positive S1 and S2. No significant murmurs appreciated. Abdomen is slightly distended soft. No direct tenderness rebound tensile guarding. Extremities show diminished pulses in the dorsalis pedis and the posterior tibialis. The feet are cold. Diminished pulses in the popliteal area. No cyanosis. No clubbing. - Labs CBC & Chem 7: 07/12/16 04:30 07/12/16 04:30 Labs: Abnormal Lab Results - Last 24 Hours (Table) 07/10/16 07/11/16 07/11/16 Range/Units 05:30 17:15 17:15 WBC (3.8-10.6) k/uL RBC (4.30-5.90) m/uL Hgb (13.0-17.5) gm/dL Hct (39.0-53.0) % Plt Count 86 L (150-450) k/uL Neutrophils # (1.3-7.7) k/uL PT 36.5 H (9.0-12.0) sec APTT 35.7 H (22.0-30.0) sec Sodium 127 L (137-145) mmol/L Chloride 90 L (98-107) mmol/L Carbon Dioxide 21 L (22-30) mmol/L BUN 50 H (9-20) mg/dL Creatinine 2.21 H (0.66-1.25) mg/dL Glucose 116 H (74-99) mg/dL Plasma Lactic Acid Magdi (0.7-2.0) mmol/L Calcium 7.4 L (8.4-10.2) mg/dL Phosphorus (2.5-4.5) mg/dL Magnesium (1.6-2.3) mg/dL Total Bilirubin 7.1 H (0.2-1.3) mg/dL Conjugated Bilirubin (0.0-0.3) mg/dL Unconjugated Bilirubin (0.0-1.1) mg/dL Delta Bilirubin (0.0-0.2) mg/dL AST 3364 H (17-59) U/L ALT 3930 H (21-72) U/L Total Protein 5.3 L (6.3-8.2) g/dL Albumin 3.1 L (3.5-5.0) g/dL 07/12/16 07/12/16 07/12/16 Range/Units 04:30 04:30 04:30 WBC 11.5 H (3.8-10.6) k/uL RBC 3.44 L (4.30-5.90) m/uL Hgb 11.4 L (13.0-17.5) gm/dL Hct 33.4 L (39.0-53.0) % Plt Count 62 L (150-450) k/uL Neutrophils # 9.8 H (1.3-7.7) k/uL PT 43.9 H (9.0-12.0) sec APTT (22.0-30.0) sec Sodium 128 L (137-145) mmol/L Chloride 90 L (98-107) mmol/L Carbon Dioxide (22-30) mmol/L BUN 53 H (9-20) mg/dL Creatinine 2.00 H (0.66-1.25) mg/dL Glucose 111 H (74-99) mg/dL Plasma Lactic Acid Magdi (0.7-2.0) mmol/L Calcium 7.7 L (8.4-10.2) mg/dL Phosphorus 4.6 H (2.5-4.5) mg/dL Magnesium 2.5 H (1.6-2.3) mg/dL Total Bilirubin (0.2-1.3) mg/dL Conjugated Bilirubin (0.0-0.3) mg/dL Unconjugated Bilirubin (0.0-1.1) mg/dL Delta Bilirubin (0.0-0.2) mg/dL AST (17-59) U/L ALT (21-72) U/L Total Protein (6.3-8.2) g/dL Albumin (3.5-5.0) g/dL 07/12/16 07/12/16 Range/Units 04:30 04:31 WBC (3.8-10.6) k/uL RBC (4.30-5.90) m/uL Hgb (13.0-17.5) gm/dL Hct (39.0-53.0) % Plt Count (150-450) k/uL Neutrophils # (1.3-7.7) k/uL PT (9.0-12.0) sec APTT (22.0-30.0) sec Sodium (137-145) mmol/L Chloride (98-107) mmol/L Carbon Dioxide (22-30) mmol/L BUN (9-20) mg/dL Creatinine (0.66-1.25) mg/dL Glucose (74-99) mg/dL Plasma Lactic Acid Magdi 7.4 H* (0.7-2.0) mmol/L Calcium (8.4-10.2) mg/dL Phosphorus (2.5-4.5) mg/dL Magnesium (1.6-2.3) mg/dL Total Bilirubin 8.2 H (0.2-1.3) mg/dL Conjugated Bilirubin 1.7 H (0.0-0.3) mg/dL Unconjugated Bilirubin 4.8 H (0.0-1.1) mg/dL Delta Bilirubin 1.7 H (0.0-0.2) mg/dL AST 2578 H (17-59) U/L ALT 3853 H (21-72) U/L Total Protein 5.4 L (6.3-8.2) g/dL Albumin 3.2 L (3.5-5.0) g/dL Microbiology - Last 24 Hours (Table) 07/08/16 21:03 Blood Culture - Preliminary Blood No Growth after 72 hours Assessment and Plan Plan: Assessment 1 shock, likely a combination of septic and cardiogenic in nature. The decompensating facor was septic septic 2 hypotension secondary to above, currently still pressor dependent 3 severe lactic acidosis and mom most likely secondary to sepsis/hypoperfusion 4 advanced cardiomyopathy ,the patient has advanced cardiomyopathy with an ejection fraction of 20-25%, evidence of biventricular failure, evidence of severe mitral regurgitation and moderate degree of pulmonary hypertension. 5 chronic atrial fibrillation, currently in sinus tachycardia. 6 Coumadin toxicity without evidence of any acute bleeding. The coagulopathy that was observed could be also be related to an underlying DIC/shock liver 7 acute kidney injury 8 history of alcoholism 9 small and chronic bilateral lower lobe pleural effusion related to heart failure 10 history of pancreatitis 11 troponin leak secondary to above 12 anion gap metabolic acidosis 13 hyperlipidemia 14 lactic acidosis 15 altered mental status. Plan This patient's condition is comparable to yesterday. He is still having altered mentation which is essentially multifactorial and is mainly metabolic encephalopathy. I recommended cutting down the IV fluids this morning due to concerns of fluid overload. The patient or the blood better pleural effusion and was becoming progressively more hypoxic. Currently his maintenance IV fluids has been cut down to 50 mL an hour. Continue norepinephrine infusion for blood pressure support. Monitored urine output. Give Lasix 100 mg IV push. Monitor the renal function. Monitor coagulation profile. Unable to insert a NG tube for nutritional purposes based on the fact that the patient is quite agitated and he will likely pull it out and harm himself further especially that he has underlying coagulopathy. We'll keep the patient here in the ICU. We'll continue to follow. Treatment essentially supportive. There is a critical care evaluation. Prognosis poor and above-mentioned comorbidities and multisystem organ failure. He is a full code. Time with Patient: Greater than 30
[2016-07-12] MEDS: DEXTROSE 5% IN WATER 1,000 ML with SODIUM BICARB (1 MEQ/ML) 150 ML IV SCH (20:40)
[2016-07-12] MEDS: SODIUM CHLORIDE 0.9% 1,000 ML IV SCH (20:40)
[2016-07-12 23:29] LABS: Calcium 7.9 mg/dL (8.4-10.2); Magnesium 2.6 mg/dL (1.6-2.3); Potassium 4.1 mmol/L (3.5-5.1)
[2016-07-13 04:35] LABS: INR 4.3 (<1.1); Prothrombin Time 42.4 sec (9.0-12.0)
[2016-07-13 04:48] LABS: Bilirubin, Delta 2.1 mg/dL (0.0-0.2); Total Bilirubin 10.1 mg/dL (0.2-1.3); Total Protein 5.1 g/dL (6.3-8.2)
[2016-07-13] MEDS ORDERED: VANCOMYCIN TROUGH DUE 1 EACH MISC MISCELLANE ONE (07:00)
[2016-07-13] MEDS: SODIUM CHLORIDE 0.9% 1,000 ML IV SCH (07:07)
--- NOTE | 2016-07-13 07:18 | XR ---
EXAMINATION TYPE: XR chest 1V DATE OF EXAM: 07/13/2016 7:04 AM HISTORY: SOB. REFERENCE: Previous study dated 07/12/2016. FINDINGS: There is a bipolar pacemaker place on the left. The heart is enlarged. There are bilateral effusions. There is worsening bilateral airspace disease. This has the appearance of pulmonary edema. Superimposed pneumonia is not excluded. IMPRESSION: WORSENING CHANGES OF CONGESTIVE HEART FAILURE.
[2016-07-13] MEDS: PANTOPRAZOLE 40 MG TABLET PO SCH (08:37)
[2016-07-13] MEDS: DOCUSATE 100 MG CAP PO SCH (08:37)
[2016-07-13] MEDS: VANCOMYCIN 1,500 MG in SODIUM CHLORIDE 0.9% 250 ML IVPB SCH (08:41)
[2016-07-13] MEDS ORDERED: FUROSEMIDE 10 MG/ML 10 ML VIAL IV SCH ×2 (09:00→09:20)
--- NOTE | 2016-07-13 09:01 | P.PN ---
Subjective Patient is seen in follow-up for acute kidney injury. Renal function continues to improve with creatinine down to 1.6 today. His sodium level is also up to 133. He did receive 100 of Lasix yesterday morning in his urine output is improved. He is nonoliguric. Patient is not a reliable historian and remains somewhat confused. His oral intake is poor. He has severe cardiomyopathy with ejection fraction of 20-25% with severe pulmonary hypertension as well as mitral and tricuspid regurgitation. He is also noted to be in acute liver injury with an elevated lactic acid level. Vital signs are stable. General: The patient appeared well nourished and normally developed. HEENT: Head exam is unremarkable. Neck is without jugular venous distension. LUNGS: Diffuse rhonchi. Breath sounds decreased. HEART: Rate and Rhythm are regular. First and second heart sounds normal. No murmurs, rubs or gallops. ABDOMEN: Abdominal exam reveals normal bowel sounds. Non-tender and non- distended. No evidence of peritonitis. EXTREMITITES: 1+ edema. Objective - Vital Signs Vital signs: Vital Signs Temp 97.8 F 07/13/16 04:00 Pulse 110 H 07/13/16 07:00 Resp 26 H 07/13/16 07:00 BP 98/72 07/13/16 07:00 Pulse Ox 97 07/13/16 07:00 Intake & Output 07/12/16 07/13/16 07/13/16 18:59 06:59 18:59 Intake Total 900 600 50 Output Total 1510 755 45 Balance -610 -155 5 Weight 84.2 kg 88.6 kg Intake: IV 350 Dextrose 5% in Water 1, 350 000 ml @ 50 mls/hr IV . Q23H [facility] with Sodium Bicarb (1 Meq/ml) 150 ml Rx#:[id number] Intake, IV Titration 550 600 50 Amount Meropenem 1 gm In Sodium 100 Chloride 0.9% 100 ml @ 200 mls/hr IVPB Q12HR [facility] Rx#:[id number] Sodium Chloride 0.9% 1, 200 600 50 000 ml @ 50 mls/hr IV . Q20H [facility] Rx#:[id number] Vancomycin 1,500 mg In 250 Sodium Chloride 0.9% 250 ml @ 125 mls/hr IVPB Q16H [facility] Rx#:[id number] Oral 0 Tube Feeding 0 Output: Urine 1510 755 45 Other: Voiding Method Indwelling Catheter Indwelling Catheter # Bowel Movements 0 0 - Labs CBC & Chem 7: 07/12/16 04:30 07/12/16 23:00 Labs: Abnormal Lab Results - Last 24 Hours (Table) 07/12/16 07/12/16 07/13/16 Range/Units 04:30 23:00 04:15 PT 42.4 H (9.0-12.0) sec Sodium 133 L (137-145) mmol/L Chloride 93 L (98-107) mmol/L Carbon Dioxide 31 H (22-30) mmol/L BUN 58 H (9-20) mg/dL Creatinine 1.60 H (0.66-1.25) mg/dL Glucose 116 H (74-99) mg/dL Plasma Lactic Acid Magdi (0.7-2.0) mmol/L Calcium 7.9 L (8.4-10.2) mg/dL Magnesium 2.6 H (1.6-2.3) mg/dL Total Bilirubin 8.2 H (0.2-1.3) mg/dL Conjugated Bilirubin 1.7 H (0.0-0.3) mg/dL Unconjugated Bilirubin 4.8 H (0.0-1.1) mg/dL Delta Bilirubin 1.7 H (0.0-0.2) mg/dL AST 2578 H (17-59) U/L ALT 3853 H (21-72) U/L Total Protein 5.4 L (6.3-8.2) g/dL Albumin 3.2 L (3.5-5.0) g/dL 07/13/16 07/13/16 Range/Units 04:15 04:15 PT (9.0-12.0) sec Sodium (137-145) mmol/L Chloride (98-107) mmol/L Carbon Dioxide (22-30) mmol/L BUN (9-20) mg/dL Creatinine (0.66-1.25) mg/dL Glucose (74-99) mg/dL Plasma Lactic Acid Magdi 4.2 H* (0.7-2.0) mmol/L Calcium (8.4-10.2) mg/dL Magnesium (1.6-2.3) mg/dL Total Bilirubin 10.1 H (0.2-1.3) mg/dL Conjugated Bilirubin 1.7 H (0.0-0.3) mg/dL Unconjugated Bilirubin 6.3 H (0.0-1.1) mg/dL Delta Bilirubin 2.1 H (0.0-0.2) mg/dL AST 1424 H (17-59) U/L ALT 2684 H (21-72) U/L Total Protein 5.1 L (6.3-8.2) g/dL Albumin 2.9 L (3.5-5.0) g/dL Microbiology - Last 24 Hours (Table) 07/08/16 21:03 Blood Culture - Preliminary Blood No Growth after 96 hours Assessment and Plan Plan: Assessment: #1. Nonoliguric acute kidney injury secondary to ischemic ATN secondary to shock which is cardiogenic in nature. There is also concern for sepsis. His baseline creatinine is 1 and peaked at 2.4 this admission. It is down to 1.6 today. #2. Hypervolemic hyponatremia. Improving with diuresis. #3. Volume overload. #4. Systolic CHF with ejection fraction of 20-25% with severe pulmonary hypertension and severe mitral and tricuspid regurgitation. #5. Lactic acidosis secondary to acute liver failure. #6. Hyperkalemia secondary to metabolic acidosis and acute kidney injury. #7. Metabolic acidosis secondary to acute kidney injury as well as lactic acidosis. Resolved. #8. Coumadin toxicity. INR 4.3 this morning. #9. Lactic acidosis secondary to acute liver injury. Plan: For maintenance, continue normal saline at 50 mL an hour. Add Lasix 80 mg IV twice daily. Wean vasopressors as tolerated. Avoid nephrotoxic agents and hypotensive episodes. Follow-up cultures. Antibiotics per infectious disease recommendations. Monitor vancomycin levels - level 24.6 this morning.
[2016-07-13 09:44] LABS: Anion Gap 12 mmol/L; Blood Urea Nitrogen 59 mg/dL (9-20); Carbon Dioxide 28 mmol/L (22-30); Chloride 94 mmol/L (98-107); Glucose 120 mg/dL (74-99); Magnesium 2.6 mg/dL (1.6-2.3); Non-African American GFR(MDRD) 53 (>60 ml/min/1.73 sqM); Phosphorous 3.5 mg/dL (2.5-4.5); Potassium 4.1 mmol/L (3.5-5.1); Sodium 134 mmol/L (137-145)
[2016-07-13] MEDS ORDERED: FUROSEMIDE 250 MG in SODIUM CHLORIDE 0.9% 225 ML IVP SCH (10:00)
[2016-07-13 10:33] LABS: Basophils % (A) 0 %; CH 32.2; CHCM 32.4; Eosinophils % (A) 0 %; HCT 37.5 % (39.0-53.0); HDW 3.11; Hypochromasia Slight; Luc # (Auto) 0.16; Luc % (Auto) 1; Lymphocytes # (A) 0.8 k/uL (1.0-4.8); Lymphocytes % (A) 7 %; MCH 32.1 pg (25.0-35.0); MCHC 32.1 g/dL (31.0-37.0); MCV 100.2 fL (80.0-100.0); Macrocytosis Slight; Mean Platelet Volume 11.9; Monocytes # (A) 0.9 k/uL (0-1.0); Monocytes % (A) 7 %; Neutrophils # (A) 10.4 k/uL (1.3-7.7); Neutrophils % (A) 85 %; RBC 3.74 m/uL (4.30-5.90); WBC 12.2 k/uL (3.8-10.6); WBC (Perox) 12.08
[2016-07-13] MEDS: MEROPENEM 1 GM in SODIUM CHLORIDE 0.9% 100 ML IVPB SCH (11:23)
--- NOTE | 2016-07-13 13:10 | P.PN ---
Subjective Principal diagnosis: Acute septic and cardiogenic shock, acute pulmonary edema 44-year-old male patient, advanced cardiomyopathy of a nonischemic type, in addition to a previous history of chronic atrial fibrillation, alcoholism, pancreatitis, who has an AICD in place, and he is being followed up by cardiology at [facility]. The patient was last seen at [facility] few days ago. The patient has a routine appointment artery was felt to be hypotensive and dehydrated. He was given IV fluids for about 2 hours and then he was released home. Subsequently, the patient had become again short of breath and he was having dry heaves and for that reason he came into the hospital where he was found to have significant abnormalities. The patient was found to be hypotensive. At the same time was found to have severe metabolic acidosis of a anion gap type and this was essentially lactic acidosis. Urine was cloudy and 30 and a Alfonso catheter was inserted and the urinalysis quite abnormal. In addition, the patient had been Coumadin toxic and he was in acute kidney failure with a creatinine of 1.8. Overnight, the patient was given IV fluids. He received IV fluid, triple-lumen catheter was inserted and the patient was started on pressors for hypotension currently the patient's blood pressure is stable on 5 mics of levo fed for blood pressure support. Troponins were mildly positive with 0.07 and 0.1 respectively 2, proBNP level was markedly elevated at 56,000, blood gases showed severe metabolic acidosis and the CAT scan of the chest showed COPD with small better pleural effusions and there was evidence of any pulmonary embolism. The CAT scan of the abdomen and pelvis also showed small volume of abdominal ascites and the patient had hepatomegaly and evidence of right-sided heart failure. The patient was seen and evaluated this morning. He is doing well. He is alert and awake. His urine output remains low. No nausea. No vomiting. No change in mental status. No chest pain. No shortness of breath. He feels much better and improved compared to yesterday. No hemoptysis. No pleurisy. No other complaints otherwise. On 07/10/2016 the patient is still doing poorly. As mentioned earlier he is in shock and this is likely a combination of septic and cardiogenic shock. The patient developed some leukocytosis and currently is on a combination of Merrem and vancomycin as broad-spectrum antibiotic coverage. I do suspect an underlying urine checked infection with secondary septicemia. Meanwhile, the patient got resuscitated IV fluids and currently is on normal saline at the rate of 100 mL an hour and his urine output is somewhat between 25-30 mL an hour. He has developed an acute kidney injury and also an acute shock liver. Her creatinine is up to 2.2 with a potassium level of 5.9 and underlying metabolic acidosis. Also, the patient is significantly elevated liver function tests secondary to shock liver. Lactic acid levels remain elevated for the reasons mentioned above. The patient also developed coagulopathy which as mentioned could be multifactorial. He was given a total of 5 mg of vitamin K another 10 mg of vitamin K was given. His most recent blood gas show a pH of 7.26 with a pCO2 of 20 and pO2 of 82. Sodium level is down to 123. He has an anion gap metabolic acidosis. Creatinine is up to 2.4 as mentioned. And the patient is a bit uncomfortable and looks to be quite lethargic in bed. On 07/11/2016, the patient is still doing poorly. He is more confused compared to yesterday.He is not agitated. He is moving all 4 extremities and his neurologic exam is nonfocal. The patient remains in a combination of septic and cardiogenic shock. He is hypotensive still on 4 mics of levo fed for blood pressure support. He is currently on a bicarb drip running at and the net fluid balance is positive and the patient is producing approximately 20-30 mL of urine output on an hourly basis. The patient was further given a dose of Lasix 100 mg IV push per nephrology recommendation this morning. Renal function remains impaired with a creatinine of 2.2 and the sodium level of 121. Patient is afebrile. The patient on broad-spectrum antibiotics and currently is on a combination of Merrem and vancomycin. The blood cultures of been negative and the patient's white cell count is down to 15. In terms of his shock liver, the patient's LFTs remained significantly elevated. The numbers are improving and they are downtrending. The correlation profile is still abnormal with a PT of 54, INR of 5.5 and a PTT of 43. Despite his coagulopathy , there is no signs of any acute bleeding. On 07/12/2016 the patient is being seen in follow-up. Neurologically he is still the same. He is on and off confused and agitated and restless in bed. The patient as mentioned was in a combination of septic shock and cardiogenic shock and multisystem organ failure. He also suffered an acute kidney injury and a shock liver. Overall, the patient is hemodynamically being supported with few mics of levo fed for blood pressure support. His urine output is fluctuating and it's roughly is at 40 mL an hour which improved with the morning Lasix to the patient received. I give the patient 100 mg IV Lasix IV push and I kept on his maintenance fluid down to 50 mL an hour due to concerns of volume overload knowing that today's chest x-ray was getting quite congested and the patient developed bilateral pleural effusions and he was becoming more hypoxic and he was on 8 L of oxygen nasal cannula. He responded to diuretics and his urine output is up to 75 mL an hour. Meanwhile, his shock liver is improving and his LFTs are down trending at this point. He is ammonia level is nonelevated. His lactic acid is still elevated at 7.0. He is on a bicarb infusion still. The patient is still coagulopathic. He received a total of 2 units of fresh frozen plasma yesterday. INR dropped down to 3.7 and currently is up to 4.4. He is not showing any signs of bleeding at this point. His renal function is slightly better compared to yesterday and creatinine is down to 2.0. Sodium level is up to 128. No significant leukocytosis. On 07/13/2016, patient remains about the same, intermittent episodes of confusion and agitation noted. Chest x-ray shows worsening pulmonary edema picture, a shunt remain to micrograms of norepinephrine to maintain adequate blood pressure. Patient remains tachycardic, blood pressure is marginal, urine output is about 40-50 mL per hour. Today I recommended starting the patient on a Lasix drip since his chest x-ray is showing dramatic worsening compared to yesterday. WBC count is 12.2, hemoglobin is 12. INR is 4.3 BUN is 59 creatinine is 1.44 which seems to be improving. Lactic acid is down to 4.2 from 7.4 yesterday. Liver enzymes are improving ALT is down to 2684, AST is down to 1424 total bilirubin is 10.1. Objective - Vital Signs Vital signs: Vital Signs Temp 98.9 F 07/13/16 08:00 Pulse 109 H 07/13/16 11:00 Resp 07/13/16 11:00 BP 101/72 07/13/16 11:00 Pulse Ox 95 07/13/16 11:00 Intake & Output 07/12/16 07/13/16 07/13/16 18:59 06:59 18:59 Intake Total 900 600 653.781 Output Total 1510 755 905 Balance -610 -155 -251.219 Weight 84.2 kg 88.6 kg Intake: IV 350 Dextrose 5% in Water 1, 350 000 ml @ 50 mls/hr IV . Q23H [facility] with Sodium Bicarb (1 Meq/ml) 150 ml Rx#:[id number] Intake, IV Titration 550 600 653.781 Amount Meropenem 1 gm In Sodium 100 100 Chloride 0.9% 100 ml @ 200 mls/hr IVPB Q12HR [facility] Rx#:[id number] Norepinephrin 16 mg-0.9% 53.781 Ns Pmx 16 mg In 250 ml @ Titrate IV .Q0M [facility] Rx#: [id number] Sodium Chloride 0.9% 1, 200 600 250 000 ml @ 50 mls/hr IV . Q20H [facility] Rx#:[id number] Vancomycin 1,500 mg In 250 250 Sodium Chloride 0.9% 250 ml @ 125 mls/hr IVPB Q16H [facility] Rx#:[id number] Oral 0 Tube Feeding 0 Output: Urine 1510 755 905 Other: Voiding Method Indwelling Catheter Indwelling Catheter Indwelling Catheter # Bowel Movements 0 0 - Exam Thin and frail nonacute distress communicating awake and alert. The patient is confused. He answers simple question and follows simple commands. His neurologic exam is nonfocal and the patient is moving all 4 extremity blood any limitation. No cranial nerve deficits. Head exam was generally normal. There was no scleral icterus or corneal arcus. Mucous membranes were moist. Examination of the neck shows some mild JVDs no goiter or neck masses. No thrush no oral lesions. Mucous members are dry. Lung sounds are diminished in lung bases bilaterally crackles and rhonchi noted at the bases Pacemaker pocket condition over the left anterior chest which is currently intact. Heart sounds are tachycardic and the patient has a positive S1 and S2. No significant murmurs appreciated. Abdomen is slightly distended soft. No direct tenderness rebound tensile guarding. Extremities show diminished pulses in the dorsalis pedis and the posterior tibialis. The feet are cold. Diminished pulses in the popliteal area. No cyanosis. No clubbing. - Labs CBC & Chem 7: 07/13/16 04:15 07/13/16 04:15 Labs: Abnormal Lab Results - Last 24 Hours (Table) 07/12/16 07/13/16 07/13/16 Range/Units 23:00 04:15 04:15 WBC (3.8-10.6) k/uL RBC (4.30-5.90) m/uL Hgb (13.0-17.5) gm/dL Hct (39.0-53.0) % MCV (80.0-100.0) fL Plt Count (150-450) k/uL Neutrophils # (1.3-7.7) k/uL Lymphocytes # (1.0-4.8) k/uL PT 42.4 H (9.0-12.0) sec Sodium 133 L (137-145) mmol/L Chloride 93 L (98-107) mmol/L Carbon Dioxide 31 H (22-30) mmol/L BUN 58 H (9-20) mg/dL Creatinine 1.60 H (0.66-1.25) mg/dL Glucose 116 H (74-99) mg/dL Plasma Lactic Acid Magdi 4.2 H* (0.7-2.0) mmol/L Calcium 7.9 L (8.4-10.2) mg/dL Magnesium 2.6 H (1.6-2.3) mg/dL Total Bilirubin (0.2-1.3) mg/dL Conjugated Bilirubin (0.0-0.3) mg/dL Unconjugated Bilirubin (0.0-1.1) mg/dL Delta Bilirubin (0.0-0.2) mg/dL AST (17-59) U/L ALT (21-72) U/L Total Protein (6.3-8.2) g/dL Albumin (3.5-5.0) g/dL 07/13/16 07/13/16 07/13/16 Range/Units 04:15 04:15 04:15 WBC 12.2 H (3.8-10.6) k/uL RBC 3.74 L (4.30-5.90) m/uL Hgb 12.0 L (13.0-17.5) gm/dL Hct 37.5 L (39.0-53.0) % MCV 100.2 H (80.0-100.0) fL Plt Count 74 L (150-450) k/uL Neutrophils # 10.4 H (1.3-7.7) k/uL Lymphocytes # 0.8 L (1.0-4.8) k/uL PT (9.0-12.0) sec Sodium 134 L (137-145) mmol/L Chloride 94 L (98-107) mmol/L Carbon Dioxide (22-30) mmol/L BUN 59 H (9-20) mg/dL Creatinine 1.44 H (0.66-1.25) mg/dL Glucose 120 H (74-99) mg/dL Plasma Lactic Acid Magdi (0.7-2.0) mmol/L Calcium 8.0 L (8.4-10.2) mg/dL Magnesium 2.6 H (1.6-2.3) mg/dL Total Bilirubin 10.1 H (0.2-1.3) mg/dL Conjugated Bilirubin 1.7 H (0.0-0.3) mg/dL Unconjugated Bilirubin 6.3 H (0.0-1.1) mg/dL Delta Bilirubin 2.1 H (0.0-0.2) mg/dL AST 1424 H (17-59) U/L ALT 2684 H (21-72) U/L Total Protein 5.1 L (6.3-8.2) g/dL Albumin 2.9 L (3.5-5.0) g/dL Microbiology - Last 24 Hours (Table) 07/08/16 21:03 Blood Culture - Preliminary Blood No Growth after 96 hours Assessment and Plan Plan: 1 shock, likely a combination of septic and cardiogenic in nature. The decompensating facor was septic septic 2 hypotension secondary to above, currently still pressor dependent 3 severe lactic acidosis and mom most likely secondary to sepsis/hypoperfusion 4 advanced cardiomyopathy ,the patient has advanced cardiomyopathy with an ejection fraction of 20-25%, evidence of biventricular failure, evidence of severe mitral regurgitation and moderate degree of pulmonary hypertension. 5 chronic atrial fibrillation, currently in sinus tachycardia. 6 Coumadin toxicity without evidence of any acute bleeding. The coagulopathy that was observed could be also be related to an underlying DIC/shock liver 7 acute kidney injury 8 history of alcoholism 9 small and chronic bilateral lower lobe pleural effusion related to heart failure 10 history of pancreatitis 11 troponin leak secondary to above 12 anion gap metabolic acidosis 13 hyperlipidemia 14 lactic acidosis 15 altered mental status. Recommendation: Will start the patient on Lasix drip since his chest x-ray is showing worsening pulmonary edema, I will ask automobile mechanic supervisor to come back and reevaluate since we are dealing with a significant component of ischemic cardiomyopathy and congestive heart failure. Continue oxygen and titrate to keep saturation in the low 90s. Continue to monitor coagulation profile. Continue norepinephrine. Continue all supportive care measures including antibiotics, hemodynamic support, and if the patient takes a downhill course, may have to be intubated and placed on mechanical ventilation. Overall prognosis is poor considering his ischemic cardiomyopathy and LV dysfunction. We'll continue to follow closely. Critical care time is 32 minutes. Time with Patient: Greater than 30
[2016-07-13 14:27] VITALS: BMI 23.8
--- NOTE | 2016-07-13 14:40 | FL ---
EXAMINATION TYPE: FL barium swallow w video DATE OF EXAM: 07/13/2016 1:35 PM COMPARISON: NONE HISTORY: TECHNIQUE: Fluoroscopy. FINDINGS: Fluoroscopic guidance was provided for the procedure performed in conjunction with the [facility] pathology department. Please see complete report forthcoming from the Speech Pathology departmen t. Various consistencies from thin liquid to solids were administered. There is mild penetration with thin and nectar thick liquids. Cough reflex was elicited no aspiration evident. Mild pooling within the vallecula. Mild hesitancy is present. Solid consistencies could not be evaluated. IMPRESSION: 1. Transient penetration with thin and nectar thick liquids.
--- NOTE | 2016-07-13 15:36 | P.PN ---
Subjective This is a 45-year-old male one of Dr. Medrano with a previous medical history significant for nonischemic cardiomyopathy post-AICD placement, under the care of cardiology clinic at the [facility], chronic atrial fibrillation, hyperlipidemia, pancreatic that is, history of gangrenous cholecystitis post lap-chip, patient was at the [facility] cardiology clinic about a few days ago I believe was for regular follow -up and he was felt at that time the patient was dehydrated , subsequently the patient was given 1 L of normal saline over 2 hours, the patient was released home, at about the same time patient started to feel sick with low-grade temperature associated with nausea and dry heaves, patient ended up coming to the ER because of that he was found to have a severe profound lactic acidosis with severe hypertension, his bicarb level was around 8 patient was complaining of significant diarrhea over the last few days prior to the admission to the hospital, patient did receive 3 L of normal saline, and he was placed on normal saline at 100 mL an hour he was given a dose of vancomycin as well as Levaquin, urine culture as well as blood culture were obtained, and patient was admitted to the intensive care unit, he was hypotensive started on Levophed at 5 mics per minute, Dr. Newman saw the patient and he was accepted to the intensive care unit. 07/10: WBC is increased to 25.5 and platelet count currently at 86. INR is at 6.7 and he is status post vitamin K 5 mg 2 doses. The third dose of vitamin K has been ordered today. Electrolytes are worsened with sodium of 123, potassium 5.9. CO2 is 10. BUN 40 creatinine 2.4 which has increased and consult added for Dr. Monte. Liver function tests are all higher today. Pre- albumin was 7. His hepatitis panel was negative. He continues to be hypotensive and is on levo fed at 8 g. Zofran has been added for nausea. Regarding thrombocytopenia, Pepcid has been changed to Protonix and Dr. Paz is changed Zosyn to meropenem. 07/13: Patient continued to do poorly over the weekend with borderline urine output, need for vasopressors. He was continued on meropenem and vancomycin. He also received high-dose Lasix IV push with increased urine output. His ammonia level was not elevated. He did receive 2 units of fresh frozen plasma for INR 5.5 and repeat was 3.7. He did not show any signs of bleeding. Today, patient is very confused. Dr. Archibald has started him on a Lasix drip. Repeat chest x-ray showing worsening changes of congestive heart failure. He is continued on norepinephrine. INR is at 4.3. Kidney function is slightly improved. Lactic acid is down to 4.2. Liver function tests continue to be elevated. We have added in consults for Dr. Carpenter and Dr. Au regarding hemolytic jaundice. He has been made nothing by mouth due to difficulties swallowing and modified barium swallow ordered which revealed transient penetration with thin and nectar thick liquids. Speech therapy has recommended pured diet with thin liquids, direct supervision, chewing exercises, sitting upright, no straws, liquids from a spoon. 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. Objective - Vital Signs Vital signs: Vital Signs Temp 98.9 F 07/13/16 08:00 Pulse 114 H 07/13/16 10:00 Resp 28 H 07/13/16 10:00 BP 94/75 07/13/16 10:00 Pulse Ox 93 L 07/13/16 10:00 Intake & Output 07/12/16 07/13/16 07/13/16 18:59 06:59 18:59 Intake Total 900 600 603.781 Output Total 1510 755 380 Balance -610 -155 223.781 Weight 84.2 kg 88.6 kg Intake: IV 350 Dextrose 5% in Water 1, 350 000 ml @ 50 mls/hr IV . Q23H [facility] with Sodium Bicarb (1 Meq/ml) 150 ml Rx#:[id number] Intake, IV Titration 550 600 603.781 Amount Meropenem 1 gm In Sodium 100 100 Chloride 0.9% 100 ml @ 200 mls/hr IVPB Q12HR [facility] Rx#:[id number] Norepinephrin 16 mg-0.9% 53.781 Ns Pmx 16 mg In 250 ml @ Titrate IV .Q0M [facility] Rx#: [id number] Sodium Chloride 0.9% 1, 200 600 200 000 ml @ 50 mls/hr IV . Q20H [facility] Rx#:[id number] Vancomycin 1,500 mg In 250 250 Sodium Chloride 0.9% 250 ml @ 125 mls/hr IVPB Q16H [facility] Rx#:[id number] Oral 0 Tube Feeding 0 Output: Urine 1510 755 380 Other: Voiding Method Indwelling Catheter Indwelling Catheter Indwelling Catheter # Bowel Movements 0 0 - Exam General appearance: mild distress, thin - EENT Eyes: anicteric sclerae, EOMI, PERRLA, no ptosis, no scleral icterus, normal appearance ENT: hearing grossly normal, normal oropharynx, no thrush Ears: bilateral: normal - Neck Neck: no lymphadenopathy, normal ROM, no rigidity, no stridor, no thyromegaly Carotids: bilateral: upstroke normal Thyroid: bilateral: normal size - Respiratory Respiratory: bilateral: diminished, negative: dullness, rales, rhonchi, wheezing , prolonged expiration - Cardiovascular Rhythm: irregularly irregular Heart sounds: normal: S1, S2 Abnormal Heart Sounds: systolic murmur, no diastolic murmur, no rub, S3 Gallop, no click - Gastrointestinal General gastrointestinal: normal bowel sounds, soft, no splenomegaly, no tenderness, no umbilical hernia, no ventral hernia (Bilateral direct inguinal hernia) - Integumentary Integumentary: normal, normal turgor - Neurologic Neurologic: CNII-XII intact - Musculoskeletal Musculoskeletal: generalized weakness, strength equal bilaterally - Psychiatric Psychiatric: no A&O x's 3, no appropriate affect, intact judgment & insight - Labs CBC & Chem 7: 07/13/16 04:15 07/13/16 04:15 Labs: Abnormal Lab Results - Last 24 Hours (Table) 07/12/16 07/13/16 07/13/16 Range/Units 23:00 04:15 04:15 WBC (3.8-10.6) k/uL RBC (4.30-5.90) m/uL Hgb (13.0-17.5) gm/dL Hct (39.0-53.0) % MCV (80.0-100.0) fL Plt Count (150-450) k/uL Neutrophils # (1.3-7.7) k/uL Lymphocytes # (1.0-4.8) k/uL PT 42.4 H (9.0-12.0) sec Sodium 133 L (137-145) mmol/L Chloride 93 L (98-107) mmol/L Carbon Dioxide 31 H (22-30) mmol/L BUN 58 H (9-20) mg/dL Creatinine 1.60 H (0.66-1.25) mg/dL Glucose 116 H (74-99) mg/dL Plasma Lactic Acid Magdi 4.2 H* (0.7-2.0) mmol/L Calcium 7.9 L (8.4-10.2) mg/dL Magnesium 2.6 H (1.6-2.3) mg/dL Total Bilirubin (0.2-1.3) mg/dL Conjugated Bilirubin (0.0-0.3) mg/dL Unconjugated Bilirubin (0.0-1.1) mg/dL Delta Bilirubin (0.0-0.2) mg/dL AST (17-59) U/L ALT (21-72) U/L Total Protein (6.3-8.2) g/dL Albumin (3.5-5.0) g/dL 07/13/16 07/13/16 07/13/16 Range/Units 04:15 04:15 04:15 WBC 12.2 H (3.8-10.6) k/uL RBC 3.74 L (4.30-5.90) m/uL Hgb 12.0 L (13.0-17.5) gm/dL Hct 37.5 L (39.0-53.0) % MCV 100.2 H (80.0-100.0) fL Plt Count 74 L (150-450) k/uL Neutrophils # 10.4 H (1.3-7.7) k/uL Lymphocytes # 0.8 L (1.0-4.8) k/uL PT (9.0-12.0) sec Sodium 134 L (137-145) mmol/L Chloride 94 L (98-107) mmol/L Carbon Dioxide (22-30) mmol/L BUN 59 H (9-20) mg/dL Creatinine 1.44 H (0.66-1.25) mg/dL Glucose 120 H (74-99) mg/dL Plasma Lactic Acid Magdi (0.7-2.0) mmol/L Calcium 8.0 L (8.4-10.2) mg/dL Magnesium 2.6 H (1.6-2.3) mg/dL Total Bilirubin 10.1 H (0.2-1.3) mg/dL Conjugated Bilirubin 1.7 H (0.0-0.3) mg/dL Unconjugated Bilirubin 6.3 H (0.0-1.1) mg/dL Delta Bilirubin 2.1 H (0.0-0.2) mg/dL AST 1424 H (17-59) U/L ALT 2684 H (21-72) U/L Total Protein 5.1 L (6.3-8.2) g/dL Albumin 2.9 L (3.5-5.0) g/dL Microbiology - Last 24 Hours (Table) 07/08/16 21:03 Blood Culture - Preliminary Blood No Growth after 96 hours Assessment and Plan Plan: 1. Septic shock and cardiogenic shock and multiorgan failure with acute kidney injury, shock liver. The likely source is urinary tract infection, continue IV fluid resuscitation with normal saline 100 mL an hour, vancomycin, meropenem, norepinephrine, ICU consult, monitor the patient very closely, check stool for C. diff toxins a and B, monitor the patient for significant severe nonischemic cardiopathy. 2. Acute kidney injury with profound metabolic acidosis due to lactic acidosis. Continue IV fluid resuscitation, monitor CMP, lactic acid, monitor magnesium or phosphorus. Consult with nephrology 3. Hypercoagulopathy secondary to Coumadin toxicity and sepsis. Monitor the patient PT and INR in the next 24 hours there is no obvious bleeding. Vitamin K. 4. Severe lactic acidosis. Continue IV fluid resuscitation, continue norepinephrine drip, continue IV antibiotic, repeat lactic acid next 6 hours. 5. Severe nonischemic cardiomyopathy with mild troponin leak thought to be due to septic shock and demand ischemia. Monitor the patient very closely. 6. History of chronic pancreatitis in the past due to alcoholism. Patient had quit alcohol in 2007. 7. History of gangrenous cholecystitis post cholecystectomy. 8. Bilateral direct inguinal hernias. Day to follow-up with general surgery as an outpatient with the patient is better. 9. DVT prophylaxis. Bilateral knee-high JUDY hose and SCDs. 10. GI prophylaxis. Continue Pepcid 20 mg push every 12 hours. 11. Thrombocytopenia secondary to sepsis. Pepcid changed to Protonix, Zosyn changed to meropenem. Continue to monitor. Prognosis guarded Impression and plan of care have been directed as dictated by the signing physician. Pamela Lynn nurse practitioner acting as scribe for signing physician.
[2016-07-13 16:39] VITALS: TEMP 98.5
[2016-07-13 18:58] VITALS: BP 99/69; PULSE 97; RESP 21
--- NOTE | 2016-07-13 19:30 | P.PN ---
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 He relates occurred after some type of infection years ago. Follows at the [facility] heart failure, cardiac support team. He relates this is an ongoing smoker has not been a candidate for any type of left ventricular assist device or transplant. He does have arrhythmia and has a AICD in place. Patient relates that he has markedly worsened his status over the last short period of time. Becoming much more short of breath and weak. He also developed nausea and emesis. At presentation evidence of hypotension, profound lactic acidosis. Potential urinary tract infection and pneumonia. As well as alteration of his renal status with acute renal failure. With resuscitation is improving but there is also concerns to elevated BNP and troponins. Markedly abnormal liver function tests were also noted. There is been a mild improvement of his acidosis. However continues to have evidence of hepatic failure, acute renal failure, and hypotension. He is regaining ability of an appetite and is able to drink some protein supplement. He is denying nausea or emesis. Does feel very weak overall. Cardiology has evaluated and will transfer to [facility] Objective - Vital Signs Vital signs: Vital Signs Temp 98.5 F 07/13/16 16:00 Pulse 97 07/13/16 18:45 Resp 21 07/13/16 18:45 BP 99/69 07/13/16 18:30 Pulse Ox 99 07/13/16 18:45 Intake & Output 07/13/16 07/13/16 07/14/16 06:59 18:59 06:59 Intake Total 600 1083.781 60 Output Total 755 4205 450 Balance -155 -3121.219 -390 Weight 88.6 kg 88.6 kg Intake: Intake, IV Titration 600 1083.781 60 Amount Furosemide 250 mg In 80 10 Sodium Chloride 0.9% 225 ml @ 10 MG/HR 10 mls/hr IVP .Q24H LENNIE Rx#: [id number] Meropenem 1 gm In Sodium 100 Chloride 0.9% 100 ml @ 200 mls/hr IVPB Q12HR LENNIE Rx#:[id number] Norepinephrin 16 mg-0.9% 53.781 Ns Pmx 16 mg In 250 ml @ Titrate IV .Q0M LENNIE Rx#: [id number] Sodium Chloride 0.9% 1, 600 600 50 000 ml @ 50 mls/hr IV . Q20H LENNIE Rx#:[id number] Vancomycin 1,500 mg In 250 Sodium Chloride 0.9% 250 ml @ 125 mls/hr IVPB Q16H LENNIE Rx#:[id number] Oral 0 Tube Feeding 0 Output: Urine 755 4205 450 Other: Voiding Method Indwelling Catheter Indwelling Catheter # Bowel Movements 0 - Exam 45-year-old male who looks much older than his stated age. He is a very thin nearly cachectic build. Poor hygiene. HEENT:icteric ,conjunctiva are pink and moist nasal mucosa grossly intact without significant lesions, there is no thrush. Very poor dentition but no thrush Neck: The neck is supple without significant lymphadenopathy or thyromegaly. Lungs: Symmetrical air entry with evidence of crackles throughout the lung olivas. Bibasilar crackles are heard. Heart: Irregular with an audible S1 and S2 positive S4 2/6 Tollett murmur left sternal border the radius to the axillas heard. PMI is nondisplaced. Abdomen: Positive bowel sounds soft and nontender without palpable masses or organomegaly. There was no guarding or rebound. Extremities: Extremities have some generalized edema. Lower extremities have 2 + edema. No open lesions are seen Neuro: Awake alert oriented to person place and time. There are no acute new gross focal sensory motor deficits. - Labs CBC & Chem 7: 07/13/16 04:15 07/13/16 04:15 Labs: Abnormal Lab Results - Last 24 Hours (Table) 07/12/16 07/13/16 07/13/16 Range/Units 23:00 04:15 04:15 WBC (3.8-10.6) k/uL RBC (4.30-5.90) m/uL Hgb (13.0-17.5) gm/dL Hct (39.0-53.0) % MCV (80.0-100.0) fL Plt Count (150-450) k/uL Neutrophils # (1.3-7.7) k/uL Lymphocytes # (1.0-4.8) k/uL PT 42.4 H (9.0-12.0) sec Sodium 133 L (137-145) mmol/L Chloride 93 L (98-107) mmol/L Carbon Dioxide 31 H (22-30) mmol/L BUN 58 H (9-20) mg/dL Creatinine 1.60 H (0.66-1.25) mg/dL Glucose 116 H (74-99) mg/dL Plasma Lactic Acid Magdi 4.2 H* (0.7-2.0) mmol/L Calcium 7.9 L (8.4-10.2) mg/dL Magnesium 2.6 H (1.6-2.3) mg/dL Total Bilirubin (0.2-1.3) mg/dL Conjugated Bilirubin (0.0-0.3) mg/dL Unconjugated Bilirubin (0.0-1.1) mg/dL Delta Bilirubin (0.0-0.2) mg/dL AST (17-59) U/L ALT (21-72) U/L Total Protein (6.3-8.2) g/dL Albumin (3.5-5.0) g/dL 07/13/16 07/13/16 07/13/16 Range/Units 04:15 04:15 04:15 WBC 12.2 H (3.8-10.6) k/uL RBC 3.74 L (4.30-5.90) m/uL Hgb 12.0 L (13.0-17.5) gm/dL Hct 37.5 L (39.0-53.0) % MCV 100.2 H (80.0-100.0) fL Plt Count 74 L (150-450) k/uL Neutrophils # 10.4 H (1.3-7.7) k/uL Lymphocytes # 0.8 L (1.0-4.8) k/uL PT (9.0-12.0) sec Sodium 134 L (137-145) mmol/L Chloride 94 L (98-107) mmol/L Carbon Dioxide (22-30) mmol/L BUN 59 H (9-20) mg/dL Creatinine 1.44 H (0.66-1.25) mg/dL Glucose 120 H (74-99) mg/dL Plasma Lactic Acid Magdi (0.7-2.0) mmol/L Calcium 8.0 L (8.4-10.2) mg/dL Magnesium 2.6 H (1.6-2.3) mg/dL Total Bilirubin 10.1 H (0.2-1.3) mg/dL Conjugated Bilirubin 1.7 H (0.0-0.3) mg/dL Unconjugated Bilirubin 6.3 H (0.0-1.1) mg/dL Delta Bilirubin 2.1 H (0.0-0.2) mg/dL AST 1424 H (17-59) U/L ALT 2684 H (21-72) U/L Total Protein 5.1 L (6.3-8.2) g/dL Albumin 2.9 L (3.5-5.0) g/dL Microbiology - Last 24 Hours (Table) 07/08/16 21:03 Blood Culture - Preliminary Blood No Growth after 96 hours Laboratory Results WBC 12.2 k/uL (3.8-10.6) H 07/13/16 04:15 RBC 3.74 m/uL (4.30-5.90) L 07/13/16 04:15 Hgb 12.0 gm/dL (13.0-17.5) L 07/13/16 04:15 Hct 37.5 % (39.0-53.0) L 07/13/16 04:15 MCV 100.2 fL (80.0-100.0) H 07/13/16 04:15 MCH 32.1 pg (25.0-35.0) 07/13/16 04:15 MCHC 32.1 g/dL (31.0-37.0) 07/13/16 04:15 RDW 15.0 % (11.5-15.5) 07/13/16 04:15 Plt Count 74 k/uL (150-450) L 07/13/16 04:15 Neutrophils % 85 % 07/13/16 04:15 Neutrophils % (Manual) 92.0 % 07/10/16 05:30 Band Neutrophils % 1.0 % 07/10/16 05:30 Lymphocytes % 7 % 07/13/16 04:15 Lymphocytes % (Manual) 3.5 % 07/10/16 05:30 Monocytes % 7 % 07/13/16 04:15 Monocytes % (Manual) 3.5 % 07/10/16 05:30 Eosinophils % 0 % 07/13/16 04:15 Basophils % 0 % 07/13/16 04:15 Neutrophils # 10.4 k/uL (1.3-7.7) H 07/13/16 04:15 Neutrophils # (Manual) 23.7 k/uL (1.3-7.7) H 07/10/16 05:30 Lymphocytes # 0.8 k/uL (1.0-4.8) L 07/13/16 04:15 Lymphocytes # (Manual) 0.9 k/uL (1.0-4.8) L 07/10/16 05:30 Monocytes # 0.9 k/uL (0-1.0) 07/13/16 04:15 Monocytes # (Manual) 0.9 k/uL (0-1.0) 07/10/16 05:30 Eosinophils # 0.0 k/uL (0-0.7) 07/13/16 04:15 Basophils # 0.0 k/uL (0-0.2) 07/13/16 04:15 Nucleated RBCs 0 /100 WBC (0-0) 07/10/16 05:30 Polychromasia Present 07/10/16 05:30 Hypochromasia Slight 07/13/16 04:15 Poikilocytosis (manual Present 07/10/16 05:30 Anisocytosis (manual) Present 07/10/16 05:30 Macrocytosis Slight 07/13/16 04:15 PT 42.4 sec (9.0-12.0) H 07/13/16 04:15 INR 4.3 (<1.1) 07/13/16 04:15 APTT 35.7 sec (22.0-30.0) H 07/11/16 17:15 D-Dimer 3.99 mg/L FEU (<0.60) H 07/08/16 21:03 Sample Site RRAD 07/10/16 05:15 ABG pH 7.26 (7.35-7.45) L 07/10/16 05:15 ABG pCO2 20 mmHg (35-45) L* 07/10/16 05:15 ABG pO2 82 mmHg (83-108) L 07/10/16 05:15 ABG HCO3 9 mmol/L (21-25) L* 07/10/16 05:15 ABG Total CO2 9 mmol/L (19-24) L 07/10/16 05:15 ABG O2 Saturation 95.0 % (94-97) 07/10/16 05:15 ABG Base Excess -17.1 mmol/L 07/10/16 05:15 FiO2 32 % 07/10/16 05:15 Sodium 134 mmol/L (137-145) L 07/13/16 04:15 Potassium 4.1 mmol/L (3.5-5.1) 07/13/16 04:15 Chloride 94 mmol/L (98-107) L 07/13/16 04:15 Carbon Dioxide 28 mmol/L (22-30) 07/13/16 04:15 Anion Gap 12 mmol/L 07/13/16 04:15 BUN 59 mg/dL (9-20) H 07/13/16 04:15 Creatinine 1.44 mg/dL (0.66-1.25) H 07/13/16 04:15 Est GFR (MDRD) Af Amer >60 (>60 ml/min/1.73 sqM) 07/13/16 04:15 Est GFR (MDRD) Non-Af 53 (>60 ml/min/1.73 sqM) 07/13/16 04:15 Glucose 120 mg/dL (74-99) H 07/13/16 04:15 POC Glucose (mg/dL) 127 mg/dL (75-99) H 07/10/16 22:46 POC Glu Copywriting Intern ID Joi Lopez 07/10/16 22:46 Osmolality 285 mosm/kg (280-301) 07/10/16 17:35 Plasma Lactic Acid Magdi 4.2 mmol/L (0.7-2.0) H* 07/13/16 04:15 Calcium 8.0 mg/dL (8.4-10.2) L 07/13/16 04:15 Phosphorus 3.5 mg/dL (2.5-4.5) 07/13/16 04:15 Magnesium 2.6 mg/dL (1.6-2.3) H 07/13/16 04:15 Total Bilirubin 10.1 mg/dL (0.2-1.3) H 07/13/16 04:15 Conjugated Bilirubin 1.7 mg/dL (0.0-0.3) H 07/13/16 04:15 Unconjugated Bilirubin 6.3 mg/dL (0.0-1.1) H 07/13/16 04:15 Delta Bilirubin 2.1 mg/dL (0.0-0.2) H 07/13/16 04:15 AST 1424 U/L (17-59) H 07/13/16 04:15 ALT 2684 U/L (21-72) H 07/13/16 04:15 Alkaline Phosphatase 101 U/L (38-126) 07/13/16 04:15 Ammonia 12 umol/L (<30) 07/12/16 08:35 Total Creatine Kinase 494 U/L (55-170) H 07/08/16 21:03 CK-MB (CK-2) 5.0 ng/mL (0.0-2.4) H* 07/08/16 21:03 CK-MB (CK-2) Rel Index 1.0 07/08/16 21:03 Troponin I 0.108 ng/mL (0.000-0.034) H* 07/09/16 02:54 NT-Pro-B Natriuret Pep 89855 pg/mL 07/08/16 21:03 Total Protein 5.1 g/dL (6.3-8.2) L 07/13/16 04:15 Albumin 2.9 g/dL (3.5-5.0) L 07/13/16 04:15 Prealbumin 7 mg/dL (18-36) L 07/10/16 00:15 Amylase 42 U/L (30-110) 07/08/16 21:03 Lipase 145 U/L (23-300) 07/08/16 21:03 Urine Color Dark Red 07/09/16 02:15 Urine Appearance Turbid (Clear) 07/09/16 02:15 Urine pH 6.5 (5.0-8.0) 07/09/16 02:15 Ur Specific Mammoth 1.024 (1.001-1.035) 07/09/16 02:15 Urine Protein 3+ (Negative) H 07/09/16 02:15 Urine Glucose (UA) 1+ (Negative) H 07/09/16 02:15 Urine Ketones Negative (Negative) 07/09/16 02:15 Urine Blood Large (Negative) H 07/09/16 02:15 Urine Nitrite Negative (Negative) 07/09/16 02:15 Urine Bilirubin Negative (Negative) 07/09/16 02:15 Urine Urobilinogen <2.0 mg/dL (<2.0) 07/09/16 02:15 Ur Leukocyte Esterase Large (Negative) H 07/09/16 02:15 Urine RBC >182 /hpf (0-5) H 07/09/16 02:15 Urine WBC >182 /hpf (0-5) H 07/09/16 02:15 Ur Squamous Epith Cells 9 /hpf (0-4) H 07/09/16 02:15 Urine Bacteria Few /hpf (None) H 07/09/16 02:15 Urine Osmolality 326 mosm/kg (50-1400) 07/11/16 13:00 Ur Random Sodium 61 mmol/L (30-90) 07/11/16 13:00 Vancomycin Trough 24.6 ug/mL 07/13/16 04:15 Digoxin 0.5 ng/mL 07/08/16 22:00 Serum Alcohol <10 mg/dL 07/08/16 22:00 Hepatitis A IgM Ab NEGATIVE 07/10/16 00:15 Hep Bs Antigen Negative 07/10/16 00:15 Hep B Core IgM Ab NEGATIVE 07/10/16 00:15 Hep C IgG Ab Negative (Negative) 07/10/16 00:15 Urine Legionella Ag Not detected (Not detected) 07/10/16 00:15 Blood Type B Positive 07/08/16 21:03 Blood Type Recheck B Pos 07/08/16 21:03 Antibody Screen NEGATIVE 07/08/16 21:03 Transfuse Plasma 07/11/16 07/11/16 12:20 Spec Expiration Date 07/11/2016 - 230207/08/16 21:03 Microbiology 07/08/16 21:03 Blood Blood Culture - Preliminary No Growth after 96 hours 07/09/16 02:15 Urine,Voided Urine Culture - Final Assessment and Plan (1) Severe sepsis Narrative/Plan: 45-year-old male presents to hospital with profound weakness. Has a known history of nonischemic cardiomyopathy. At presentation there is evidence of potential congestive heart failure. Concerns for significant pneumonia with sepsis. Profound lactic acidosis with hypoperfusion. Evidence of potential cardiac injury, renal insufficiency as well as acute hepatic injury are all noted. Perfusion is improved at this point in time is being followed by pulmonary critical care. Concerns to sepsis and is on antibiotic therapy with Levaquin and vancomycin. Cultures are in process. Patient is improved. Acute hepatitis panel was requested because of the markedly abnormal liver function tests. Blood and sputum cultures are process. Lactic acidosis is now improved to 4.8. INR markedly elevated. with the elevated INR levofloxacin was discontinued and changed to meropenem. Seems to be tolerating this well. Cultures are negative so far. Transfer to [facility] Status: Acute (2) Nonischemic cardiomyopathy Status: Acute (3) Lactic acidosis Status: Acute (4) Hepatitis Status: Acute
--- NOTE | 2016-07-17 16:02 | P.DS ---
Providers Date of admission: 07/09/16 03:07 Expected date of discharge: 07/13/16 Attending physician: Jaya Estrella Consults: 07/09/16 03:07 Consult Physician Routine Consulting Provider: Juve Paz Consult Reason/Comments: Severe sepsis, UTI Do you want consulting provider notified?: Yes Consult Physician Routine Consulting Provider: Martha Smith Consult Reason/Comments: cardiomyopathy patient, ICU. Do you want consulting provider notified?: Yes Consult Physician Stat Consulting Provider: Mckenna Newman Consult Reason/Comments: Severe sepsis. ICU patient. Do you want consulting provider notified?: Already Contacted 07/10/16 08:55 Consult Physician Routine Consulting Provider: Tony Monte Consult Reason/Comments: KATY Do you want consulting provider notified?: Yes 07/13/16 10:54 Consult Physician Routine Consulting Provider: Fabrizio Carpenter Consult Reason/Comments: hemolytic jaundice Do you want consulting provider notified?: Yes Consult Physician Routine Consulting Provider: Agustin Au Consult Reason/Comments: hemolytic jaundice Do you want consulting provider notified?: Yes Primary care physician: Nahun Medrano [facility] Course: This is a 45-year-old male one of Dr. Medrano with a previous medical history significant for nonischemic cardiomyopathy post-AICD placement, under the care of cardiology clinic at the [facility], chronic atrial fibrillation, hyperlipidemia, pancreatic that is, history of gangrenous cholecystitis post lap-chip, patient was at the [facility] cardiology clinic about a few days ago I believe was for regular follow -up and he was felt at that time the patient was dehydrated , subsequently the patient was given 1 L of normal saline over 2 hours, the patient was released home, at about the same time patient started to feel sick with low-grade temperature associated with nausea and dry heaves, patient ended up coming to the ER because of that he was found to have a severe profound lactic acidosis with severe hypertension, his bicarb level was around 8 patient was complaining of significant diarrhea over the last few days prior to the admission to the hospital, patient did receive 3 L of normal saline, and he was placed on normal saline at 100 mL an hour he was given a dose of vancomycin as well as Levaquin, urine culture as well as blood culture were obtained, and patient was admitted to the intensive care unit, he was hypotensive started on Levophed at 5 mics per minute, Dr. Newman saw the patient and he was accepted to the intensive care unit. 07/10: WBC is increased to 25.5 and platelet count currently at 86. INR is at 6.7 and he is status post vitamin K 5 mg 2 doses. The third dose of vitamin K has been ordered today. Electrolytes are worsened with sodium of 123, potassium 5.9. CO2 is 10. BUN 40 creatinine 2.4 which has increased and consult added for Dr. Monte. Liver function tests are all higher today. Pre- albumin was 7. His hepatitis panel was negative. He continues to be hypotensive and is on levo fed at 8 g. Zofran has been added for nausea. Regarding thrombocytopenia, Pepcid has been changed to Protonix and Dr. Paz is changed Zosyn to meropenem. 07/13: Patient continued to do poorly over the weekend with borderline urine output, need for vasopressors. He was continued on meropenem and vancomycin. He also received high-dose Lasix IV push with increased urine output. His ammonia level was not elevated. He did receive 2 units of fresh frozen plasma for INR 5.5 and repeat was 3.7. He did not show any signs of bleeding. Today, patient is very confused. Dr. Archibald has started him on a Lasix drip. Repeat chest x-ray showing worsening changes of congestive heart failure. He is continued on norepinephrine. INR is at 4.3. Kidney function is slightly improved. Lactic acid is down to 4.2. Liver function tests continue to be elevated. We have added in consults for Dr. Carpenter and Dr. Au regarding hemolytic jaundice. He has been made nothing by mouth due to difficulties swallowing and modified barium swallow ordered which revealed transient penetration with thin and nectar thick liquids. Speech therapy has recommended pured diet with thin liquids, direct supervision, chewing exercises, sitting upright, no straws, liquids from a spoon. Family is asking whether patient should be transferred to his door maker [facility]. Patient was transferred to [facility] on the evening of July 13. Discharge diagnoses: 1. Septic shock and cardiogenic shock and multiorgan failure with acute kidney injury, shock liver. The likely source is pneumonia with significant severe nonischemic cardiopathy. 2. Acute kidney injury with profound metabolic acidosis due to lactic acidosis. 3. Hypercoagulopathy secondary to Coumadin toxicity and sepsis. 4. Severe lactic acidosis. 5. Severe nonischemic cardiomyopathy with mild troponin leak thought to be due to septic shock and demand ischemia. 6. History of chronic pancreatitis in the past due to alcoholism. Patient had quit alcohol in 2007. 7. History of gangrenous cholecystitis post cholecystectomy. 8. Bilateral direct inguinal hernias. 9. Thrombocytopenia secondary to sepsis. Prognosis guarded Impression and plan of care have been directed as dictated by the signing physician. Pamela Lynn nurse practitioner acting as scribe for signing physician. Patient Condition at Discharge: Critical Plan - Discharge Summary Discharge Medication List Carvedilol [Coreg] 6.25 mg PO BID 07/25/15 [History] Lisinopril [Prinivil] 2.5 mg PO DAILY 07/25/15 [History] Warfarin [Coumadin] 10 mg PO MOWE 07/25/15 [History] Cetirizine HCl [Zyrtec] 10 mg PO DAILY 07/09/16 [History] Digoxin [Lanoxin] 125 mcg PO DAILY 07/09/16 [History] Warfarin [Coumadin] 7.5 mg PO SUTUTHFRSA 07/09/16 [History] Follow up Appointment(s)/Referral(s): Nahun Medrano DO [Primary Care Provider] - 1-2 days Discharge Disposition: TRANSFER TO [facility]ORT [facility]
== END 2016-07-13 19:10 | disposition short-term general hospital (02) | DRG 871 ==
LOC: EC 20:59 → 6ICU 07-09 03:07
PROVIDERS: ADMIT Internal Medicine; ATTEND Internal Medicine
PROC: 06HM33Z Insertion of Infusion Device into Right Femoral Vein, Percutaneous Approach (ICD-10-PCS; principal; 2016-07-08)
DX: A41.9 Sepsis, unspecified organism (principal); J18.9 Pneumonia, unspecified organism; K72.00 Acute and subacute hepatic failure without coma; N17.0 Acute kidney failure with tubular necrosis; R57.0 Cardiogenic shock; R65.21 Severe sepsis with septic shock; E87.2 Acidosis; D68.9 Coagulation defect, unspecified; I42.6 Alcoholic cardiomyopathy; E87.1 Hypo-osmolality and hyponatremia; J44.0 Chronic obstructive pulmonary disease with (acute) lower respiratory infection; N39.0 Urinary tract infection, site not specified; K86.0 Alcohol-induced chronic pancreatitis; R18.8 Other ascites; I50.22 Chronic systolic (congestive) heart failure; I27.2 Other secondary pulmonary hypertension; E86.0 Dehydration; I48.2 Chronic atrial fibrillation; E87.5 Hyperkalemia; E78.5 Hyperlipidemia, unspecified; I08.1 Rheumatic disorders of both mitral and tricuspid valves; K40.20 Bilateral inguinal hernia, without obstruction or gangrene, not specified as recurrent; R13.10 Dysphagia, unspecified; F10.20 Alcohol dependence, uncomplicated; T45.515A Adverse effect of anticoagulants, initial encounter; F17.210 Nicotine dependence, cigarettes, uncomplicated; Z79.01 Long term (current) use of anticoagulants; Z79.899 Other long term (current) drug therapy; Z88.5 Allergy status to narcotic agent; Z88.0 Allergy status to penicillin; Z95.810 Presence of automatic (implantable) cardiac defibrillator; Z82.49 Family history of ischemic heart disease and other diseases of the circulatory system; Y92.009 Unspecified place in unspecified non-institutional (private) residence as the place of occurrence of the external cause
CPT/HCPCS: 36415; 36556; 36600; 51702; 71010; 71275; 74177; 74230; 80048; 80051; 80053; 80074; 80076; 80162; 80202; 80320; 81001; 82140; 82150; 82550; 82553; 82805; 83605; 83690; 83735; 83880; 83930; 83935; 84100; 84134; 84300; 84484; 85025; 85379; 85610; 85730; 86850; 86900; 86901; 87040; 87086; 87449; 93005; 93306; 96361; 96365; 96366; 96367; 96375; 96376; 99291; 99292

== ENCOUNTER 2016-10-24 09:16 | Emergency (ER) | payer MEDICARE, OTHER ==
[2016-10-24 09:26] VITALS: TEMP 97
--- NOTE | 2016-10-24 09:47 | ED ---
General Adult HPI - General Chief complaint: GI Bleed Stated complaint: rectal bleed Time Seen by Provider: 10/24/16 09:16 Source: patient, family, RN notes reviewed Mode of arrival: wheelchair Limitations: no limitations - History of Present Illness Initial comments: This is a 46-year-old male who presents emergency department with past history of dilated cardiomyopathy. Patient has a left ventricular external pump. Patient is on blood thinners. Patient stated that last night he had a bloody bowel movement into the continued and he had 2 more. Patient states it is bright red blood. Patient denies any GI bleeding history. Patient denies any hemorrhoid history. Patient states he has had no other symptoms. He denies any abdominal pain he denies nausea vomiting diarrhea. Patient denies headache patient denies lightheadedness or dizziness. Patient denies chest pain difficulty breathing or shortness of breath. - Related Data Home Medications Medication Instructions Recorded Confirmed Carvedilol [Coreg] 6.25 mg PO BID 07/25/15 07/09/16 Lisinopril [Prinivil] 2.5 mg PO DAILY 07/25/15 07/09/16 Warfarin [Coumadin] 10 mg PO MOWE 07/25/15 07/09/16 Cetirizine HCl [Zyrtec] 10 mg PO DAILY 07/09/16 07/09/16 Digoxin [Lanoxin] 125 mcg PO DAILY 07/09/16 07/09/16 Warfarin [Coumadin] 7.5 mg PO SUTUTHFRSA 07/09/16 07/09/16 Allergies Allergy/AdvReac Type Severity Reaction Status Date / Time codeine Allergy Unknown Dyspnea Verified 10/24/16 09:26 Penicillins Allergy Unknown Dyspnea Verified 10/24/16 09:26 Review of Systems ROS Statement: Those systems with pertinent positive or pertinent negative responses have been documented in the HPI. ROS Other: All systems not noted in ROS Statement are negative. Past Medical History Past Medical History: Atrial Fibrillation, Heart Failure, Hyperlipidemia, Osteoarthritis (OA), Pneumonia Additional Past Medical History / Comment(s): Pt diagnosed with cardiomyopathy end of 2007 and had episode of respiratory failure with intubation/ventilation. He is followed at the [facility]. Other hx: pericardial effusion. History of Any Multi-Drug Resistant Organisms: None Reported Past Surgical History: AICD, Cholecystectomy Additional Past Surgical History / Comment(s): 2008 AICD, cardiac cath 2016, vasectomy. July 2016 external left ventriular heart pump Past Anesthesia/Blood Transfusion Reactions: No Reported Reaction Type of Cardiac Device: AICD Device Placement Date:: 2008 Past Psychological History: No Psychological Hx Reported Smoking Status: Former smoker Past Alcohol Use History: None Reported Past Drug Use History: None Reported - Past Family History Mother Family Medical History: Congestive Heart Failure (CHF) (Mother is 69-year-old has history of congestive heart failure so is his grandmother.) Father Family Medical History: Coronary Artery Disease (CAD) (Father 7-year-old with history of CAD post CABG with hyperlipidemia.), Hyperlipidemia Brother(s) Family Medical History: No Reported History, Musculoskeletal Disorder (Patient has 3 brothers one of them with lupus and other one with spinal stenosis third one is healthy) Sister(s) Family Medical History: No Reported History (Patient has one sister who is overweight.) Son(s) Family Medical History: No Reported History (Patient has 2 sons no major medical problems) Daughter(s) Family Medical History: No Reported History (One daughter no major medical problems) General Exam - General Exam Comments Initial Comments: GENERAL: Patient is well-developed and well-nourished. Patient is nontoxic and well- hydrated and is in no acute distress. ENT: Neck is soft and supple. No significant lymphadenopathy is noted. Oropharynx is clear. Moist mucous membranes. Neck has full range of motion without eliciting any pain. EYES: The sclera were anicteric and conjunctiva were pink and moist. Extraocular movements were intact and pupils were equal round and reactive to light. Eyelids were unremarkable. PULMONARY: Unlabored respirations. Good breath sounds bilaterally. No audible rales rhonchi or wheezing was noted. CARDIOVASCULAR: Heart rate is at a normal rate however he can hear the mechanical pump functioning ABDOMEN: Soft and nontender with normal bowel sounds. No palpable organomegaly was noted. There is no palpable pulsatile mass. SKIN: Skin is clear with no lesions or rashes and otherwise unremarkable. NEUROLOGIC: Patient is alert and oriented x3. Cranial nerves II through XII are grossly intact. Motor and sensory are also intact. Normal speech, volume and content. Symmetrical smile. MUSCULOSKELETAL: Normal extremities with adequate strength and full range of motion. No lower extremity swelling or edema. No calf tenderness. LYMPHATICS: No significant lymphadenopathy is noted PSYCHIATRIC: Normal psychiatric evaluation. Normal interpersonal interactions appears functionally intact in deals appropriately with others. No signs of depression. No signs of anxiety. Limitations: no limitations Course Vital Signs 10/24/16 10/24/16 10/24/16 09:18 09:25 11:00 Temperature 97.0 F L Pulse Rate 64 113 H 92 Respiratory 17 20 Rate O2 Sat by Pulse 100 99 Oximetry Medical Decision Making - Medical Decision Making Patient's EKG shows a paced rhythm at 95 bpm QRS is 126 QT interval 384 QTC is 482. I spoke with [facility]'s cardiothoracic team they wanted the patient transferred to their facility because of the rectal bleeding and the fact that the patient is on Coumadin and they don't want to reverse that because of his ventricular pump - Lab Data Result diagrams: 10/24/16 10:30 10/24/16 10:30 Lab Results 10/24/16 10/24/16 10/24/16 Range/Units 10:30 10:30 10:30 WBC 6.7 (3.8-10.6) k/uL RBC 3.29 L (4.30-5.90) m/uL Hgb 10.8 L (13.0-17.5) gm/dL Hct 32.2 L (39.0-53.0) % MCV 97.7 (80.0-100.0) fL MCH 32.7 (25.0-35.0) pg MCHC 33.5 (31.0-37.0) g/dL RDW 16.8 H (11.5-15.5) % Plt Count 178 (150-450) k/uL Neutrophils % 76 % Lymphocytes % 17 % Monocytes % 4 % Eosinophils % 1 % Basophils % 0 % Neutrophils # 5.1 (1.3-7.7) k/uL Lymphocytes # 1.1 (1.0-4.8) k/uL Monocytes # 0.3 (0-1.0) k/uL Eosinophils # 0.0 (0-0.7) k/uL Basophils # 0.0 (0-0.2) k/uL Hypochromasia Slight Poikilocytosis Slight Anisocytosis Slight Macrocytosis Slight PT 19.0 H (9.0-12.0) sec INR 2.0 H (<1.2) APTT 29.3 (22.0-30.0) sec Sodium 139 (137-145) mmol/L Potassium 4.3 (3.5-5.1) mmol/L Chloride 107 (98-107) mmol/L Carbon Dioxide 21 L (22-30) mmol/L Anion Gap 11 mmol/L BUN 15 (9-20) mg/dL Creatinine 0.97 (0.66-1.25) mg/dL Est GFR (MDRD) Af Amer >60 (>60 ml/min/1.73 sqM) Est GFR (MDRD) Non-Af >60 (>60 ml/min/1.73 sqM) Glucose 102 H (74-99) mg/dL Calcium 8.9 (8.4-10.2) mg/dL Magnesium 1.9 (1.6-2.3) mg/dL Total Bilirubin 1.0 (0.2-1.3) mg/dL AST 17 (17-59) U/L ALT 29 (21-72) U/L Alkaline Phosphatase 79 (38-126) U/L Total Creatine Kinase (55-170) U/L CK-MB (CK-2) (0.0-2.4) ng/mL CK-MB (CK-2) Rel Index Troponin I (0.000-0.034) ng/mL Total Protein 5.8 L (6.3-8.2) g/dL Albumin 3.3 L (3.5-5.0) g/dL 10/24/16 Range/Units 10:30 WBC (3.8-10.6) k/uL RBC (4.30-5.90) m/uL Hgb (13.0-17.5) gm/dL Hct (39.0-53.0) % MCV (80.0-100.0) fL MCH (25.0-35.0) pg MCHC (31.0-37.0) g/dL RDW (11.5-15.5) % Plt Count (150-450) k/uL Neutrophils % % Lymphocytes % % Monocytes % % Eosinophils % % Basophils % % Neutrophils # (1.3-7.7) k/uL Lymphocytes # (1.0-4.8) k/uL Monocytes # (0-1.0) k/uL Eosinophils # (0-0.7) k/uL Basophils # (0-0.2) k/uL Hypochromasia Poikilocytosis Anisocytosis Macrocytosis PT (9.0-12.0) sec INR (<1.2) APTT (22.0-30.0) sec Sodium (137-145) mmol/L Potassium (3.5-5.1) mmol/L Chloride (98-107) mmol/L Carbon Dioxide (22-30) mmol/L Anion Gap mmol/L BUN (9-20) mg/dL Creatinine (0.66-1.25) mg/dL Est GFR (MDRD) Af Amer (>60 ml/min/1.73 sqM) Est GFR (MDRD) Non-Af (>60 ml/min/1.73 sqM) Glucose (74-99) mg/dL Calcium (8.4-10.2) mg/dL Magnesium (1.6-2.3) mg/dL Total Bilirubin (0.2-1.3) mg/dL AST (17-59) U/L ALT (21-72) U/L Alkaline Phosphatase (38-126) U/L Total Creatine Kinase <20 L (55-170) U/L CK-MB (CK-2) 1.8 (0.0-2.4) ng/mL CK-MB (CK-2) Rel Index Troponin I <0.012 (0.000-0.034) ng/mL Total Protein (6.3-8.2) g/dL Albumin (3.5-5.0) g/dL Disposition Clinical Impression: Gastrointestinal hemorrhage on warfarin therapy Disposition: OTHER INSTITUTION NOT DEFINED Referrals: Nahun Medrano DO [Primary Care Provider] - 1-2 days Time of Disposition: 11:06 - Out of Hospital Transfer - Req. Specs Out of Hospital Transfer - Requested Specifics: Other Emergency Center ( [facility])
[2016-10-24 10:40] LABS: Anisocytosis Slight; Basophils % (A) 0 %; CH 31.9; CHCM 32.9; Eosinophils % (A) 1 %; HCT 32.2 % (39.0-53.0); HDW 3.71; HGB 10.8 gm/dL (13.0-17.5); Hypochromasia Slight; Luc # (Auto) 0.13; Luc % (Auto) 2; Lymphocytes # (A) 1.1 k/uL (1.0-4.8); Lymphocytes % (A) 17 %; MCH 32.7 pg (25.0-35.0); MCHC 33.5 g/dL (31.0-37.0); MCV 97.7 fL (80.0-100.0); Macrocytosis Slight; Mean Platelet Volume 8.9; Monocytes # (A) 0.3 k/uL (0-1.0); Monocytes % (A) 4 %; Neutrophils # (A) 5.1 k/uL (1.3-7.7); Neutrophils % (A) 76 %; Poikilocytosis Slight; RBC 3.29 m/uL (4.30-5.90); RDW 16.8 % (11.5-15.5); WBC 6.7 k/uL (3.8-10.6); WBC (Perox) 6.63
[2016-10-24 10:47] LABS: Partial Thromboplastin Time 29.3 sec (22.0-30.0)
[2016-10-24 10:50] LABS: ALT 29 U/L (21-72); AST 17 U/L (17-59); Alkaline Phosphatase 79 U/L (38-126); Anion Gap 11 mmol/L; Blood Urea Nitrogen 15 mg/dL (9-20); Calcium 8.9 mg/dL (8.4-10.2); Carbon Dioxide 21 mmol/L (22-30); Chloride 107 mmol/L (98-107); Glucose 102 mg/dL (74-99); Magnesium 1.9 mg/dL (1.6-2.3); Non-African American GFR(MDRD) >60 (>60 ml/min/1.73 sqM); Potassium 4.3 mmol/L (3.5-5.1); Sodium 139 mmol/L (137-145); Total Protein 5.8 g/dL (6.3-8.2)
--- NOTE | 2016-10-24 10:54 | XR ---
EXAMINATION TYPE: XR chest 2V DATE OF EXAM: 10/24/2016 COMPARISON: Chest x-ray July 13, 2016. HISTORY: History of heart surgery on pump with chest pain. TECHNIQUE: Frontal and lateral views of the chest are obtained. FINDINGS: There is persistent gross cardiomegaly with dual-lead pacemaker/AICD in the left chest. Th ere is new pacer or pump device in the left upper quadrant. Sternal wires are redemonstrated. There a re small to moderate-sized bilateral pleural effusions with associated bibasilar atelectasis and/or i nfiltrate redemonstrated. Upper lungs remain clear without pneumothorax. Osseous structures are intac t. IMPRESSION: Suspect CHF exacerbation as there is cardiomegaly with small to moderate-sized bilateral pleural effusions and associated bibasilar atelectasis and/or infiltrate all identified currently.
[2016-10-24 10:56] LABS: Creatine Kinase <20 U/L (55-170)
[2016-10-24 11:01] VITALS: RESP 20
[2016-10-24 11:09] LABS: Creatine Kinase MB 1.8 ng/mL (0.0-2.4); Troponin I <0.012 ng/mL (0.000-0.034)
[2016-10-24 11:46] VITALS: PULSE 79
== END 2016-10-24 11:45 | disposition short-term general hospital (02) ==
LOC: EC 09:16
DX: K92.2 Gastrointestinal hemorrhage, unspecified (principal); Z79.01 Long term (current) use of anticoagulants; I48.91 Unspecified atrial fibrillation; I50.9 Heart failure, unspecified; I42.0 Dilated cardiomyopathy; Z87.891 Personal history of nicotine dependence; Z79.899 Other long term (current) drug therapy; Z88.0 Allergy status to penicillin; Z88.5 Allergy status to narcotic agent; Z95.811 Presence of heart assist device
CPT/HCPCS: 36415; 71020; 80053; 82550; 82553; 83735; 84484; 85025; 85610; 85730; 99285

== ENCOUNTER 2017-07-01 13:25 | Emergency (ER) | payer MEDICARE, OTHER ==
[~2017-07-01 13:25] MED LIST: CALCIUM CHLORIDE 100 MG/ML 10 ML SYRINGE ONE; DEXTROSE 50%-WATER 50 ML SYRINGE IVP ONE; EPINEPHrine 10 ML SYRINGE (0.1 MG/ML) ONE; SODIUM BICARB 8.4% 50 ML SYR (1 MEQ/ML) ONE
--- NOTE | 2017-07-01 13:44 | ED ---
General Adult HPI - General Chief complaint: Cardiac Arrest/CPR Stated complaint: CARDIAC ARREST Time Seen by Provider: 07/01/17 13:38 Source: EMS, RN notes reviewed, old records reviewed Mode of arrival: EMS Limitations: no limitations - History of Present Illness Initial comments: 46-year-old male history of cardiomyopathy and left ventricular assist device presents as cardiac arrest. EMS report approximately downtime of 12:30, 35 minutes of on scene CPR. Patient was intubated by EMS given 2 doses of epinephrine and transported to the hospital. The team managing his ventricular assist device was contacted during initial CPR by EMS. - Related Data Home Medications Medication Instructions Recorded Confirmed Carvedilol [Coreg] 6.25 mg PO BID 07/25/15 07/09/16 Lisinopril [Prinivil] 2.5 mg PO DAILY 07/25/15 07/09/16 Warfarin [Coumadin] 10 mg PO MOWE 07/25/15 07/09/16 Cetirizine HCl [Zyrtec] 10 mg PO DAILY 07/09/16 07/09/16 Digoxin [Lanoxin] 125 mcg PO DAILY 07/09/16 07/09/16 Warfarin [Coumadin] 7.5 mg PO SUTUTHFRSA 07/09/16 07/09/16 Allergies Allergy/AdvReac Type Severity Reaction Status Date / Time codeine Allergy Unknown Dyspnea Verified 10/24/16 09:26 Penicillins Allergy Unknown Dyspnea Verified 10/24/16 09:26 Review of Systems ROS Statement: Those systems with pertinent positive or pertinent negative responses have been documented in the HPI. ROS Other: All systems not noted in ROS Statement are negative. Past Medical History Past Medical History: Atrial Fibrillation, Heart Failure, Hyperlipidemia, Osteoarthritis (OA), Pneumonia Additional Past Medical History / Comment(s): Pt diagnosed with cardiomyopathy end of 2007 and had episode of respiratory failure with intubation/ventilation. He is followed at the [facility]. Other hx: pericardial effusion. History of Any Multi-Drug Resistant Organisms: None Reported Past Surgical History: AICD, Cholecystectomy Additional Past Surgical History / Comment(s): 2008 AICD, cardiac cath 2016, vasectomy. July 2016 external left ventriular heart pump Past Anesthesia/Blood Transfusion Reactions: No Reported Reaction Type of Cardiac Device: AICD Device Placement Date:: 2008 Past Psychological History: No Psychological Hx Reported Smoking Status: Former smoker Past Alcohol Use History: None Reported Past Drug Use History: None Reported - Past Family History Mother Family Medical History: Congestive Heart Failure (CHF) (Mother is 69-year-old has history of congestive heart failure so is his grandmother.) Father Family Medical History: Coronary Artery Disease (CAD) (Father 7-year-old with history of CAD post CABG with hyperlipidemia.), Hyperlipidemia Brother(s) Family Medical History: No Reported History, Musculoskeletal Disorder (Patient has 3 brothers one of them with lupus and other one with spinal stenosis third one is healthy) Sister(s) Family Medical History: No Reported History (Patient has one sister who is overweight.) Son(s) Family Medical History: No Reported History (Patient has 2 sons no major medical problems) Daughter(s) Family Medical History: No Reported History (One daughter no major medical problems) General Exam - General Exam Comments Initial Comments: 46-year-old male in cardiopulmonary arrest. Pupils were fixed and dilated. No spontaneous respirations. No spontaneous heart sounds. There is electronic normal from LVAD. Patient is poorly perfused cyanotic with no pulse. No measurable blood pressure. CPR continued, with BVM there is bilateral breath sounds. Limitations: no limitations Course Vital Signs 07/01/17 13:29 Temperature 95.6 F L Pulse Rate 0 L Pulse Rate [ 0 L Femoral] Medical Decision Making - Medical Decision Making 46-year-old male presenting in cardiopulmonary arrest. Patient does have an LVAD, team is contacted during his stay in the emergency department did discuss with the physician restaurant assistant manager from [facility], recommend usual ACLS care. Patient was resuscitated with ACLS protocol, given epinephrine, calcium, sodium bicarb, dextrose, and IV fluids. CPR was continued. Please see nursing back mentation for complete record. Patient remained in asystole with no spontaneous perfusion. Abdomen the called at [phone]. Patient's primary care physician Dr. Lake was informed. Case discussed with medical resident. I was able to perform the patient's parents who were in the emergency department. - Lab Data Lab Results 07/01/17 Range/Units 13:33 POC Glucose (mg/dL) 168 H (75-99) mg/dL POC Glu Mud Car Worker ID Linette Damon Disposition Clinical Impression: Cardiac arrest Disposition: Condition: Undetermined Is patient prescribed a controlled substance at d/c from ED?: No Referrals: None,Stated [Primary Care Provider] - 1-2 days Time of Disposition: 13:36 Preliminary Cause of : Cardiopulmonary arrest cardiomyopathy
[2017-07-01 13:52] LABS: Glucose,Whole Blood 168 mg/dL (75-99)
[2017-07-01 14:14] VITALS: PULSE 0
[2017-07-01 14:16] VITALS: TEMP 95.6
== END 2017-07-01 16:34 | disposition expired ==
LOC: EC 13:25
DX: I46.9 Cardiac arrest, cause unspecified (principal); I48.91 Unspecified atrial fibrillation; I50.9 Heart failure, unspecified; J96.90 Respiratory failure, unspecified, unspecified whether with hypoxia or hypercapnia; Z87.891 Personal history of nicotine dependence; Z79.01 Long term (current) use of anticoagulants; Z79.899 Other long term (current) drug therapy; Z88.0 Allergy status to penicillin; Z88.5 Allergy status to narcotic agent; Z95.818 Presence of other cardiac implants and grafts; Z95.810 Presence of automatic (implantable) cardiac defibrillator; Z82.49 Family history of ischemic heart disease and other diseases of the circulatory system
CPT/HCPCS: 99285; 92950; 36415; J0171